=== PATIENT | female | born 2005 | race Caucasian/White ===

== ENCOUNTER 2024-09-04 06:59 | Emergency (ER) | payer MEDICAID, SELFPAY ==
[2024-09-04 07:06] VITALS: BP 132/83; PULSE 67; TEMP 36.7; O2SAT 98; BMI 35.3
--- NOTE | 2024-09-04 07:16 | ED.GENADUL1 ---
HPI HPI - General Adult General Chief complaint: Back Pain/Injury Stated complaint: BACK PAIN Time Seen by Provider: 09/04/24 07:05 Mode of arrival: walk-in History of Present Illness HPI narrative: 19-year-old female presents to the emergency department for back pain. She is complaining of pain in the thoracic area which was not preceded by any trauma. She has a history of scoliosis but typically does not get pain this severe from her scoliosis. She explains that the scoliosis involves most of her spine. No chest pain or shortness of breath. The pain is moderate to severe. No dysuria or hematuria or flank pain. Related Data Home Medications ?Medication ?Instructions ?Recorded ?Confirmed loratadine 10 mg tablet (Claritin) 10 mg PO DAILY 09/04/24 09/04/24 Previous Rx's ?Medication ?Instructions ?Recorded methocarbamol 500 mg tablet 250 mg (1/2 x 500 mg) PO Q8H PRN 09/04/24 pain #14 tabs Allergies Allergy/AdvReac Type Severity Reaction Status Date / Time albuterol (From Ventolin HFA) Allergy thrush Verified 09/04/24 07:06 Opioid HPI Opioid Management Most Recent Opioid Data: Last Pain Scale 9 Today, 07:23 Last MAR Pain Assessment Today, 07:23 Review of Systems ROS Narrative A ten point review of systems is negative except as noted above. PFSH PFSH Social History Little interest or pleasure in doing things: not at all Feeling down, depressed, or hopeless: not at all Exam Narrative Exam Narrative: Nurses note and vital signs reviewed and patient is not hypoxic. General: The patient appears well and in no apparent distress. Patient is resting on cart. Skin: Warm, dry, no pallor noted. There is no rash noted. Head: Normocephalic, atraumatic Eye: Normal conjunctiva, no drainage Ears, Nose, Mouth, and Throat: oral mucosa is moist. Nares patent. Cardiovascular: Regular Rate and Rhythm Respiratory: Patient is in no distress, no accessory muscle use, lungs are clear to auscultation, no wheezing, rales or rhonchi Back: No bruise or rash. No palpable tenderness to lumbar area. The thoracic region where her pain is specifically has no skin defects. There does not seem to be palpable tenderness. GI: Nontender Musculoskeletal: No joint swelling Neurological: A&O, normal speech Psychiatric: Cooperative Constitutional Vital Signs, click to edit/add: Last Vital Signs Temp 98.1 F 09/04/24 07:06 Pulse 67 09/04/24 07:06 Resp 16 09/04/24 07:06 BP 132/83 09/04/24 07:06 Pulse Ox 98 09/04/24 07:06 O2 Del Method Room Air 09/04/24 07:06 Course Vital Signs Vital signs: Vital Signs Temperature 98.1 F 09/04/24 07:06 Pulse Rate 67 09/04/24 07:06 Respiratory Rate 16 09/04/24 07:06 Blood Pressure 132/83 09/04/24 07:06 Pulse Oximetry 98 09/04/24 07:06 Oxygen Delivery Method Room Air 09/04/24 07:06 Temperature 98.1 F 09/04/24 07:06 Pulse Rate 67 09/04/24 07:06 Respiratory Rate 16 09/04/24 07:06 Blood Pressure 132/83 09/04/24 07:06 Pulse Oximetry 98 09/04/24 07:06 Oxygen Delivery Method Room Air 09/04/24 07:06 Medical Decision Making MDM Narrative Medical decision making narrative: X-ray shows known scoliosis but no acute findings. I discussed medication with the patient and her mother and we have agreed that we will put her on a low-dose muscle relaxer that she will take primarily just before bedtime. She will supplement that with a low dose ibuprofen as she seems to be quite sensitive to medications. Treatment diagnosis and follow-up were discussed thoroughly. Differential Diagnosis Differential Diagnosis: Compression fracture, scoliosis, muscle strain Imaging Data Thoracic x-ray: Radiologist's impression: Levoconvex curvature at the thoracolumbar junction, dextroconvex curvature at the mid lumbar spine, degenerative disc disease at the thoracolumbar junction, no acute fracture or dislocation, mild chronic vertebral body height reduction at the T12 and L1 level Discharge Plan Discharge Chief Complaint: Back Pain/Injury Clinical Impression: Back pain, thoracic Patient Disposition: Home, Self-Care Time of Disposition Decision: 08:47 Condition: Good Mode of Transportation: Private Vehicle Prescriptions / Home Meds: New methocarbamol 500 mg tablet 250 mg PO Q8H PRN (Reason: pain) Qty: 14 0RF No Action loratadine [Claritin] 10 mg tablet 10 mg PO DAILY Print Language: Nepali Instructions: Back Pain (ED) Referrals: Physician,Non-Staff, MD [Physician] - 1 week
[2024-09-04] MEDS: KETOROLAC TROMETHAMINE 30 MG/ML VIAL IM (07:23)
== END 2024-09-04 09:02 | disposition home or self-care (01) ==
PROVIDERS: Emergency Provider Emergency Medicine; PCP Family Medicine
DX: M54.6 Pain in thoracic spine (principal); M41.9 Scoliosis, unspecified
CPT/HCPCS: 72070; 96372; 99284; J1885

== ENCOUNTER 2024-10-06 18:05 | Emergency (ER) | payer MEDICAID, SELFPAY ==
[2024-10-06] VITALS (23 sets, daily range): BP systolic 96–128; BP diastolic 46–90; PULSE 65–122; TEMP 36.8; O2SAT 92–100; BMI 38.1
--- OUTSIDE RECORDS SUMMARY | 2024-10-06 18:09 | XMS_ITS | CCD ---
Author Organization [facility] Care Team Providers Care Operator Helper Name Role Phone Diego Farr Primary Care Provider DIEGO FARR Primary Care Unavailable JATIN KWONG Attending Unavailable Diego Farr MD Primary Care Provider NICOLAS WILSON Referring Unavailable DIEGO FARR Primary Care Unavailable KATIE RASHID Attending Unavailable KATIE RASHID Admitting Unavailable DIEGO FARR Primary Care Unavailable Diego Farr MD Primary Care Provider Diego Farr MD Primary Care Provider Loretta TRAVIS, Norma Luna Primary Care [facility] er KATIE RASHID Attending Unavailable LORETTA, GREEN CHOUDARY Primary Care Adeola BURGOS GREEN CHOUDARY Primary Care KATIE Corral Attending Unavailable LORETTA, GREEN CHOUDARY Primary Care KATIE Corral Attending Unavailable LORETTA, GREEN CHOUDARY Primary Care KATIE Corral Admitting Unavailable KATIE RASHID Attending Unavailable Norma Burgos MD Primary Care Provider Sylvia Rose DO Primary Care Provider [phone] Sylvia Rose DO Primary Care Provider Sylvia Rose DO Primary Care Provider CHRIS WORKMAN Attending Unavailable NORMA BURGOS Primary Care Unavailable YUNIOR FERRARI Referring Unavailab MARCIA Orozco Attending Unavailable ROSE, SYLVIA L Primary Care Unavailable FERRARI, YUNIOR MARTINEZ Referring Unavailab le ROSE, SYLVIA L Primary Care Unavailable ROSE, SYLVIA L Primary Care Unavailable ROSE, SYLVIA L Primary Care Unavailable FERRARI, YUNIOR MARTINEZ Referring Unavailab le FERRARI, YUNIOR MARTINEZ Referring Unavailab le ROSE, SYLVIA L Primary Care Unavailable ROSE, SYLVIA L Primary Care Unavailable FERRARI, YUNIOR MARTINEZ Referring Unavailab le ROSE, SYLVIA L Primary Care Unavailable FERRARI, YUNIOR MARTINEZ Referring Unavailab le FERRARI, YUNIOR MARTINEZ Referring Unavailab le ROSE, SYLVIA L Primary Care Unavailable TORSTEN BEGUM Referring Unavailable KAKARALA, GREEN C Primary Care Unavailable FERRARI, YUNIOR GOLDDO Referring Unavailab le ROSE, SYLVIA L Primary Care Unavailable RODRICK WHYTE Attending Unavailable KAKARALA, GREEN C Primary Care Unavailable ROSE, SYLVIA L Primary Care Unavailable FERRARI, YUNIOR GOLDDO Referring Unavailab le KAKARALA, GREEN C Primary Care Unavailable LENA COULTER Attending Unavailable KAKARALA, GREEN C Primary Care Unavailable STEPHEN HERNANDEZ Attending Unavailable ROSE, SYLVIA L Primary Care Unavailable ROSE, SYLVIA L Attending Unavailable ROSE, SYLVIA L Referring Unavailable ROSE, SYLVIA L Primary Care Unavailable ROSE, SYLVIA L Attending Unavailable ROSE, SYLVIA L Referring Unavailable ROSE, SYLVIA L Primary Care Unavailable ROSE, SYLVIA L Attending Unavailable ROSE, SYLVIA L Referring Unavailable ROSE, SYLVIA L Primary Care Unavailable ALEJANDRA CORONEL Attending Unavailable ROSE, SYLVIA L Referring Unavailable ROSE, SYLVIA L Primary Care Unavailable ROSE, SYLVIA L Attending Unavailable DIEGO FARR Referring Unavailable ROSE, SYLIVA L Primary Care Unavailable Allergies Allergy Classification Reported Allergen(s) Allergy Type Date of Onset Reaction(s) Facility (20 sources) Acetaminophen; Translations: [ACETAMINOPHEN] Drug Allergy 3 Dizziness only, Dizziness or Vertigo, Dizziness [facility] (9 sources) Ragweed pollen; Translations: [RAGWEED POLLEN] Propensity to adverse reactions to drug 4 [facility] (9 sources) Instant Hand Chief Sustainability Officer; Translations: [INSTANT HAND USER INTERFACE DEVELOPER] Propensity to adverse reactions to drug 2 Rash [facility] (2 sources) false ragweed pollen extract / western ragweed pollen extract [facility] [address] [facility] short ragweed pollen extract Drug Allergy 4 [facility] Ethyl Alcohol (Skin Cleanser) Propensity to adverse reactions to drug 2 Rash [facility] (6 sources) Cat Dander; Translations: [CAT DANDER] Propensity to adverse reactions to drug 5 [facility] Medications Current Medications Medication Drug Class(es) Dates Sig (Normalized) Sig (Original) [id number] 200 actuat albuterol 0.09 mg/actuat metered dose inhaler (20 sources) beta2-Adrenergic Agonist Start: 08-12-2024 take 2 puff(s) by inhalation every four hours as needed for wheezing PROAIR HFA 90 mcg/actuation inhaler Indications: Moderate persistent asthma without complication Inhale 2 puffs every 4 (four) hours as needed for wheezing or shortness of breath. 18 g 3 08/12/2024 Active Start: 07-31-2024 take 3 mL by inhalat ion every six hours as needed for wheezing albuterol (PROVENTIL,VENTOLIN) 2.5 mg /3 mL (0.083 %) nebulizer solution Indications: Mild intermittent asthma without complication Inhale 3 mL (2.5 mg total) by nebulization every 6 (six) hours as needed for wheezing. 150 mL 07/31/2024 Active Start: 07-29-2024 End: 08-12-2024 take 2 puff(s) by inhalation every six hours as needed for wheezing albuterol (PROAIR HFA) 90 mcg/actuation inhaler Indications: Mild intermittent asthma without complication Inhale 2 puffs every 6 (six) hours as needed for wheezing. 18 g 1 07/29/2024 08/12/2024 Discontinued (Reorder) Start: 05-21-2018 take 2 puff(s) by in halation every six hours as needed albuterol 90 mcg/actuation inhaler Inhale 2 (two) puffs every 6 (six) hours as needed . 0 05/21/2018 Active Start: 09-10-2016 End: 04-02-2019 albuterol (PROVENTIL) (5 MG/ ML) 0.5% nebulizer solution Take 0.5 mLs by nebulization every 6 hours as needed for Wheezing 30 vial 0 09/10/2016 04/02/2019 Discontinued (LIST CLEANUP) End: 07-29-2024 take 2 puff(s) by inhalation four times daily albuterol (PROVENTIL HFA;VENTOLIN HFA) 90 mcg/actuation inhaler Inhale 2 puffs 4 (four) times a day. 07/29/2024 Discontinued take 2 puff(s) by in halation every six hours as needed for wheezing albuterol sulfate HFA 108 (90 Base) MCG/ACT inhaler Inhale 2 puffs into the lungs every 6 hours as needed for Wheezing 0 Active amoxicillin 50 mg/ml / clavulanate 12.5 mg/ml oral suspension (2 sources) Penicillin-class Antibacterial Start: 05-11-2022 amoxicillin-clavulanate (AUGMENTIN) 250-62.5 mg/5 mL suspension atomoxetine 25 mg oral capsule (2 sources) Norepinephrine Reuptake Inhibitor Start: 03-21-2024 End: 04-18-2024 take 1 capsule by mouth in the morning atomoxetine (STRATTERA) 25 mg capsule Indications: Attention deficit hyperactivity disorder (ADHD), predominantly inattentive type Take 1 capsule (25 mg total) by mouth in the morning. 30 capsule 1 03/21/2024 04/18/2024 Discontinued (Side effects) azithromycin 250 mg oral tablet (3 sources) Macrolide Antimicrobial Start: 07-31-2024 End: 08-05-2024 azithromycin (ZITHROMAX) 250 mg tablet Take 2 tablets the first day, then 1 tablet daily for 4 days. 6 tablet 07/31/2024 08/05/2024 Active Start: 04-18-2024 End: 04-23-2024 take 19.7 mL by mouth once daily in the morning azithromycin (ZITHROMAX) 200 mg/5 mL suspension Take 19.7 mL (788 mg total) by mouth in the morning for 5 days. Give 788 mg (19.7 ml) by mouth first day then 392 mg (9.8 ml) by mouth daily x 4 days. 98.5 mL 04/18/2024 04/23/2024 Active budesonide 0.125 mg/ml inhalation suspension (20 sources) Corticosteroid Start: 07-31-2024 End: 08-12-2024 take 2 mL by inhalation in the morning budesonide (PULMICORT) 0.25 mg/2 mL nebulizer solution Indications: Moderate persistent asthma without complication Inhale 2 mL (0.25 mg total) by nebulization in the morning and 2 mL (0.25 mg total) before bedtime. 120 mL 2 08/12/2024 Active End: 07-31-2024 take 2 puff(s) by inhalation in the morning budesonide (PULMICORT) 90 mcg/actuation inhaler Inhale 2 puffs in the morning and 2 puffs before bedtime. 07/31/2024 Discontinued budesonide (PULM ICORT) 0.5 MG/2ML nebulizer suspension Take 2 mLs by nebulization 2 times daily Active Budesonide (PULM ICORT IN) Inhale into the lungs as needed Active budesonide (PULM ICORT) 0.5 mg/2 mL nebulizer solution 2 mL (0.5 mg total) 2 (two) times a day . 0 Active calcium chloride 0.0014 meq/ml / potassium chloride 0.004 meq/ml / sodium chloride 0.103 meq/ml / sodium lactate 0.028 meq/ml injectable solution (1 source) Start: 12-01-2020 lactated ringers infusion cephalexin 500 mg oral capsule (2 sources) Cephalosporin Antibacterial Start: 12-01-2020 End: 12-08-2020 take 1 capsule by mouth four times daily cephALEXin (KEFLEX) 500 MG capsule Take 1 capsule by mouth 4 times daily for 7 days 28 capsule 0 12/01/2020 12/08/2020 Active cetirizine hydrochloride 10 mg oral tablet (2 sources) Histamine-1 Receptor Antagonist Start: 04-26-2022 cetirizine (ZYRTEC) 10 MG tablet CHILDREN'S IBUPROFEN ORAL (8 sources) CHILDREN'S IBUPROFEN ORAL Take 0.5 tablets by mouth. Active diphenhydrAMINE hydrochloride 25 mg oral capsule (5 sources) Histamine-1 Receptor Antagonist take 1 capsule by mouth every six hours as needed diphenhydrAMINE (BENADRYL) 25 MG capsule Take 25 mg by mouth every 6 hours as needed for Itching 0 Active diphenhydrAMINE hydrochloride 10 mg/ml / zinc acetate 1 mg/ml topical cream (12 sources) Histamine-1 Receptor Antagonist Start: 12-16-2023 diphenhydrAMINE-zin c acetate (BENADRYL) 1-0.1 % cream Apply topically 3 times daily as needed. 28 g 12/16/2023 Active fluticasone propionate 0.05 mg/actuat metered dose nasal spray (20 sources) Corticosteroid take 1 spray(s) nasal route in the morning fluticasone propionate (FLONASE ALLERGY RELIEF) 50 mcg/actuation nasal spray Administer 1 spray into each nostril in the morning. Active take 1 spray(s) nasal route once daily fluticasone (FLONASE) 50 MCG/ACT nasal spray 1 spray by Each Nostril route daily Active fluticasone prop ionate (FLONASE) 50 mcg/actuation nasal spray 1 (one) spray every night at bedtime . 0 Active levocetirizine dihydrochloride 5 mg oral tablet (5 sources) Histamine-1 Receptor Antagonist Start: 07-29-2024 take 1 tablet by mouth once daily levocetirizine (XYZAL) 5 mg tablet Indications: Mild intermittent asthma without complication Take 1 tablet (5 mg total) by mouth nightly. 30 tablet 07/29/2024 Active lidocaine 0.04 mg/mg medicated patch (7 sources) Antiarrhythmic, Amide Local Anesthetic Start: 06-23-2024 1 patch, TransDERmal, Administer over 12 Hours, DAILY, First dose on 06/23/24 at 1900, Apply patch to knee. The civil engineering project manager's recommendations for the number of patches that can be applied within a 24-hour period varies from 1 to 4 times daily and the duration of application varies from 8 to 24 hours; refer to the civil engineering project manager's labeling for product-specific recommendations. Start: 06-23-2024 apply 1 dose transde rmal route once daily lidocaine (LIDODERM) 5 % Place 1 patch onto the skin daily 12 hours on, 12 hours off. 30 patch 06/23/2024 Active Start: 09-20-2020 lidocaine 4 % external patch 1 patch Start: 09-20-2020 End: 09-24-2020 apply 1 dose transdermal route once daily lidocaine (LIDODERM) 5 % Place 1 patch onto the skin daily 12 hours on, 12 hours off. 6 patch 0 09/20/2020 09/24/2020 Discontinued (Therapy completed) Start: 08-03-2020 End: 08-03-2020 lidocaine 1 % injection 5 mL loratadine 10 mg oral tablet (20 sources) loratadine (CLAR ITIN) 10 mg tablet Take 1 tablet (10 mg total) by mouth. Active montelukast 5 mg oral tablet (16 sources) Leukotriene Receptor Antagonist take 5 mg by mouth once daily Montelukast Sodium (SINGULAIR PO) Take 5 mg by mouth nightly 0 Active montelukast (Sin gulair) 5 MG chewable tablet mupirocin 20 mg/ml topical cream (3 sources) RNA Synthetase Inhibitor Antibacterial Start: 08-03-2020 End: 09-02-2020 mupirocin (BACTROBAN) 2 % cream Apply topically 3 times daily. 1 Tube 1 08/03/2020 09/02/2020 Active Start: 08-03-2020 End: 08-03-2020 mupirocin (BACTROBAN) 2 % oi ntment Apply topically 3 times daily. 22 g 0 08/03/2020 08/03/2020 Discontinued (DUPLICATE) polyethylene glycol 3350 170 00 mg powder for oral solution (18 sources) Osmotic Laxative polyethylene gl ycol (GLYCOLAX) 17 gram packet Take 17 g by mouth daily as needed. Active End: 11-04-2020 polyethylene glycol (GLYCOLA X) powder Take 8.5 g by mouth as needed 0 11/04/2020 Discontinued (LIST CLEANUP) predniSONE 20 mg oral tablet (2 sources) Start: 07-31-2024 End: 08-05-2024 take 1 tablet by mouth in the morning, then take 1 tablet by mouth at bedtime predniSONE (DELTASONE) 20 mg tablet Take 1 tablet (20 mg total) by mouth in the morning and 1 tablet (20 mg total) before bedtime. Do all this for 5 days. 10 tablet 07/31/2024 08/05/2024 Active Completed/Discontinued Medications Medication Drug Class(es) Dates Sig (Normalized) Sig (Original) acetaminophen 325 mg oral tablet (8 sources) Start: 03-25-2024 End: 03-25-2024 take 4000 mg by mouth every twenty-four hours 325 mg, Oral, ONCE, 1 dose, On 03/25/24 at 1715, Maximum dose of acetaminophen is 4000 mg from all sources in 24 hours. Start: 12-01-2020 take 2 tablets by mo uth every six hours as needed for pain acetaminophen (TYLENOL) 325 MG tablet Take 2 tablets by mouth every 6 hours as needed for Pain 1 tablet 0 12/01/2020 Active Start: 12-01-2020 acetaminophen (TYLENOL) tablet 650 mg Start: 09-20-2020 End: 09-20-2020 acetaminophen (TYLENOL) tabl et 650 mg 50 ml clindamycin 12 mg/ml injection (7 sources) Lincosamide Antibacterial Start: 11-04-2020 End: 11-04-2020 clindamycin (CLEOCIN) 600 mg in dextrose 5 % 50 mL IVPB End: 09-25-2020 take 150 mg by mouth three times daily clindamycin (CLEOCIN) 75 MG/5ML solution Take 150 mg by mouth 3 times daily 0 09/25/2020 Discontinued doxycycline hyclate 100 mg oral capsule (6 sources) Tetracycline-class Drug Start: 08-12-2024 End: 08-19-2024 take 1 capsule by mouth in the morning, then take 1 capsule by mouth at bedtime doxycycline (VIBRAMYCIN) 100 mg capsule Indications: Bronchitis Take 1 capsule (100 mg total) by mouth in the morning and 1 capsule (100 mg total) before bedtime. Do all this for 7 days. 14 capsule 08/12/2024 08/19/2024 Start: 11-04-2020 End: 11-14-2020 take 1 tablet by mouth twice daily doxycycline monohydrate (ADOXA) 100 MG tablet Take 1 tablet by mouth 2 times daily for 10 days 20 tablet 0 11/04/2020 11/14/2020 Active Start: 09-24-2020 End: 10-04-2020 take 1 tablet by mouth twice daily doxycycline monohydrate (ADOXA) 100 MG tablet Take 1 tablet by mouth 2 times daily for 7 days 14 tablet 0 09/24/2020 10/01/2020 Active ibuprofen 400 mg oral tablet (19 sources) Nonsteroidal Anti-inflammatory Drug Start: 03-25-2024 End: 03-25-2024 take 1 dose by mouth once 200 mg, Oral, ONCE, 1 dose, On Mon03/25/24 at 1715 Start: 12-01-2020 take 2 tablets by [facility] every six hours as needed for pain ibuprofen (ADVIL;MOTRIN) 200 MG tablet Take 2 tablets by mouth every 6 hours as needed for Pain 1 tablet 0 12/01/2020 Active Start: 12-01-2020 ibuprofen (ADV IL;MOTRIN) 100 MG/5ML suspension 400 mg Start: 08-03-2020 End: 08-03-2020 ibuprofen (ADVIL;MOTRIN) 100 MG/5ML suspension 400 mg End: 12-01-2020 take 5 mg by mouth every four hours as needed for fever ibuprofen (ADVIL;MOTRIN) 100 MG/5ML suspension Take 5 mg/kg by mouth every 4 hours as needed for Fever 0 12/01/2020 Discontinued (Stop Taking at Discharge) iopamidol (ISOVUE-370) 76 % injection 75 mL (1 source) Start: 11-04-2020 End: 11-04-2020 iopamidol (ISOVUE-370) 76 % injection 75 mL 1 ml ketorolac tromethamine 30 mg/ml cartridge (1 source) Nonsteroidal Anti-inflammatory Drug, Cyclooxygenase Inhibitor Start: 11-26-2023 End: 11-26-2023 ketorolac (TORADOL) injection 30 mg Start: 11-26-2023 End: 11-26-2023 ketorolac (TORADOL) injectio n 30 mg ondansetron 4 mg disintegrating oral tablet (2 sources) Serotonin-3 Receptor Antagonist Start: 06-14-2016 End: 04-02-2019 take 1 tablet by mouth every four hours as needed for nausea ondansetron (ZOFRAN ODT) 4 MG disintegrating tablet Take 1 tablet by mouth every 4 hours as needed for Nausea or Vomiting 15 tablet 0 06/14/2016 04/02/2019 Discontinued (LIST CLEANUP) 50 ml sodium chloride 9 mg/ml injection (5 sources) Start: 11-26-2023 End: 11-26-2023 sodium chloride 0.9 % bolus 1,000 mL Start: 12-01-2020 0.9 % sodium c hloride infusion Start: 12-01-2020 sodium chlorid e flush 0.9 % injection 5-40 mL Start: 11-04-2020 0.9 % sodium c hloride infusion sulfamethoxazole 40 mg/ml / trimethoprim 8 mg/ml oral suspension (7 sources) Dihydrofolate Reductase Inhibitor Antibacterial, Sulfonamide Antimicrobial Start: 08-26-2020 End: 08-26-2020 sulfamethoxazole-trimethopri m (BACTRIM;SEPTRA) 200-40 MG/5ML suspension 20 mL Start: 08-03-2020 End: 08-10-2020 take 20 mL by mouth twice daily sulfamethoxazole-trimethoprim (BACTRIM;SEPTRA) 200-40 MG/5ML suspension Take 20 mLs by mouth 2 times daily for 7 days 280 mL 0 08/03/2020 08/10/2020 Active Start: 07-23-2020 End: 07-23-2020 sulfamethoxazole-trimethopri m (BACTRIM;SEPTRA) 200-40 MG/5ML suspension 20 mL Start: 07-23-2020 End: 07-30-2020 take 20 mL by mouth twice daily sulfamethoxazole-trimethoprim (BACTRIM;SEPTRA) 200-40 MG/5ML suspension Take 20 mLs by mouth 2 times daily for 7 days 280 mL 0 07/23/2020 07/30/2020 Active Start: 04-25-2018 End: 04-02-2019 sulfamethoxazole-trimethopri m (BACTRIM DS;SEPTRA DS) 800-160 MG per tablet Bactrim suspension 200-40 per 5 mL Sig : 20 mL by mouth twice a day for 10 days. 20 tablet 0 04/25/2018 04/02/2019 Discontinued (Therapy completed) Problems Active Problems Problem Classification Problem Date Documented Date Episodic/Chronic Anxiety disorders (1 source) Anxiety Onset: 03-21-2024 Chronic Asthma (17 sources) Mild intermittent asthma; Translations: [Mild intermittent asthma, uncomplicated] Onset: 03-01-2024 03-01-2024 Chronic Attention-deficit, conduct, and disruptive behavior disorders (1 source) Attention deficit hyperactivity disorder, predominantly inattentive type; Translations: [Attention-deficit hyperactivity disorder, predominantly inattentive type] 03-21-2024 Chronic Attention-deficit, conduct, and disruptive behavior disorders (1 source) Attention-deficit hyperactivity disorder, predominantly inattentive type; Translations: [Attention-deficit hyperactivity disorder, predominantly inattentive type] Onset: 03-21-2024 Chronic Attention-deficit, conduct, and disruptive behavior disorders (1 source) Attention deficit hyperactivity disorder Onset: 03-21-2024 Chronic Chronic obstructive pulmonary disease and bronchiectasis (3 sources) Bronchitis; Translations: [Bronchitis, not specified as acute or chronic] Onset: 08-12-2024 04-18-2024 Episodic Digestive congenital anomalies (20 sources) Imperforate anus; 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, 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] Onset: 04-19-2012 03-09-2011 Chronic E Codes: Fall (1 source) Fall; Translations: [Unspecified fall, initial encounter] Episodic Genitourinary congenital anomalies (20 sources) Congenital absence of vagina; 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] Onset: 04-19-2012 Resolved: 02-08-2024 03-09-2011 Chronic Malaise and fatigue (2 sources) Other fatigue; Translations: [Fatigue] Onset: 08-12-2024 08-12-2024 Episodic Other acquired deformities (8 sources) Scoliosis deformity of spine; Translations: [Scoliosis, unspecified] Onset: 02-08-2024 02-08-2024 Chronic Other congenital anomalies (20 sources) VATER association; 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] Onset: 02-08-2024 03-09-2011 Chronic Other congenital anomalies (20 sources) Preauricular dimple; 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] Onset: 06-11-2018 11-18-2020 Chronic Other congenital anomalies (4 sources) Preauricular sinus and cyst; 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] Onset: 05-17-2022 Chronic Other congenital anomalies (1 source) 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; 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] Onset: 02-08-2024 Chronic Other injuries and conditions due to external causes (1 source) Injury of left wrist; Translations: [Unspecified injury of left wrist, hand and finger(s), initial encounter] 04-14-2023 Episodic Other non-traumatic joint disorders (1 source) Knee pain; Translations: [Pain in right knee] Episodic Other non-traumatic joint disorders (1 source) Acute ankle pain; Translations: [Pain in right ankle and joints of right foot] Episodic Other upper respiratory infections (2 sources) Upper respiratory infection; Translations: [Acute upper respiratory infection, unspecified] Onset: 07-29-2024 07-29-2024 Episodic Spondylosis; intervertebral disc disorders; other back problems (1 source) Low back pain; Translations: [Low back pain] Episodic Superficial injury; contusion (2 sources) Contusion of right knee; Translations: [Contusion of right knee, initial encounter] Onset: 06-23-2024 06-23-2024 Episodic Unclassified (1 source) Sprain of right ankle; Translations: [Sprain of right ankle, unspecified ligament, initial encounter] Unclassified (1 source) Injury of left knee Unclassified (1 source) Establish Care Onset: 02-08-2024 Past or Other Problems Problem Classification Problem Date Documented Date Episodic/Chronic Allergic reactions (2 sources) Allergic reaction; Translations: [Allergy, unspecified, initial encounter] Onset: 12-16-2023 12-16-2023 Episodic Cardiac dysrhythmias (2 sources) Palpitations; Translations: [Palpitations] Onset: 12-15-2023 12-15-2023 Episodic E Codes: Natural/environment (1 source) Bitten by dog, initial encounter; Translations: [Bitten by dog, initial encounter] Onset: 03-25-2024 Episodic Joint disorders and dislocations; trauma-related (20 sources) Dislocation of hip joint; Translations: [Unspecified dislocation of unspecified hip, initial encounter] Onset: 11-18-2020 11-18-2020 Episodic Mood disorders (8 sources) Mood disorders Onset: 03-21-2024 Resolved: 08-12-2024 03-21-2024 Nonspecific chest pain (2 sources) Chest pain; Translations: [Chest pain, unspecified] Onset: 11-26-2023 11-26-2023 Episodic Open wounds of extremities (2 sources) Dog bite of hand; Translations: [Open bite of right hand, initial encounter] Onset: 03-25-2024 03-25-2024 Episodic Other and unspecified benign neoplasm (20 sources) Dermoid cyst of face; Translations: [Other benign neoplasm of skin of unspecified part of face] Onset: 09-25-2020 Episodic Other congenital anomalies (8 sources) Vertebral abnormalities, anal atresia, cardiac abnormalities, tracheo-esophageal fistula, renal anomalies, limb defects syndrome; 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] Onset: 10-09-2015 Resolved: 02-08-2024 02-08-2024 Chronic Other connective tissue disease (2 sources) Patellar tendinitis, right knee; Translations: [Patellar tendinitis, right knee] Onset: 03-14-2024 Episodic Other connective tissue disease (1 source) Achilles tendinitis, left leg; Translations: [Achilles tendinitis, left leg] Onset: 08-23-2023 Episodic Other injuries and conditions due to external causes (1 source) Unspecified injury of left shoulder and upper arm, initial encounter; Translations: [Shoulder injury, left, initial encounter] Episodic Other lower respiratory disease (1 source) Cough Onset: 04-18-2024 Episodic Other upper respiratory disease (3 sources) Nasal congestion; Translations: [Nasal Congestion] Onset: 09-18-2023 Episodic Other upper respiratory disease (1 source) Pain in throat Onset: 04-18-2024 Episodic Skin and subcutaneous tissue infections (20 sources) Cellulitis of face; Translations: [Abscess] Onset: 04-08-2018 04-08-2018 Episodic Sprains and strains (10 sources) Sprain of left hand; Translations: [Sprain of unspecified part of left wrist and hand, initial encounter] Onset: 02-08-2024 Resolved: 02-08-2024 Episodic Results Test Name Value Interpretation Reference Range Facility COVID-19, Rapidon 07-29-2024 SARS-CoV-2 (COVID-19) RdRp gene KELLY+probe Ql (Resp) Not detected Not Detected [facility] Comment on above: Rapid NAAT: The specimen is NEGATIVE for SARS-CoV-2, the novel coronavirus associated with COVID-19. The ID NOW COVID-19 assay is designed to detect the virus that causes COVID-19 in patients with signs and symptoms of infection who are suspected of COVID-19. An individual without symptoms of COVID-19 and who is not shedding SARS-CoV-2 virus would expect to have a negative (not detected) result in this assay. Negative results should be treated as presumptive and, if inconsistent with clinical signs and symptoms or necessary for patient management, should be tested with an alternative molecular assay. Negative results do not preclude SARS-CoV-2 infection and should not be used as the sole basis for patient management decisions. Methodology: Isothermal Nucleic Acid Amplification Specimen Description .NASOPHARYNGEAL SWAB [facility] Flu A/B Ag Detectionon 07-29 Flu A Ag Detection Negative Normal NEG [facility] Comment on above: Result Comment: for Influenza A Antigen Performed By: #### F LUABA #### [facility] [address] [place] [address] Frame Hand: Reji Harmon MD Flu B Ag Detection Negative Normal NEG [facility] Comment on above: Result Comment: for Influenza B Antigen. Performed By: #### F LUABA #### [facility] [address] [place] [address] Frame Hand: Reji Harmon MD Rapid Strep Screenon 025 Specimen source Nom (Unsp spec) .THROAT SWAB [facility] Rapid influenza A/B antigens on 07-29-2024 FLUAV Ag Ql (Unsp spec) Negative NEGATIVE B on [facility] Comment on above: for Influenza A Anti gen FLUBV Ag Ql (Unsp spec) Negative NEGATIVE B on [facility] Comment on above: for Influenza B Anti gen. [facility] [id number] 07-29-2024 SARS-CoV-2 (COVID-19) RNA KELLY+probe Ql (Unsp spec) Not detected Normal NOTDET [facility] Comment on above: Result Comment: Rapid NAAT: The specimen is NEGATIVE for SARS-CoV-2, the novel coronavirus associated with COVID-19. The ID NOW COVID-19 assay is designed to detect the virus that causes COVID-19 in patients with signs and symptoms of infection who are suspected of COVID-19. An individual without symptoms of COVID-19 and who is not shedding SARS-CoV-2 virus would expect to have a negative (not detected) result in this assay. Negative results should be treated as presumptive and, if inconsistent with clinical signs and symptoms or necessary for patient management, should be tested with an alternative molecular assay. Negative results do not preclude SARS-CoV-2 infection and should not be used as the sole basis for patient management decisions. Methodology: Isothermal Nucleic Acid Amplification Performed By: #### C OVRB #### [facility] [address] [place] [address] Frame Hand: Reji Harmon MD Strep Group A, Rapidon 07-29 Strep A, Molecular Negative Normal NEG [facility] Comment on above: Performed By: #### R SAB #### [facility] [address] [place] [address] Frame Hand: Reji Harmon MD Source .THROAT SWAB Normal [facility] Comment on above: Performed By: #### R SAB #### [facility] [address] [place] [address] Frame Hand: Reji Harmon MD XR CHEST (2 VW)on 07-29-2024 XR CHEST (2 VW) EXAMINATION: TWO XRAY VIEWS OF THE CHEST 07/29/2024 10:16 am COMPARISON: 11/26/2023 HISTORY: ORDERING SYSTEM PROVIDED HISTORY: cough TECHNOLOGIST PROVIDED HISTORY: cough FINDINGS: The lungs are without acute focal process. There is no effusion or pneumothorax. The cardiomediastinal silhouette is stable. The osseous structures are stable. Stable scoliosis IMPRESSION: No acute process. Interpreted by: Lior Bermeo MD Signed by: Lior Bermeo MD 07/29/24 Final result Normal [facility] XR Chest 2 Viewson No acute process. [facility] RIS CONSOLIDATED EXAMINATION: TWO XRAY VIEWS OF THE CHEST 07/29/2024 10:16 am COMPARISON: 11/26/2023 HISTORY: ORDERING SYSTEM PROVIDED HISTORY: cough TECHNOLOGIST PROVIDED HISTORY: cough FINDINGS: The lungs are without acute focal process. There is no effusion or pneumothorax. The cardiomediastinal silhouette is stable. The osseous structures are stable. Stable scoliosis [facility] RIS CONSOLIDATED Lior Bermeo MD - 07/29/2024 EXAMINATION: TWO XRAY VIEWS OF THE CHEST 07/29/2024 10:16 am COMPARISON: 11/26/2023 HISTORY: ORDERING SYSTEM PROVIDED HISTORY: cough TECHNOLOGIST PROVIDED HISTORY: cough FINDINGS: The lungs are without acute focal process. There is no effusion or pneumothorax. The cardiomediastinal silhouette is stable. The osseous structures are stable. Stable scoliosis IMPRESSION: No acute process. [facility] Radiology Study observation (narrative) [facility] [employer] [facility] XR Chest 2 ViewsOrdered By: Lior Bermeo on 07-29-2024 [facility] [employer] Work Phone: XR KNEE RIGHT (3 VIEWS)on XR KNEE RIGHT (3 VIEWS) EXAMINATION: THREE XRAY VIEWS OF THE RIGHT KNEE 06/23/2024 6:06 pm COMPARISON: Previous right knee study from 12/05/2022 HISTORY: ORDERING SYSTEM PROVIDED HISTORY: Fall with Right Knee Injury TECHNOLOGIST PROVIDED HISTORY: Fall with Right Knee Injury FINDINGS: No evidence of acute fracture or dislocation. No focal osseous lesion. No evidence of joint effusion. No focal soft tissue abnormality. IMPRESSION: No acute abnormality of the knee. Interpreted by: Jarod Kendall MD Signed by: Jarod Kendall MD 06/23/24 Final result Normal [facility] XR Knee - right 3 Viewson No acute abnormality of the knee. [facility] RIS CONSOLIDATED EXAMINATION: THREE XRAY VIEWS OF THE RIGHT KNEE 06/23/2024 6:06 pm COMPARISON: Previous right knee study from 12/05/2022 HISTORY: ORDERING SYSTEM PROVIDED HISTORY: Fall with Right Knee Injury TECHNOLOGIST PROVIDED HISTORY: Fall with Right Knee Injury FINDINGS: No evidence of acute fracture or dislocation. No focal osseous lesion. No evidence of joint effusion. No focal soft tissue abnormality. [facility] RIS CONSOLIDATED Jarod Kendall MD - 06/23/2024 EXAMINATION: THREE XRAY VIEWS OF THE RIGHT KNEE 06/23/2024 6:06 pm COMPARISON: Previous right knee study from 12/05/2022 HISTORY: ORDERING SYSTEM PROVIDED HISTORY: Fall with Right Knee Injury TECHNOLOGIST PROVIDED HISTORY: Fall with Right Knee Injury FINDINGS: No evidence of acute fracture or dislocation. No focal osseous lesion. No evidence of joint effusion. No focal soft tissue abnormality. IMPRESSION: No acute abnormality of the knee. [facility] Radiology Study observation (narrative) [facility] [employer] [facility] XR Knee - right 3 ViewsOrder ed By: Jarodletha Kendall on 06-23-2024 [facility] Work Phone: XR HAND LEFT (MIN 3 VIEWS)on 03-25-2024 XR HAND LEFT (MIN 3 VIEWS) EXAMINATION: THREE XRAY VIEWS OF THE LEFT HAND 03/25/2024 2:09 pm COMPARISON: None. HISTORY: ORDERING SYSTEM PROVIDED HISTORY: dog bite TECHNOLOGIST PROVIDED HISTORY: dog bite FINDINGS: There is no evidence of acute fracture. There is normal alignment. No acute joint abnormality. No focal osseous lesion. No focal soft tissue abnormality. IMPRESSION: No acute osseous abnormality. Interpreted by: Lior Bermeo MD Signed by: Lior Bermeo MD 03/25/24 Final result Normal [facility] Basic Metabolic Panelon 10-30 Est, Asha Diaz Rate - [facility] Comment on above: These results are not intended for use in patients <18 years of age. eGFR results are calculated without a race factor using the 2020 CKD-EPI equation. Careful clinical correlation is recommended, particularly when comparing to results calculated using previous equations. The CKD-EPI equation is less accurate in patients with extremes of muscle mass, extra-renal metabolism of creatine, excessive creatine ingestion, or following therapy that affects renal tubular secretion. Urea nitrogen/Creatinine [Mass ratio] 17 mg/mg - [facility] Basic Metabolic Profon 11-25 Anion gap [Moles/Vol] 15 mmol/L Normal 9-17 [facility] Comment on above: Performed By: #### C CELY ORDONEZ BMP ####[address] [place] [address] lab Director: Reji Harmon MD Calcium [Mass/Vol] 9.9 mg/dL Normal 8.6-10.4 [facility] Comment on above: Performed By: #### C CELY ORDONEZ BMP ####[address] [place] [address] lab Director: Reji Harmon MD Chloride [Moles/Vol] 104 mmol/L Normal 98-107 [facility] Comment on above: Performed By: #### C DP, TROPI, BMP ####[address] , [place] [id number] Lab Director: Reji Harmon MD CO2 [Moles/Vol] 21 mmol/L Normal 20-31 [facility] Comment on above: Performed By: #### C DP, TROPI, BMP ####[address] , [place] [id number] [facility] Director: Reji Harmon MD Creatinine [Mass/Vol] 0.9 mg/dL Normal 0.5-0.9 [facility] Comment on above: Performed By: #### C DP TROPI, BMP ####[address] , [place] [id number] Lab Director: Reji Harmon MD Glucose [Mass/Vol] 81 mg/dL Normal 70-99 [facility] Comment on above: Performed By: #### C DP TROPI, BMP ####[address] , [place] [id number] Lab Director: Reji Harmon MD Potassium [Moles/Vol] 3.8 mmol/L Normal 3.7-5.3 [facility] Comment on above: Performed By: #### C DP TROPI, BMP ####[address] , [place] [id number] Lab Director: Reji Harmon MD Sodium [Moles/Vol] 140 mmol/L Normal 135-144 [facility] Comment on above: Performed By: #### C DP, TROPI, BMP ####[address] [place] [address] lab Director: Reji Harmon MD Urea nitrogen [Mass/Vol] 15 mg/dL Normal 6-20 [facility] Comment on above: Performed By: #### C DP, TROPI, BMP ####[facility] [place] [address] Lab Director: Reji Harmon MD BUN/CRE Ratio 17 Normal 9-[address] [facility] Comment on above: Performed By: #### C CELY ORDONEZ BMP ####[facility] [place] [address] lab Director: Reji Harmon MD GFR/1.73 sq M.predicted among non-blacks MDRD (S/P/Bld) [Vol rate/Area] mL/min/{1.73_m2} Normal >60 [facility] Comment on above: Result Comment: These results are not intended for use in patients <18 years of age. eGFR results are calculated without a race factor using the 2020 CKD-EPI equation. Careful clinical correlation is recommended, particularly when comparing to results calculated using previous equations. The CKD-EPI equation is less accurate in patients with extremes of muscle mass, extra-renal metabolism of creatine, excessive creatine ingestion, or following therapy that affects renal tubular secretion. Performed By: #### C CELY ORDONEZ BMP ####[facility] [place] [address] lab Director: Reji Harmon MD CBC with Auto Differentialon 11-26-2023 Basophils (Bld) [#/Vol] 0.05 10*3/uL [facility] Immature granulocytes (Bld) [#/Vol] 0.05 10*3/uL [facility] Interpretation and review of laboratory results Abnormal [facility] Lymphocytes/100 WBC (Bld) 1.49 % [facility] Monocytes/100 WBC (Bld) 0.91 % B ON [facility] Neutrophils/100 WBC (Bld) 83 % High 34 - 64 % [facility] Nucleated RBC/100 WBC (Bld) [Ratio] 0.0 % 0.0 per 100 WBC [facility] Segmented neutrophils/100 WBC (Bld) 11.70 % High [facility] WBC other (Bld) [#/Vol] 14.3 High B ON [facility] CBC with Diffon 11-26-2023 Basophils/100 WBC (Bld) 0 % Normal 0-2 B ON [facility] Comment on above: Performed By: #### C CELY ORDONEZ, BMP ####[address] [place] [id number] [facility] Director: Reji Harmon MD Eosinophils (Bld) [#/Vol] 0.07 10*3/uL Normal 0.00-0.44 [facility] Comment on above: Performed By: #### C CELY ORDONEZ, BMP ####[address] [place] [address] Lab Director: Reji Harmon MD Eosinophils/100 WBC (Bld) 1 % Normal 1-4 [facility] Comment on above: Performed By: #### C CELY ORDONEZ, BMP ####[address] [place] [address] [facility] Director: Reji Harmon MD Erythrocyte distribution width (RBC) [Ratio] 12.6 % Normal 11.8-14.4 [facility] Comment on above: Performed By: #### C ALEXANDRA ORDONEZI, BMP ####[address] [place] [address] Lab Director: Reji Harmon MD Hematocrit (Bld) [Volume fraction] 42.9 % Normal 36.3-47.1 [facility] Comment on above: Performed By: #### C ALEXANDRA ORDONEZI, BMP ####[address] [place] [id number] Lab Director: Reji Harmon MD Hemoglobin (Bld) [Mass/Vol] 14.8 g/dL Normal 11.9-15.1 [facility] Comment on above: Performed By: #### C ALEXANDRA ORDONEZI, BMP ####[address] [place] [id number] [facility] Director: Reji Harmon MD Immature granulocytes/100 WBC (Bld) 0 % Normal 0 [facility] Comment on above: Performed By: #### C CELY ORDONEZ, BMP ####[address] , [place] [address] Lab Director: Reji Harmon MD Lymphocytes/100 WBC (Bld) 10 % Low 25-45 [facility] Comment on above: Performed By: #### C MERY TROPI, BMP ####[address] [place] [id number] Lab Director: Reji Harmon MD MCH (RBC) [Entitic mass] 27.7 pg Normal 25.2-33.5 [facility] Comment on above: Performed By: #### C CELY ORDONEZ, BMP ####[address] , [facility]83 Lab Director: Reji Harmon MD MCHC (RBC) [Mass/Vol] 34.5 g/dL Normal 28.4-34.8 [facility] Comment on above: Performed By: #### C ALEXANDRA ORDONEZI, BMP ####[address] [place] [id number] Lab Director: Reji Harmon MD MCV (RBC) [Entitic vol] 80.3 fL Low 82.6-102.9 B ON [facility] Comment on above: Performed By: #### C MERY TROPI, BMP ####[address] , [place] [id number] Lab Director: Reji Harmon MD Monocytes/100 WBC (Bld) 6 % Normal 2-8 B ON [facility] Comment on above: Performed By: #### C MERY TROPI, BMP ####[address] [place] [id number] Lab Director: Reji Harmon MD Platelet mean volume (Bld) [Entitic vol] 10.2 fL Normal 8.1-13.5 [facility] Comment on above: Performed By: #### C CELY ORDONEZ, BMP ####[address] , [facility]83 Lab Director: Reji Harmon MD Platelets (Bld) [#/Vol] 318 10*3/uL Normal 138-453 [facility] Comment on above: Performed By: #### C CELY ORDONEZ, BMP ####[address] , [phone] Director: Reji Harmon MD RBC (Bld) [#/Vol] 5.34 10*6/uL High 3.95-5.11 [facility] Comment on above: Performed By: #### C CELY ORDONEZ, BMP ####[address] , [place] [address] Lab Director: Reji Harmon MD Abs. Basophil 0.05 k/uL Normal 0.00-0.[address] [facility] Comment on above: Performed By: #### C CELY ORDONEZ, BMP ####[address] , [phone] Director: Reji Harmon MD Abs.Imm.Granulocyte 0.05 k/uL Normal 0.00-0.30 [facility] Comment on above: Performed By: #### C ALEXANDRA ORDONEZI, BMP ####[address] , [place] [phone] Director: Reji Harmon MD Abs.Neutrophil (Seg) 11.70 k/uL High 1.80-8.00 [facility] Comment on above: Performed By: #### C ALEXANDRA ORDONEZI, BMP ####[address] , [facility]83[facility])[phone] Director: Reji Harmon MD Lymphocytes (Bld) [#/Vol] 1.49 10*3/uL Normal 1.20-5.20 [facility] Comment on above: Performed By: #### C ALEXANDRA ORDONEZI, BMP ####[address] , [place] [phone] Lab Director: Reji Harmon MD Monocytes (Bld) [#/Vol] 0.91 10*3/uL Normal 0.10-1.40 [facility] Comment on above: Performed By: #### C DP TROPI, BMP ####[address] [place] [address] Lab Director: Reji Harmon MD Neutrophil (Seg) 83 % High 34-64 [facility] Comment on above: Performed By: #### C ALEXANDRA ORDONEZI, BMP ####[address] , [place] [phone] Director: eRji Harmon MD NRBC Automated 0.0 per 100 WBC Normal 0.0 [facility] Comment on above: Performed By: #### C ALEXANDRA ORDONEZI, BMP ####[address] , [place] [phone] Director: Reji Harmon MD WBC (Bld) [#/Vol] 14.3 10*3/uL High 4.5-13.5 [facility] Comment on above: Performed By: #### C DP TROPI, BMP ####[address] [place] [address] Lab Director: Reji Harmon MD CKon 11-26-2023 CK [Catalytic activity/Vol] 83 U/L 26 - 192 U/L [facility] Creatine Kinaseon 11-26-2023 CK [Catalytic activity/Vol] 83 U/L Normal 26-192 [facility] Comment on above: Performed By: #### M MARTIN BAILEY, CK #### [facility] [address] [place] [address] Frame Hand: Reji Harmon MD D-Dimer Teston 11-26-2023 D-Dimer Test <0.27 Normal 0.00-0.59 [facility] Comment on above: Result Comment: When combined with a low clinical probability, a D dimer value of <0.50 ug/mL FEU is considered negative for DVT and PE (negative predictive value of 98%, sensitivity of 97%). If this test is not being used to help rule out DVT and PE, then the following reference range should be utilized: 0.00 - 0.59 ug/mL FEU. The D-Dimer assay is intended for use as an aid in the diagnosis of venous thromboembolism (DVT and PE) and the results should be interpreted in conjunction with the patient's medical history, clinical presentation, and other findings. Elevated levels of D-dimer activity can be seen in any state of coagulation activation and is not recommended in patients with therapeutic dose anticoagulant therapy for >24 hours, fibrinolytic therapy within the previous 7 days, trauma or surgery within the previous 4 weeks, disseminated malignancies, aortic aneurysm, sepsis, severe infections, pneumonia, severe skin infections, liver cirrhosis, advanced age, coronary disease, diabetes, and . A very low percentage of patients with DVT may yield D-dimer results below the cutoff of 0.5 ug/mL FEU. This is known to be more prevalent in patients with distal DVT. Performed By: #### MARTIN BUSTAMANTE CK #### [facility] [address] [place] [address] Frame Hand: Reji Harmon MD D-Dimer, Quantitativeon 10-30 Fibrin D-dimer FEU (PPP) [Mass/Vol] [facility] Comment on above: When combined with a low clinical probability, a D dimer value of <0.50 ug/mL FEU is considered negative for DVT and PE (negative predictive value of 98%, sensitivity of 97%). If this test is not being used to help rule out DVT and PE, then the following reference range should be utilized: 0.00 - 0.59 ug/mL FEU. The D-Dimer assay is intended for use as an aid in the diagnosis of venous thromboembolism (DVT and PE) and the results should be interpreted in conjunction with the patient's medical history, clinical presentation, and other findings. Elevated levels of D-dimer activity can be seen in any state of coagulation activation and is not recommended in patients with therapeutic dose anticoagulant therapy for >24 hours, fibrinolytic therapy within the previous 7 days, trauma or surgery within the previous 4 weeks, disseminated malignancies, aortic aneurysm, sepsis, severe infections, pneumonia, severe skin infections, liver cirrhosis, advanced age, coronary disease, diabetes, and . A very low percentage of patients with DVT may yield D-dimer results below the cutoff of 0.5 ug/mL FEU. This is known to be more prevalent in patients with distal DVT. [facility] HCG, ,Urineon 11-25 Beta HCG ( test) Ql (U) Negative Normal NEG [facility] Comment on above: Result Comment: Spec imens with hCG levels near the threshold of the test (25 mIU/mL) may give a negative or indeterminate result. In such cases, another test should be performed with a new specimen in 48-72 hours. If early is suspected clinically in this setting, correlation with quantitative serum b-hCG level is suggested. [facility] has confirmed the use of plasma for this test. This has not been cleared or approved by the U.S. Food and Drug Administration. The FDA has determined that such clearance is not necessary. Performed By: #### U AMI, [facility] #### [facility] [address] [place] [address] Frame Hand: Reji Harmon MD Myoglobinon 11-26-2023 Myoglobin [Mass/Vol] 35 ng/mL Normal 25-58 [facility] Comment on above: Performed By: #### M MARTIN BAILEY CK #### [facility] [address] [place] [address] Frame Hand: Reji Harmon MD Myoglobin, Bloodon Myoglobin [Mass/Vol] 35 ng/mL 25 - 58 ng/mL [facility] Portable XR Chest AP single viewon 11-26-2023 No acute cardiopulmonary abnormality is identified. [facility] RIS CONSOLIDATED EXAMINATION: ONE XRAY VIEW OF THE CHEST 11/26/2023 7:57 pm COMPARISON: 04/18/2017 HISTORY: ORDERING SYSTEM PROVIDED HISTORY: chest pain, shortness of breath TECHNOLOGIST PROVIDED HISTORY: chest pain, shortness of breath FINDINGS: The heart is normal size. There is no focal pulmonary consolidation. There is no pleural effusion or pneumothorax. The visualized bones are unremarkable. [facility] RIS CONSOLIDATED Hussain Ramsey MD - 11/26/2023 EXAMINATION: ONE XRAY VIEW OF THE CHEST 11/26/2023 7:57 pm COMPARISON: 04/18/2017 HISTORY: ORDERING SYSTEM PROVIDED HISTORY: chest pain, shortness of breath TECHNOLOGIST PROVIDED HISTORY: chest pain, shortness of breath FINDINGS: The heart is normal size. There is no focal pulmonary consolidation. There is no pleural effusion or pneumothorax. The visualized bones are unremarkable. IMPRESSION: No acute cardiopulmonary abnormality is identified. [facility] Radiology Study observation (narrative) [facility] Portable XR Chest AP single viewOrdered By: Hussain Ramsey on 11-26-2023 [facility] Work Phone: , Urineon 4 HCG ( test) Ql (U) Negative NEGATIVE [facility] Comment on above: Specimens with hCG l evels near the threshold of the test (25 mIU/mL) may give a negative or indeterminate result. In such cases, another test should be performed with a new specimen in 48-72 hours. If early is suspected clinically in this setting, correlation with quantitative serum b-hCG level is suggested. [employer] has confirmed the use of plasma for this test. This has not been cleared or approved by the U.S. Food and Drug Administration. The FDA has determined that such clearance is not necessary. [facility] Troponinon 11-26-2023 Troponin I.cardiac High sensitivity method [Mass/Vol] 14 ng/L 0 - 14 ng/L [facility] Comment on above: High Sensitivity Tro ponin values cannot be compared with other Troponin methodologies. [facility] Troponin, High Sens 14 ng/L Normal 0-14 [facility] Comment on above: Result Comment: High Sensitivity Troponin values cannot be compared with other Troponin methodologies. Performed By: #### C DP, TROPI, BMP ####[facility] , [place] [id number] Lab Director: Reji Harmon MD Urinalysis w/ Microon 2023 Bacteria TRACE Abnormal NONE [facility] Comment on above: Performed By: #### U AMIC, UHCG ####[address] [place] [address] lab Director: Reji Harmon MD Bilirubin, SemiQt,Ur SMALL Abnormal NEG [facility] Comment on above: Performed By: #### U AMIC, UHCG ####[address] , [place] [id number] Lab Director: Reji Harmon MD Blood, Urine Negative Normal NEG [facility] Comment on above: Performed By: #### U AMIC, UHCG ####[address] [place] [address] Lab Director: Reji Harmon MD Clarity (U) Clear Normal CLEAR [facility] Comment on above: Performed By: #### U AMIC, UHCG ####[address] [place] [address] Lab Director: Reji Harmon MD Color (U) Yellow Normal YEL [facility] Comment on above: Performed By: #### U AMIC, UHCG ####[address] [place] [address] Lab Director: Reji Harmon MD Crystals LM Nom (Urine sed) CALCIUM OXALATE Abnormal NONE [facility] Comment on above: Result Comment: 5 TO 10 Performed By: #### U AMIC, UHCG ####[address] , [place] [id number] [facility] Director: Reji Harmon MD Epithelial cells LM Ql (Urine sed) 10 TO 20 Normal 0-25 [facility] Comment on above: Performed By: #### U AMIC, UHCG ####[address] , [place] [id number] lab Director: Reji Harmon MD Glucose Ql (U) Negative Normal NEG [facility] in Hospital Comment on above: Performed By: #### U AMIC, UHCG ####[address] , [place] [id number] lab Director: Reji Harmon MD Ketones Ql (U) 2+ mg/dL Abnormal NEG [facility] in [facility] Comment on above: Performed By: #### U AMIC, UHCG ####[address] , [place] [id number] lab Director: Reji Harmon MD Leukocyte esterase Test strip Ql (U) Negative Normal NEG [facility] Comment on above: Performed By: #### U AMIC, UHCG ####[address] , [place] [id number] lab Director: Reji Harmon MD Mucus Strands 4+ Abnormal NONE [facility] Comment on above: Performed By: #### U AMIC, UHCG ####[address] , [place] [id number] lab Director: Reji Harmon MD Nitrite,Ur Negative Normal NEG [facility] Comment on above: Performed By: #### U AMIC, UHCG ####[address] , [place] [id number] lab Director: Reji Harmon MD PH,Ur 6.0 Normal 5.0-9.0 [facility] Comment on above: Performed By: #### U AMIC, UHCG ####[address] , [place] [id number] [facility] Director: Reji Harmon MD Protein Ql (U) TRACE Abnormal NEG [facility] in Hospital Comment on above: Performed By: #### U [facility] ####[address] , [place] [id number] Lab Director: Reji Harmon MD Spec. [place],Ur >1.030 High 1.010-1.020 [facility] Comment on above: Performed By: #### U AMIC, [facility] ####[address] , [place] [id number] lab Director: Reji Harmon MD Urine RBC's None Normal 0-2 [facility] Comment on above: Performed By: #### U [facility], [facility] ####[address] , [place] [phone] [facility] Director: Reji Harmon MD Urine WBC's None Normal 0-5 [facility] Comment on above: Performed By: #### U [facility], [facility] ####[address] , [place] [id number] Lab Director: Reji Harmon MD Urobilinogen,Ur Normal Normal 0.0-1.0 [facility] Comment on above: Performed By: #### U [facility], [facility] ####[address] , [place] [id number] Lab Director: Reji Harmon MD Urinalysis with Microscopico n 11-26-2023 Bacteria LM Ql (Urine sed) TRACE Abnormal None [facility] Bilirubin Ql (U) SMALL Abnormal NEGATIVE [facility] Clarity (U) Clear Clear [facility] Color (U) Yellow Yellow [facility] Crystals LM Nom (Urine sed) CALCIUM OXALATE Abnormal None /HPF [facility] Crystals LM Nom (Urine sed) 5 TO 10 Abnormal None /HPF [facility] Epithelial cells LM.HPF (Urine sed) [#/Area] 10 TO 20 [facility] Glucose Test strip (U) [Mass/Vol] Negative NEGATIVE mg/dL [facility] Hemoglobin Auto test strip Ql (U) Negative NEGATIVE [facility] Interpretation and review of laboratory results Abnormal [facility] Ketones (U) [Mass/Vol] 2+ Abnormal NEGAT [place] mg/dL [facility] Leukocyte esterase Test strip Ql (U) Negative NEGATIVE [facility] Mucus Ql (Urine sed) 4+ Abnormal None [facility] Nitrite Ql (U) Negative NEGATIVE [facility] pH (U) 6.0 [pH] 5.0 - 9.0 [facility] Protein (U) [Mass/Vol] TRACE Abnormal NEGAT [place] mg/dL [facility] RBC LM.HPF (Urine sed) [#/Area] None [facility] Specific gravity (U) [Rel density] High 1.010 - 1.020 [facility] Urobilinogen Qn (U) Normal 0.0 - 1. 0 EU/dL [facility] WBC LM.HPF (Urine sed) [#/Area] None [facility] XR CHEST PORTABLEon 11-26-19 24 XR CHEST PORTABLE EXAMINATION: ONE XRAY VIEW OF THE CHEST 11/26/2023 7:57 pm COMPARISON: 04/18/2017 HISTORY: ORDERING SYSTEM PROVIDED HISTORY: chest pain, shortness of breath TECHNOLOGIST PROVIDED HISTORY: chest pain, shortness of breath FINDINGS: The heart is normal size. There is no focal pulmonary consolidation. There is no pleural effusion or pneumothorax. The visualized bones are unremarkable. IMPRESSION: No acute cardiopulmonary abnormality is identified. Interpreted by: Hussain Ramsey MD Signed by: Hussain Ramsey MD 11/26/23 Final result Normal [facility] XR Wrist - left 3 Viewson No acute osseous abnormality identified. [facility] CONSOLIDATED EXAMINATION: 3 XRAY VIEWS OF THE LEFT WRIST 04/14/2023 4:29 pm COMPARISON: December 25, 2021 HISTORY: ORDERING SYSTEM PROVIDED HISTORY: pain TECHNOLOGIST PROVIDED HISTORY: pain FINDINGS: Joint spaces are maintained. No fracture or dislocation identified. No soft tissue abnormality identified. [facility] Sanchez Benoit MD - 04/14/2023 EXAMINATION: 3 XRAY VIEWS OF THE LEFT WRIST 04/14/2023 4:29 pm COMPARISON: December 25, 2021 HISTORY: ORDERING SYSTEM PROVIDED HISTORY: pain TECHNOLOGIST PROVIDED HISTORY: pain FINDINGS: Joint spaces are maintained. No fracture or dislocation identified. No soft tissue abnormality identified. IMPRESSION: No acute osseous abnormality identified. [facility] Study observation (narrative) [employer] XR Wrist - left 3 ViewsOrder ed By: Sanchze Benoit on 04-14-2023 [employer] Work Phone: XR KNEE RIGHT (MIN 4 VIEWS)o n 10-23-2022 No acute osseous or soft tissue abnormality. [facility] EXAMINATION: FOUR XRAY VIEWS OF THE RIGHT KNEE 10/23/2022 2:16 pm COMPARISON: Right knee radiographs performed 09/20/2020. HISTORY: ORDERING SYSTEM PROVIDED HISTORY: pain injury TECHNOLOGIST PROVIDED HISTORY: pain injury FINDINGS: There is no acute osseous abnormality. The joint spaces are maintained. There is no joint effusion. The surrounding soft tissues are unremarkable. [facility] Timoteo Cardenas MD - 10/23/2022 EXAMINATION: FOUR XRAY VIEWS OF THE RIGHT KNEE 10/23/2022 2:16 pm COMPARISON: Right knee radiographs performed 09/20/2020. HISTORY: ORDERING SYSTEM PROVIDED HISTORY: pain injury TECHNOLOGIST PROVIDED HISTORY: pain injury FINDINGS: There is no acute osseous abnormality. The joint spaces are maintained. There is no joint effusion. The surrounding soft tissues are unremarkable. IMPRESSION: No acute osseous or soft tissue abnormality. [facility] Study observation (narrative) [employer] XR KNEE RIGHT (MIN 4 VIEWS)O rdered By: Timoteo Cardenas on 10-23-2022 [employer] Work Phone: No Panel Informationon 12-25 No acute osseous abnormality. [facility] EXAMINATION: XRAY VIEWS OF THE LEFT WRIST; TWO XRAY VIEWS OF THE LEFT HAND 12/25/2021 1:11 pm; 12/25/2021 1:10 pm COMPARISON: None. HISTORY: ORDERING SYSTEM PROVIDED HISTORY: Injury TECHNOLOGIST PROVIDED HISTORY: Injury; ORDERING SYSTEM PROVIDED HISTORY: pain TECHNOLOGIST PROVIDED HISTORY: pain FINDINGS: There is no evidence of acute fracture. There is normal alignment. No acute joint abnormality. No focal osseous lesion. No focal soft tissue abnormality. [facility] Lior Vega MD - 12/25/2021 EXAMINATION: XRAY VIEWS OF THE LEFT WRIST; TWO XRAY VIEWS OF THE LEFT HAND 12/25/2021 1:11 pm; 12/25/2021 1:10 pm COMPARISON: None. HISTORY: ORDERING SYSTEM PROVIDED HISTORY: Injury TECHNOLOGIST PROVIDED HISTORY: Injury; ORDERING SYSTEM PROVIDED HISTORY: pain TECHNOLOGIST PROVIDED HISTORY: pain FINDINGS: There is no evidence of acute fracture. There is normal alignment. No acute joint abnormality. No focal osseous lesion. No focal soft tissue abnormality. IMPRESSION: No acute osseous abnormality. [employer] Phone: No Panel InformationOrdered By: Lior Bermeo on 12-25-2021 [employer] Phone: XR HAND LEFT (2 VIEWS)on Radiology Study observation (narrative) [employer] Phone: XR WRIST LEFT (2 VIEWS)on Radiology Study observation (narrative) [employer] Phone: COVID-19, RapidOrdered By: Meaghan Wilson on 12-01-2020 SARS-CoV-2 (COVID-19) RNA KELLY+probe Ql (Unsp spec) Not detected Not Detected [email or web address] Phone: Comment on above: Rapid NAAT: The specimen is NEGATIVE for SARS-CoV-2, the novel coronavirus associated with COVID-19. The ID NOW COVID-19 assay is designed to detect the virus that causes COVID-19 in patients with signs and symptoms of infection who are suspected of COVID-19. An individual without symptoms of COVID-19 and who is not shedding SARS-CoV-2 virus would expect to have a negative (not detected) result in this assay. Negative results should be treated as presumptive and, if inconsistent with clinical signs and symptoms or necessary for patient management, should be tested with an alternative molecular assay. Negative results do not preclude SARS-CoV-2 infection and should not be used as the sole basis for patient management decisions. Fact sheet for Healthcare Providers: https://www.fda.gov/media/682985/download Fact sheet for Patients: https://www.fda.gov/media/619280/download Methodology: Isothermal Nucleic Acid Amplification Specimen Description .NASOPHARYNGEAL SWAB [facility] [employer] Phone: [facility] [employer] Phone: [id number] 12-01-2020 SARS-CoV-2 (COVID-19) RNA KELLY+probe Ql (Unsp spec) Not detected Normal [facility] Comment on above: Result Comment: Rapid NAAT: The specimen is NEGATIVE for SARS-CoV-2, the novel coronavirus associated with COVID-19. The ID NOW COVID-19 assay is designed to detect the virus that causes COVID-19 in patients with signs and symptoms of infection who are suspected of COVID-19. An individual without symptoms of COVID-19 and who is not shedding SARS-CoV-2 virus would expect to have a negative (not detected) result in this assay. Negative results should be treated as presumptive and, if inconsistent with clinical signs and symptoms or necessary for patient management, should be tested with an alternative molecular assay. Negative results do not preclude SARS-CoV-2 infection and should not be used as the sole basis for patient management decisions. Fact sheet for Healthcare Providers: https://www.fda.gov/media/952962/download Fact sheet for Patients: https://www.fda.gov/media/772444/download Methodology: Isothermal Nucleic Acid Amplification Performed By: #### C OVRB #### 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 Jacqueline Russell Electronically Signed Out rdd/12/02/2020 Clinical Information Pre-op Diagnosis: RIGHT PREAURICULAR SINUS AND FISTULA Operative Findings: PREAURICULAR PIT AND SINUS TRACT Operation Performed: BRACHIAL CLEFT CYST EXCISION Source of Specimen 1: PREAURICULAR PIT AND SINUS RIGHT Gross Description ALINE XIONG, RIGHT PREAURICULAR PIT AND SINUS TRACT 2.6 x 0.8 cm unoriented, irregular piece of skin. It has a 0.9 x 0.1 cm shaggy red opening corresponding to an underlying 0.5 cm tract that nearly extends to a 0.6 x 0.6 x 0.6 cm underlying cyst filled with creamy yellow-renee material. Factory Manager sections including tract and cyst in 1cs. tm Microscopic Description Sinus and cyst show squamous epithelial lining, keratinizing. Deep aspect shows benign cartilage. There is partial rupture with surrounding granulation tissue and chronic inflammation with lymphocytes and plasma cells. A part of the sinus tract lining also consists of granulation tissue. SURGICAL PATHOLOGY CONSULTATION Patient Name: ALINE XIONG [facility] Rec: [id number] Path Number: [id number] [facility] ANATOMIC PATHOLOGY [address] [place] [address]. [place], [place] [address] Normal [facility] Comment on above: Performed By: #### P PPVS #### [employer] [address] [place] [id number] Frame Hand: David Shah MD Basic Metabolic Panel w/ Ref neris to MGOrdered By: Juan R Childress on 11-04-2020 Anion gap [Moles/Vol] 11 mmol/L 9 - 17 mmol/L [email or web address] Phone: Calcium [Mass/Vol] 9.9 mg/dL 8.4 - 10. 2 mg/dL [email or web address] Phone: Chloride [Moles/Vol] 103 mmol/L 98 - 10 7 mmol/L [email or web address] Phone: CO2 [Moles/Vol] 25 mmol/L 20 - 31 mmol/L [email or web address] Phone: Creatinine [Mass/Vol] 0.57 mg/dL 0.50 - 0.90 mg/dL [facility] [employer] Phone: GFR NOT REPORTED >60 mL/min [facility] [employer] Work Phone: GFR Non- Pediatric GFR requires additional information. Refer to NKDEP website for calculator. >60 mL/min [facility] [employer] Phone: Glucose [Mass/Vol] 83 mg/dL 60 - 100 mg/dL [facility] [employer] Phone: Interpretation and review of laboratory results Abnormal [facility] Phone: Potassium [Moles/Vol] 4.1 mmol/L 3.6 - 4.9 mmol/L [facility] Phone: Sodium [Moles/Vol] 139 mmol/L 135 - 144 mmol/L [facility] [employer] Phone: Urea nitrogen (BldV) [Mass/Vol] 12 mg/dL 5 - 18 mg/dL [facility] [employer] Phone: Urea nitrogen/Creatinine (Bld) [Mass ratio] 21 High [facility] Phone: [facility] Phone: CBC Auto DifferentialOrdered By: Juan R Childress on 11-04-2020 [employer] Eos # 0.11 [facility] Work Phone: [employer] Immature Granulocyte 0.04 [facility] [employer] Work Phone: Absolute Lymph # 1.48 [facility] Work Phone: [employer] [place] # 0.99 [facility] Work Phone: Basophils (Bld) [#/Vol] 0.05 10*3/uL [facility] Work Phone: Basophils/100 WBC (Bld) 0 % 0 - 2 % M [facility] [employer] Work Phone: Differential Type NOT REPORTED [email or web address] Phone: Eosinophils/100 WBC (Bld) 1 % 1 - 4 % [email or web address] Phone: Hematocrit (Bld) [Volume fraction] 43.5 % 36.3 - 47.1 % [email or web address] Phone: Hemoglobin.gastrointest inal spec 1 Ql (Stl) 14.9 g/dL 11.9 - 15.1 g/dL [email or web address] Phone: Immature granulocytes/100 WBC (Bld) 0 % 0 [email or web address] Phone: Interpretation and review of laboratory results Abnormal [email or web address] Phone: Lymphocytes/100 WBC (Bld) 13 % Low 25 - 45 % [email or web address] Phone: MCH (RBC) [Entitic mass] 28.8 pg 25.0 - 35.0 pg [email or web address] Phone: MCHC (RBC) [Mass/Vol] 34.3 g/dL 28.4 - 34.8 g/dL [email or web address] Phone: MCV (RBC) [Entitic vol] 84.1 fL 78.0 - 102.0 fL [email or web address] Phone: Monocytes/100 WBC (Bld) 9 % High 2 - 8 % M [employer] Phone: NRBC Automated 0.0 0.0 per 100 WBC [email or web address] Phone: Platelet distribution width (Bld) [Ratio] 12.7 % 11.8 - 14.4 % [email or web address] Phone: Platelet Estimate NOT REPORTED [email or web address] Phone: Platelet mean volume (Bld) [Entitic vol] 9.7 fL 8.1 - 13.5 fL [email or web address] Phone: Platelets (Bld) [#/Vol] 224 10*3/uL [email or web address] Phone: RBC (Bld) [#/Vol] 5.17 10*6/uL High 3.95 - 5.1 1 m/uL [email or web address] Phone: RBC (Bld) [#/Vol] NOT REPORTED [email or web address] Phone: Segmented neutrophils/100 WBC (Bld) 77 % High 34 - 64 % [employer] Work Phone: Segs Absolute 8.66 High [employer] Work Phone: WBC (Bld) [#/Vol] 11.3 10*3/uL [email or web address] Phone: WBC (Bld) [#/Vol] NOT REPORTED [email or web address] Phone: [email or web address] Phone: CT IAC POSTERIOR FOSSA W CON TRASTOrdered By: Juan R Childress on 11-04-2020 Abscess in the right preauricular area with adjacent soft tissue swelling, soft tissue fluid, and skin thickening. Mild heterogeneous enhancement involving the right parotid gland deep to the infectious process and glandular involvement is not excluded. No evidence for osseous involvement. [email or web address] Phone: EXAMINATION: CT OF THE INTERNAL AUDITORY CANAL WITH CONTRAST 11/04/2020 2:07 pm: TECHNIQUE: CT of the internal auditory canal was performed with the administration of intravenous contrast. Multiplanar reformatted images are provided for review. COMPARISON: None. HISTORY: ORDERING SYSTEM PROVIDED HISTORY: abscess preauricular area, recurrent. Want to ensure no bony involvement TECHNOLOGIST PROVIDED HISTORY: abscess preauricular area, recurrent. Want to ensure no bony involvement Decision Support Exception - unselect if not a suspected or confirmed emergency medical condition->Emergency Medical Condition (MA) FINDINGS: RIGHT TEMPORAL BONE: The external auditory canal is clear without evidence of bony erosion. The scutum is intact. The middle ear cavity is clear. The ossicular chain is intact. The mastoid air cells are clear. The inner ear structures appear unremarkable. Normal mineralization of the otic capsule. The internal auditory canal and vestibular aqueduct appear unremarkable. The carotid canal is normal in appearance. The jugular bulb is unremarkable. LEFT TEMPORAL BONE: The external auditory canal is clear without evidence of bony erosion. The scutum is intact. The middle ear cavity is clear. The ossicular chain is intact. The mastoid air cells are clear. The inner ear structures appear unremarkable. Normal mineralization of the otic capsule. The internal auditory canal and vestibular aqueduct appear unremarkable. The carotid canal is normal in appearance. The jugular bulb is unremarkable. BRAIN: The visualized portion of the intracranial contents appear unremarkable. ORBITS: The visualized portion of the orbits demonstrate no acute abnormality. SINUSES: The visualized paranasal sinuses are clear. There is soft tissue swelling, soft tissue fluid, and skin thickening in the right pre-auricular region that extends towards the cheek. There is a walled-off fluid collection in the right pre-auricular area measuring approximately 2.9 x 1.2 cm consistent with known abscess. There is mild heterogeneous enhancement involving the right parotid gland deep to the infectious process and involvement is not excluded. [employer] Work Phone: [place], [facility] Incoming Radiant Results From [employer] - 11/04/2020 2:30 PM EDT EXAMINATION: CT OF THE INTERNAL AUDITORY CANAL WITH CONTRAST 11/04/2020 2:07 pm: TECHNIQUE: CT of the internal auditory canal was performed with the administration of intravenous contrast. Multiplanar reformatted images are provided for review. COMPARISON: None. HISTORY: ORDERING SYSTEM PROVIDED HISTORY: abscess preauricular area, recurrent. Want to ensure no bony involvement TECHNOLOGIST PROVIDED HISTORY: abscess preauricular area, recurrent. Want to ensure no bony involvement Decision Support Exception - unselect if not a suspected or confirmed emergency medical condition->Emergency Medical Condition (MA) FINDINGS: RIGHT TEMPORAL BONE: The external auditory canal is clear without evidence of bony erosion. The scutum is intact. The middle ear cavity is clear. The ossicular chain is intact. The mastoid air cells are clear. The inner ear structures appear unremarkable. Normal mineralization of the otic capsule. The internal auditory canal and vestibular aqueduct appear unremarkable. The carotid canal is normal in appearance. The jugular bulb is unremarkable. LEFT TEMPORAL BONE: The external auditory canal is clear without evidence of bony erosion. The scutum is intact. The middle ear cavity is clear. The ossicular chain is intact. The mastoid air cells are clear. The inner ear structures appear unremarkable. Normal mineralization of the otic capsule. The internal auditory canal and vestibular aqueduct appear unremarkable. The carotid canal is normal in appearance. The jugular bulb is unremarkable. BRAIN: The visualized portion of the intracranial contents appear unremarkable. ORBITS: The visualized portion of the orbits demonstrate no acute abnormality. SINUSES: The visualized paranasal sinuses are clear. There is soft tissue swelling, soft tissue fluid, and skin thickening in the right pre-auricular region that extends towards the cheek. There is a walled-off fluid collection in the right pre-auricular area measuring approximately 2.9 x 1.2 cm consistent with known abscess. There is mild heterogeneous enhancement involving the right parotid gland deep to the infectious process and involvement is not excluded. IMPRESSION: Abscess in the right preauricular area with adjacent soft tissue swelling, soft tissue fluid, and skin thickening. Mild heterogeneous enhancement involving the right parotid gland deep to the infectious process and glandular involvement is not excluded. No evidence for osseous involvement. [email or web address] Phone: [email or web address] Phone: HCG Qualitative, SerumOrdere d By: Juan R Childress on 11-04-2020 hCG Qual Negative NEGATIVE [email or web address] Phone: Comment on above: Specimens with hCG l evels near the threshold of the test (25 mIU/mL) may give a negative or indeterminate result. In such cases, another test should be performed with a new specimen in 48-72 hours. If early is suspected clinically in this setting, correlation with quantitative serum b-hCG level is suggested. [employer] has confirmed the use of plasma for this test. This has not been cleared or approved by the U.S. Food and Drug Administration. The FDA has determined that such clearance is not necessary. [email or web address] Phone: Laboratory - Chemistry and C hemistry - challengeOrdered By: Juan R Childress on 11-04-2020 GFR/1.73 sq M.predicted MDRD (S/P/Bld) [Vol rate/Area] [email or web address] Phone: Comment on above: Average GFR for <20 years old not available. Chronic Kidney Disease: <60 mL/min/1.73sq m Kidney failure: <15 mL/min/1.73sq m eGFR calculated using average adult body mass. Additional eGFR calculator available at: http://www.[employer]/multiple_crcl_2012.htm Stage 1: Some kidney damage normal GFR Stage 2: Mild kidney damage GFR 60-89 Stage 3: Moderate kidney damage GFR 30-59 Stage 4: Severe kidney damage GFR 15-29 Stage 5: Severe kidney damage GFR <15 ESRD - chronic treatment by dialysis or transplant Lactic AcidOrdered By: Yefri Childress on 11-04-2020 Lactate [Moles/Vol] 0.9 mmol/L 0.5 - 2. 2 mmol/L [email or web address] Phone: [email or web address] Phone: No Panel InformationOrdered By: Lena Coulter on 09-20-2020 Soft tissue swelling. No acute fracture or dislocation of the right knee. No acute fracture or dislocation in the right ankle. [email or web address] Phone: EXAMINATION: THREE XRAY VIEWS OF THE RIGHT KNEE; THREE XRAY VIEWS OF THE RIGHT ANKLE 09/20/2020 9:55 pm COMPARISON: None. HISTORY: ORDERING SYSTEM PROVIDED HISTORY: pain s/p fall TECHNOLOGIST PROVIDED HISTORY: pain s/p fall FINDINGS: There is no evidence of acute fracture or dislocation of the right knee. The joint spaces are intact. There is no evidence of joint effusion. There is soft tissue swelling. No evidence of radiopaque foreign body. There is no acute fracture or dislocation of the right ankle. The ankle mortise is grossly intact. The joint spaces are intact. The soft tissue is within normal limits. No radiopaque foreign body. [email or web address] Phone: Y[facility], [facility] Incoming Radiant Results From [employer] - 09/20/2020 10:28 PM EDT EXAMINATION: THREE XRAY VIEWS OF THE RIGHT KNEE; THREE XRAY VIEWS OF THE RIGHT ANKLE 09/20/2020 9:55 pm COMPARISON: None. HISTORY: ORDERING SYSTEM PROVIDED HISTORY: pain s/p fall TECHNOLOGIST PROVIDED HISTORY: pain s/p fall FINDINGS: There is no evidence of acute fracture or dislocation of the right knee. The joint spaces are intact. There is no evidence of joint effusion. There is soft tissue swelling. No evidence of radiopaque foreign body. There is no acute fracture or dislocation of the right ankle. The ankle mortise is grossly intact. The joint spaces are intact. The soft tissue is within normal limits. No radiopaque foreign body. IMPRESSION: Soft tissue swelling. No acute fracture or dislocation of the right knee. No acute fracture or dislocation in the right ankle. [email or web address] Phone: [email or web address] Phone: XR LUMBAR SPINE (2-3 VIEWS)O rdered By: Lena Coulter on 09-20-2020 No acute bony abnormalities [email or web address] Phone: EXAMINATION: THREE XRAY VIEWS OF THE LUMBAR SPINE 09/20/2020 6:54 pm COMPARISON: None. HISTORY: ORDERING SYSTEM PROVIDED HISTORY: fall onto back, h/o scoliosis TECHNOLOGIST PROVIDED HISTORY: fall onto back, h/o scoliosis FINDINGS: Severe S-shaped scoliosis of the spine. Lumbar vertebral bodies are normal in height and alignment. No evidence of fracture. Visualized sacrum is unremarkable. No significant degenerative changes. [email or web address] Phone: Yomi, [facility] Incoming Radiant Results From [employer] - 09/20/2020 10:26 PM EDT EXAMINATION: THREE XRAY VIEWS OF THE LUMBAR SPINE 09/20/2020 6:54 pm COMPARISON: None. HISTORY: ORDERING SYSTEM PROVIDED HISTORY: fall onto back, h/o scoliosis TECHNOLOGIST PROVIDED HISTORY: fall onto back, h/o scoliosis FINDINGS: Severe S-shaped scoliosis of the spine. Lumbar vertebral bodies are normal in height and alignment. No evidence of fracture. Visualized sacrum is unremarkable. No significant degenerative changes. IMPRESSION: No acute bony abnormalities [email or web address] Phone: [email or web address] Phone: XR WRIST RIGHT (MIN 3 VIEWS) Ordered By: Lena Coulter on 09-20-2020 Findings suggest mild scapholunate dissociation [email or web address] Phone: EXAMINATION: XRAY VIEWS OF THE RIGHT WRIST 09/20/2020 6:54 pm COMPARISON: None. HISTORY: ORDERING SYSTEM PROVIDED HISTORY: pain s/p fall TECHNOLOGIST PROVIDED HISTORY: pain s/p fall FINDINGS: The visualized bones are normal. There is no evidence of fracture or dislocation. Mild increased distance between the scaphoid and lunate bones. The remaining joint spaces appear well maintained. The soft tissues are unremarkable. [email or web address] Phone: Yomi, [facility] Incoming Radiant Results From [employer] - 09/20/2020 10:25 PM EDT EXAMINATION: XRAY VIEWS OF THE RIGHT WRIST 09/20/2020 6:54 pm COMPARISON: None. HISTORY: ORDERING SYSTEM PROVIDED HISTORY: pain s/p fall TECHNOLOGIST PROVIDED HISTORY: pain s/p fall FINDINGS: The visualized bones are normal. There is no evidence of fracture or dislocation. Mild increased distance between the scaphoid and lunate bones. The remaining joint spaces appear well maintained. The soft tissues are unremarkable. IMPRESSION: Findings suggest mild scapholunate dissociation [email or web address] Phone: [email or web address] Phone: XR KNEE LEFT (3 VIEWS)Ordere d By: Samantha Martini on 05-24-2019 No acute osseous abnormality of the left knee. [email or web address] Phone: EXAMINATION: THREE XRAY VIEWS OF THE LEFT KNEE 05/24/2019 6:41 pm COMPARISON: None. HISTORY: ORDERING SYSTEM PROVIDED HISTORY: pain TECHNOLOGIST PROVIDED HISTORY: pain FINDINGS: The patient is skeletally immature. No acute fracture or dislocation. Joint spaces are preserved. No joint effusion or focal soft tissue abnormality. [email or web address] Phone: Yomi, [facility] Incoming Radiant Results From [facility] - 05/24/2019 6:52 PM EST EXAMINATION: THREE XRAY VIEWS OF THE LEFT KNEE 05/24/2019 6:41 pm COMPARISON: None. HISTORY: ORDERING SYSTEM PROVIDED HISTORY: pain TECHNOLOGIST PROVIDED HISTORY: pain FINDINGS: The patient is skeletally immature. No acute fracture or dislocation. Joint spaces are preserved. No joint effusion or focal soft tissue abnormality. IMPRESSION: No acute osseous abnormality of the left knee. [employer] Phone: XR SCAPULA LEFT (COMPLETE)on 03-02-2019 No fracture [facility] EXAMINATION: TWO XRAY VIEWS OF THE LEFT SCAPULA 03/02/2019 9:24 pm COMPARISON: None. HISTORY: ORDERING SYSTEM PROVIDED HISTORY: pain s/p fall TECHNOLOGIST PROVIDED HISTORY: pain s/p fall FINDINGS: Cortical margins intact. [facility] Yomi, [facility] Incoming Radiant Results From [employer] - 03/02/2019 9:32 PM EDT EXAMINATION: TWO XRAY VIEWS OF THE LEFT SCAPULA 03/02/2019 9:24 pm COMPARISON: None. HISTORY: ORDERING SYSTEM PROVIDED HISTORY: pain s/p fall TECHNOLOGIST PROVIDED HISTORY: pain s/p fall FINDINGS: Cortical margins intact. IMPRESSION: No fracture [facility] XR SHOULDER LEFT (MIN 2 VIEW S)on 03-02-2019 No acute abnormality. [facility] EXAMINATION: THREE XRAY VIEWS OF THE LEFT SHOULDER 03/02/2019 8:14 pm COMPARISON: None. HISTORY: ORDERING SYSTEM PROVIDED HISTORY: pain s/p fall TECHNOLOGIST PROVIDED HISTORY: pain s/p fall FINDINGS: Glenohumeral joint is normally aligned. No evidence of acute fracture or dislocation. No abnormal periarticular calcifications. The AC joint is unremarkable in appearance. Visualized lung is unremarkable. [facility] Yomi, pn Incoming Radiant Results From [facility] - 03/02/2019 8:46 PM EDT EXAMINATION: THREE XRAY VIEWS OF THE LEFT SHOULDER 03/02/2019 8:14 pm COMPARISON: None. HISTORY: ORDERING SYSTEM PROVIDED HISTORY: pain s/p fall TECHNOLOGIST PROVIDED HISTORY: pain s/p fall FINDINGS: Glenohumeral joint is normally aligned. No evidence of acute fracture or dislocation. No abnormal periarticular calcifications. The AC joint is unremarkable in appearance. Visualized lung is unremarkable. IMPRESSION: No acute abnormality. [facility] Ambulatory Patient Education on 05-02-2018 Ambulatory Patient Education Patient Education Materials Name: Aline Xiong Date: 05/02/2018 08:40:22 [place] : 2005 [facility]: [id number] The following sheet(s) are the Patient Education Leaflets for Aline Xiong Ambulatory Facial Cellulitis Cellulitis is an infection of the deep layers of skin. A break in the skin, such as a cut or scratch, can let bacteria under the skin. It may also occur from an infected oil gland (pimple) or hair follicle. If the bacteria get to deep layers of the skin, it can be serious. If not treated, cellulitis can get into the bloodstream and lymph nodes. The infection can then spread throughout the body. This causes serious illness. Cellulitis causes the affected skin to become red, swollen, warm, and sore. The reddened areas have a visible border. You may have a fever, chills, and pain. Cellulitis is treated with antibiotics taken for 7 to 10 days. Symptoms should get better 1 to 2 days after treatment is started. Make sure to take all the antibiotics for the full number of days until they are gone. Keep taking the medication even if your symptoms go away. Home care Follow these tips: ? Take all of the antibiotic medicine exactly as directed until it is gone. Don't miss any doses, especially during the first 7 days. Don't stop taking it when your symptoms get better. ? Use a cool compress (face cloth soaked in cool water) on your face to help reduce swelling and pain. ? You may use acetaminophen or ibuprofen to reduce pain. Don't use these if you have chronic liver or kidney disease, or ever had a stomach ulcer or gastrointestinal bleeding. Talk with your healthcare provider first. Follow-up care Follow up with your healthcare provider, or as advised. If your infection does not go away on the first antibiotic, your healthcare provider will prescribe a different one. When to seek medical advice Call your healthcare provider right away if any of these occur: ? Fever higher of 100.4? F (38.0? C) or higher after 2 days on antibiotics ? Red areas that spread ? Swelling or pain that gets worse ? Fluid leaking from the skin (pus) ? An eyelid that swells shut or leaks fluid (pus) ? Headache or neck pain that gets worse ? Unusual drowsiness or confusion ? Convulsions (seizure) ? Change in eyesight ? [id number] [employer]. [address] [place] [address], [place] [address]. All rights reserved. This information is not intended as a substitute for professional medical care. Always follow your healthcare professional's instructions. 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 She did have drainage of this over the holiday and had exasperation. This was treated with Bactrim which appears to be improving her symptoms. She no longer has severe pain and the size of the preauricular cyst has gone down. She denies any fever or any pain with palpation of the area. There is continuous drainage. Initially she presented as a New Patient Referral from [place] ED with a chief complaint of bilateral sebaceous cysts helix of ears. The symptoms began March 29 seen in [place] ER for swelling and lump on top of both ears, right>left with tenderness. Describes right ear swelling about the size of small finger-tip initially when seen, left ear has some drainage from the site but minimal swelling. They were given Clindamycin capsule, but unable to swallow and returned to the ED on Apr 01 for increased swelling and discomfort. Both sites were aspirated for drainage and confirmed sebaceous cyst. Grandmother who has custody/POA states swelling has decreased and feels better on Apr 02. Follow up for re-evaluation. 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 Denies airway or esophageal complications. Antibiotics have helped relieve some of the swelling and inflammation. Wearing her glasses seem to aggravate the tenderness so she is keeping them off a while. So far IV antibiotic in the ER, Clindamycin, and incision and drain/aspiration of the sites. Medications used so far to treat this concern include: Clindamycin. Imaging studies related to the chief complaint have not been performed. The patient has been recently evaluated in the emergency room regarding this complaint. Review of Systems General Ped Fatigue: No Ped Fever: No Cardiovascular Ped Chest pain: No Endocrine Gastrointestinal Ped Nausea: No Ped Vomiting: No Genitourinary HEENT Ped Ear Pain: No Musculoskeletal Ped injury: No Neurologic Ped headache: No Respiratory Ped Cough: No Ped SOB: No Skin Ped rash: No Physical Exam Vitals & Measurements T: 37 ?C (Temporal Artery) HT: 146 cm WT: 64.9 kg DOSE WT: 64.9 kg BMI: 30.45 Vitals reviewed and any abnormalities discussed with the patient General: No acute distress, alert and oriented ?3 Voice: Normal tone, volume, and projection noted. Head: Normocephalic atraumatic, no abnormal masses or lesions noted Eyes: Extraocular motion is intact bilaterally, pupils are equally reactive and round to light Ears: External ears with bilateral preauricular pits just anterior and superior to the tragus. Preauricular area on the right with fluctuance extending anteriorly likely from a type I preauricular brachial cleft cyst. Today there is a central drainage point which is draining serous fluid. I was able to drain some serous drainage from the preauricular pit with careful palpation. The area is nontender. Microscopic exam reveals normal ear canals and tympanic membranes bilaterally. Nose: External nasal dorsum is straight. Anterior rhinoscopy reveals normal intranasal anatomy, a straight septum, and normal inferior turbinates bilaterally. Mouth: Dentition is good. Oral tongue has normal mobility and appears normal with no abnormal masses or lesions. Oropharynx: The posterior oropharynx shows no abnormal masses or lesions, cobblestoning, or postnasal drip. Mirror: Not performed due to gag reflex. Neck: Neck is supple bilaterally. No thyromegaly. Laryngeal crepitus is normal. CV: Heart rate normal. Equal bilateral peripheral perfusion. Pulmonary: No audible wheezing, stridor, or stertor noted. Equal chest excursion noted bilaterally. Musculoskeletal: There is no evidence of temporomandibular joint disorders or inflammation of the muscles of mastication bilaterally. Heme/Lymph: There is no cervical lymphadenopathy noted. No visible bruising noted in the head and neck. Neuro: Cranial nerves II - XII are grossly normal with no focal deficits noted. Additional Vitals Body Mass Index Measured: 30.45 kg/m2 Assessment/Plan 1. 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 This is now improving with Bactrim. I was able to express through the pit some serous drainage. I recommend careful decompression of this and allow this to calm down with antibiotics. Eventually this will need to be removed but not while it is acutely inflamed. Furthermore went to minimize any trauma/intervention to the area in order to facilitate eventual removal. facial cellulitis on the right has resolved. She has congenital preauricular pits bilaterally which normally have not caused her any problems until recently on the right side with an infection. This is been treated with antibiotics and she is currently finishing her antibiotics. No evidence of facial cellulitis today but I do palpate fluctuance at the preauricular region from likely a noninfected fluid-filled cyst. At this time I would like to allow for the infection to reside. I did review CT scan that was performed 04/08/2018 showing oval-shaped area of fluid attenuation in the soft tissue anterior and superior to the right external auditory canal suspicious for developing abscess measuring 2.0 cm in AP diameter 1.0 cm in transverse diameter and 2.5 cm in length. 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 At this time her current antibiotics appear to be improving her symptoms. Problem List/Past Medical History Ongoing Asthma Scoliosis Historical No qualifying data Procedure/Surgical History anal opening surgery, dislocated hip, inguinal hernia repair, removal of one ureter. Medications clindamycin 150 mg oral capsule, 450 mg, 3 caps, Oral, q8hr montelukast 5 mg oral tablet, chewable polyethylene glycol 3350 oral powder for reconstitution ProAir HFA 90 mcg/inh inhalation aerosol Pulmicort Flexhaler 90 mcg/inh inhalation powder Allergies No Known Medication Allergies Social History Tobacco Never (less than 100 in lifetime) Use:. Family History Ordered: Referral to ENT Orders: External Referral Problem List/Past Medical History Ongoing Asthma Scoliosis Historical No qualifying data Procedure/Surgical History anal opening surgery, dislocated hip, inguinal hernia repair, removal of one ureter. Medications Bactrim, 2 tabs, Oral, BID clindamycin 150 mg oral capsule, 450 mg, 3 caps, Oral, q8hr montelukast 5 mg oral tablet, chewable polyethylene glycol 3350 oral powder for reconstitution ProAir HFA 90 mcg/inh inhalation aerosol Pulmicort Flexhaler 90 mcg/inh inhalation powder Allergies No Known Medication Allergies Social History Alcohol Never Substance Abuse Denies All Tobacco Never (less than 100 in lifetime) Use:. Never (less than 100 in lifetime) Use:. Family History Hypertension: Grandmother (M). Diagnostic Results No qualifying data available. No qualifying data available. No qualifying data available. No qualifying data available. Electronically signed by JacquelinSharan gillespie DO 05/02/18 11:19 EST Normal [facility] Otolaryngology Office/Clinic Noteon 04-16-2018 Otolaryngology Office/Clinic Note Chief Complaint F/U from [place] ED-cyst right ear History of Present Illness New Ramone Arauz is a pleasant 12 year old female that presents today as a New Patient follow up from [place] ED with a chief complaint of bilateral ear- cysts. The symptoms began the end of March and are described as bilateral cyst on each ear, right worse than left. Seen in ED on 03/30 and returned on 04/01 because the cyst had increased in size and was inflamed and painful> on the right. Severity of the problem is described as moderately severe. Cyst on right ear was aspirated in the ER and cultures obtained. She was then started on Clindamycin. Antibiotic has helped, nothing makes it worse. 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 So far patient has had I&D of cyst, antibiotic treatment. Medications used so far to treat this concern include: Clindamycin. Imaging studies related to the chief complaint have not been performed. The patient has been recently evaluated in the emergency room regarding this complaint. Review of Systems General Ped Fever: No Cardiovascular Ped Chest pain: No Endocrine Gastrointestinal Ped Decreased Appetite: No Genitourinary Ped decreased urine output: No Ped other genitourinary: Yes HEENT Ped Ear Pain: Yes Ped Nasal congestion: No Ped Runny Nose: No Musculoskeletal Ped joint pain: No Ped other musculoskeletal: Yes Neurologic Ped headache: No Respiratory Ped Cough: No Ped SOB: No Skin Ped other skin: Yes Ped rash: No Physical Exam Adult Physical Exam Vitals reviewed and any abnormalities discussed with the patient General: No acute distress, alert and oriented ?3 Voice: Normal tone, volume, and projection noted. Head: Normocephalic atraumatic, no abnormal masses or lesions noted Eyes: Extraocular motion is intact bilaterally, pupils are equally reactive and round to light Ears: External ears and mastoids appear normal. Microscopic exam reveals normal ear canals and tympanic membranes bilaterally Nose: External nasal dorsum is straight. Anterior rhinoscopy reveals normal intranasal anatomy, a straight septum, and normal inferior turbinates bilaterally. Mouth: Dentition is good. Oral tongue has normal mobility and appears normal with no abnormal masses or lesions. Oropharynx: Tonsils are 1-2+. The posterior oropharynx shows no abnormal masses or lesions, cobblestoning, or postnasal drip. Mirror: Not performed due to gag reflex. Neck: Neck is supple bilaterally. No thyromegaly. Laryngeal crepitus is normal. CV: Heart rate normal. Equal bilateral peripheral perfusion. Pulmonary: No audible wheezing, stridor, or stertor noted. Equal chest excursion noted bilaterally. Musculoskeletal: There is no evidence of temporomandibular joint disorders or inflammation of the muscles of mastication bilaterally. Heme/Lymph: There is no cervical lymphadenopathy noted. No visible bruising noted in the head and neck. Neuro: Cranial nerves II - XII are grossly normal with no focal deficits noted. Additional Vitals No qualifying data available. Problem List/Past Medical History Ongoing Asthma Scoliosis Historical No qualifying data Procedure/Surgical History anal opening surgery, dislocated hip, inguinal hernia repair, removal of one ureter. Medications clindamycin 150 mg oral capsule, 450 mg, 3 caps, Oral, q8hr montelukast 5 mg oral tablet, chewable polyethylene glycol 3350 oral powder for reconstitution ProAir HFA 90 mcg/inh inhalation aerosol Pulmicort Flexhaler 90 mcg/inh inhalation powder Allergies No Known Medication Allergies Social History Alcohol Never Substance Abuse Denies All Tobacco Never (less than 100 in lifetime) Use:. Never (less than 100 in lifetime) Use:. Family History Hypertension: Grandmother (M). Electronically Signed by Amber Corea 12/10/18 14:32 EST Sharan Olivier DO [facility] Otolaryngology Office/Clinic Note Chief Complaint Chief Complaint F/U from [place] ED-cyst right ear History of Present Illness New Pt LEÓN Arauz is a pleasant 12 year old female that presents today as a New Patient follow up from [place] ED with a chief complaint of bilateral ear- cysts. The symptoms began the end of March and are described as bilateral cyst on each ear, right worse than left. Seen in ED on 03/30 and returned on 04/01 because the cyst had increased in size and was inflamed and painful> on the right. Severity of the problem is described as moderately severe. Cyst on right ear was aspirated in the ER and cultures obtained. She was then started on Clindamycin. Antibiotic has helped, nothing makes it worse. 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 So far patient has had I&D of cyst, antibiotic treatment. Medications used so far to treat this concern include: Clindamycin. Imaging studies related to the chief complaint have not been performed. The patient has been recently evaluated in the emergency room regarding this complaint. Review of Systems General Ped Fever: No Cardiovascular Ped Chest pain: No Endocrine Gastrointestinal Ped Decreased Appetite: No Genitourinary Ped decreased urine output: No Ped other genitourinary: Yes HEENT Ped Ear Pain: Yes Ped Nasal congestion: No Ped Runny Nose: No Musculoskeletal Ped joint pain: No Ped other musculoskeletal: Yes Neurologic Ped headache: No Respiratory Ped Cough: No Ped SOB: No Skin Ped other skin: Yes Ped rash: No Physical Exam Adult Physical Exam Vitals reviewed and any abnormalities discussed with the patient General: No acute distress, alert and oriented ?3 Voice: Normal tone, volume, and projection noted. Head: Normocephalic atraumatic, no abnormal masses or lesions noted Eyes: Extraocular motion is intact bilaterally, pupils are equally reactive and round to light Ears: External ears and mastoids appear normal. Microscopic exam reveals normal ear canals and tympanic membranes bilaterally Nose: External nasal dorsum is straight. Anterior rhinoscopy reveals normal intranasal anatomy, a straight septum, and normal inferior turbinates bilaterally. Mouth: Dentition is good. Oral tongue has normal mobility and appears normal with no abnormal masses or lesions. Oropharynx: Tonsils are 1-2+. The posterior oropharynx shows no abnormal masses or lesions, cobblestoning, or postnasal drip. Mirror: Not performed due to gag reflex. Neck: Neck is supple bilaterally. No thyromegaly. Laryngeal crepitus is normal. CV: Heart rate normal. Equal bilateral peripheral perfusion. Pulmonary: No audible wheezing, stridor, or stertor noted. Equal chest excursion noted bilaterally. Musculoskeletal: There is no evidence of temporomandibular joint disorders or inflammation of the muscles of mastication bilaterally. Heme/Lymph: There is no cervical lymphadenopathy noted. No visible bruising noted in the head and neck. Neuro: Cranial nerves II - XII are grossly normal with no focal deficits noted. Additional Vitals No qualifying data available. Problem List/Past Medical History Ongoing Asthma Scoliosis Historical No qualifying data Procedure/Surgical History anal opening surgery, dislocated hip, inguinal hernia repair, removal of one ureter. Medications clindamycin 150 mg oral capsule, 450 mg, 3 caps, Oral, q8hr montelukast 5 mg oral tablet, chewable polyethylene glycol 3350 oral powder for reconstitution ProAir HFA 90 mcg/inh inhalation aerosol Pulmicort Flexhaler 90 mcg/inh inhalation powder Allergies No Known Medication Allergies Social History Alcohol Never Substance Abuse Denies All Tobacco Never (less than 100 in lifetime) Use:. Never (less than 100 in lifetime) Use:. Family History Hypertension: Grandmother (M). Electronically Signed by Amber Corea 04/09/18 14:32 EST Sharan Olivier DO [facility] Comment on above: Order Comment: Salima villanueva note Otolaryngology Office/Clinic Note Chief Complaint Follow up from [place] ED-Sebacious cyst bilateral ears History of Present Illness New Pt LEÓN Arauz is a pleasant 12 year old female that presents today as a New Patient Referral from [place] ED with a chief complaint of bilateral sebaceous cysts helix of ears. The symptoms began March 29 seen in [place] [facility] for swelling and lump on top of both ears, right>left with tenderness. Describes right ear swelling about the size of small finger-tip initially when seen, left ear has some drainage from the site but minimal swelling. They were given Clindamycin capsule, but unable to swallow and returned to the ED on Apr 01 for increased swelling and discomfort. Both sites were aspirated for drainage and confirmed sebaceous cyst. Grandmother who has custody/POA states swelling has decreased and feels better on Apr 02. Follow up for re-evaluation. 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 Denies airway or esophageal complications. Antibiotics have helped relieve some of the swelling and inflammation. Wearing her glasses seem to aggravate the tenderness so she is keeping them off a while. So far IV antibiotic in the ER, Clindamycin, and incision and drain/aspiration of the sites. Medications used so far to treat this concern include: Clindamycin. Imaging studies related to the chief complaint have not been performed. The patient has been recently evaluated in the emergency room regarding this complaint. Review of Systems General Ped Fever: No Cardiovascular Ped Chest pain: No Endocrine Gastrointestinal Ped Decreased Appetite: No Genitourinary Ped other genitourinary: Yes HEENT Ped Ear Pain: Yes Ped Nasal congestion: No Ped Runny Nose: No Musculoskeletal Ped joint pain: No Ped other musculoskeletal: Yes Neurologic Ped headache: No Respiratory Ped Cough: No Skin Ped other skin: Yes Physical Exam Vitals & Measurements T: 36.8 ?C (Temporal Artery) HT: 146 cm WT: 64.9 kg BMI: 30.45 Adult Physical Exam Vitals reviewed and any abnormalities discussed with the patient General: No acute distress, alert and oriented ?3 Voice: Normal tone, volume, and projection noted. Head: Normocephalic atraumatic, no abnormal masses or lesions noted Eyes: Extraocular motion is intact bilaterally, pupils are equally reactive and round to light Ears: External ears with bilateral preauricular pits just anterior and superior to the tragus. Preauricular area on the right with fluctuance extending anteriorly likely from a type I preauricular brachial cleft cyst. No purulence expressed. The area is nontender. Microscopic exam reveals normal ear canals and tympanic membranes bilaterally. Nose: External nasal dorsum is straight. Anterior rhinoscopy reveals normal intranasal anatomy, a straight septum, and normal inferior turbinates bilaterally. Mouth: Dentition is good. Oral tongue has normal mobility and appears normal with no abnormal masses or lesions. Oropharynx: The posterior oropharynx shows no abnormal masses or lesions, cobblestoning, or postnasal drip. Mirror: Not performed due to gag reflex. Neck: Neck is supple bilaterally. No thyromegaly. Laryngeal crepitus is normal. CV: Heart rate normal. Equal bilateral peripheral perfusion. Pulmonary: No audible wheezing, stridor, or stertor noted. Equal chest excursion noted bilaterally. Musculoskeletal: There is no evidence of temporomandibular joint disorders or inflammation of the muscles of mastication bilaterally. Heme/Lymph: There is no cervical lymphadenopathy noted. No visible bruising noted in the head and neck. Neuro: Cranial nerves II - XII are grossly normal with no focal deficits noted. Additional Vitals No qualifying data available. Assessment/Plan 1. Preauricular sinus, pit or fistula Recent history of facial cellulitis on the right secondary to infected cyst versus fistula tract in the preauricular region on the right. She has congenital preauricular pits bilaterally which normally have not caused her any problems until recently on the right side with an infection. This is been treated with antibiotics and she is currently finishing her antibiotics. No evidence of facial cellulitis today but I do palpate a mild amount of fluctuance at the preauricular region from likely a noninfected fluid-filled cyst. At this time I would like to allow for the infection to reside. I anticipate imaging to rule out any type I preauricular cyst with facial nerve anomaly prior to any surgical intervention. Problem List/Past Medical History Ongoing Asthma Scoliosis Historical No qualifying data Procedure/Surgical History anal opening surgery, dislocated hip, inguinal hernia repair, removal of one ureter. Medications clindamycin 150 mg oral capsule, 450 mg, 3 caps, Oral, q8hr montelukast 5 mg oral tablet, chewable polyethylene glycol 3350 oral powder for reconstitution ProAir HFA 90 mcg/inh inhalation aerosol Pulmicort Flexhaler 90 mcg/inh inhalation powder Allergies No Known Medication Allergies Social History Tobacco Never (less than 100 in lifetime) Use:. Family History Hypertension: Grandmother (M). Electronically signed by Sharan Olivier DO 04/17/18 14:47 EST Electronically signed by Amber Corea 04/02/2018 10:19 EST Electronically signed by Katy Finch 04/16/2018 16:55 EST [facility] Vital Signs Date Time Vital Sign Value Performing Clinician Facility 08-12-2024 16:12-0400 Body mass index (BMI) [Ratio] 34.5 kg/m2 Sylvia Rose Bebo Work Phone: [facility] [employer] 08-12-2024 16:12-0400 Body temperature 97.3 [degF] Sylvia Rose Bebo Work Phone: [facility] [employer] [facility] 08-12-2024 16:12-0400 Body weight 77.47 kg Sylviahuber Rose Bebo Work Phone: [facility] 08-12-2024 16:12-0400 Diastolic blood pressure 72 mm[Hg] Sylvia Rose Bebo Work Phone: [facility] 08-12-2024 16:12-0400 Heart rate 99 /min Sylvia Rose Bebo Work Phone: [facility] [employer] [facility] 08-12-2024 16:12-0400 Respiratory rate 16 /min Sylvia Rose DO Work Phone: [facility] [employer] [facility] 08-12-2024 16:12-0400 SaO2% (BldA) [Mass fraction] 100 % Sylvia Rose DO Work Phone: [facility] [employer] [facility] 08-12-2024 16:12-0400 Systolic blood pressure 108 mm[Hg] Sylvia Rose DO Work Phone: [facility] 07-29-2024 12:45-0400 Body temperature 98.1 [degF] Stephen Hernandez MD Work Phone: [facility] [employer] 07-29-2024 12:45-0400 Diastolic blood pressure 86 mm[Hg] [facility] 07-29-2024 12:45-0400 Heart rate 83 /min Stephen [facility] 07-29-2024 12:45-0400 Respiratory rate 16 /min Stephen [facility] 07-29-2024 12:45-0400 SaO2% (BldA) [Mass fraction] 100 % Stephen Hernandez MD Work Phone: [facility] [employer] 07-29-2024 12:45-0400 Systolic blood pressure 111 mm[Hg] Stephen Hernandez MD Work Phone: [facility] [employer] 07-29-2024 10:39-0400 Body height 149.9 cm Alejandra Coronel DO Work Phone: [facility] [employer] [facility] 07-29-2024 10:39-0400 Body mass index (BMI) [Ratio] 34.34 kg/m2 Alejandra Coronel DO Work Phone: [facility] [employer] [facility] 07-29-2024 10:39-0400 Body temperature 97.9 [degF] Alejandra Blade DO Work Phone: [facility] [employer] [facility] 07-29-2024 10:39-0400 Body weight 77.11 kg Alejandra Coronel DO Work Phone: [facility] [employer] [facility] 07-29-2024 10:39-0400 Diastolic blood pressure 80 mm[Hg] Alejandra Coronel DO Work Phone: [facility] [employer] [facility] 07-29-2024 10:39-0400 Heart rate 96 /min Alejandra Coronel DO Work Phone: [facility] [employer] [facility] 07-29-2024 10:39-0400 SaO2% (BldA) [Mass fraction] 98 % Alejandra Coronel DO Work Phone: [facility] Comment on above: RA 07-29-2024 10:39-0400 Systolic blood pressure 110 mm[Hg] Alejandra Coronel DO Work Phone: [facility] [employer] [facility] 06-23-2024 16:53-0500 Body height 149.9 cm Sylvia Rose DO Work Phone: [employer] 06-23-2024 16:53-0500 Body mass index (BMI) [Ratio] 35.14 kg/m2 Sylvia Rose DO Work Phone: [employer] 06-23-2024 16:53-0500 Body temperature 98.1 [degF] Sylvia Rose DO Work Phone: [facility] [employer] 06-23-2024 16:53-0500 Body weight 78.93 kg Sylvia Rose DO Work Phone: [employer] 06-23-2024 16:53-0500 Diastolic blood pressure 71 mm[Hg] Sylvia Rose DO Work Phone: [employer] 06-23-2024 16:53-0500 Heart rate 82 /min Sylvia Rose DO Work Phone: [employer] 06-23-2024 16:53-0500 Respiratory rate 16 /min [facility] 06-23-2024 16:53-0500 SaO2% (BldA) [Mass fraction] 100 % [facility] 06-23-2024 16:53-0500 Systolic blood pressure 113 mm[Hg] Sylvia Rose DO Work Phone: [facility] 04-18-2024 13:04-0500 Body height 149.9 cm Sylvia Rose DO Work Phone: [facility] [employer] [facility] 04-18-2024 13:04-0500 Body mass index (BMI) [Ratio] 35.04 kg/m2 Sylvia Rose DO Work Phone: [facility] 04-18-2024 13:04-0500 Body temperature 97.7 [degF] Sylvia Rose DO Work Phone: [facility] 04-18-2024 13:04-0500 Body weight 78.7 kg Sylvia Rose DO Work Phone: [facility] 04-18-2024 13:04-0500 Diastolic blood pressure 66 mm[Hg] Sylvia Rose DO Work Phone: [facility] [employer] [facility] 04-18-2024 13:04-0500 Heart rate 59 /min Sylvia Rose DO Work Phone: [facility] 04-18-2024 13:04-0500 SaO2% (BldA) [Mass fraction] 96 % Sylvia Rose DO Work Phone: [facility] Comment on above: 04-18-2024 13:04-0500 Systolic blood pressure 102 mm[Hg] Sylvia Rose DO Work Phone: [facility] 03-25-2024 16:06-0500 Body temperature 98.71 [degF] Sylvia Rose DO Work Phone: [employer] 03-25-2024 16:06-0500 Diastolic blood pressure 85 mm[Hg] Sylvia Rose DO Work Phone: [facility] [employer] 03-25-2024 16:06-0500 Heart rate 88 /min Sylvia Rose DO Work Phone: [facility] [employer] 03-25-2024 16:06-0500 Respiratory rate 16 /min Sylvia Rose DO Work Phone: [facility] [employer] 03-25-2024 16:06-0500 SaO2% (BldA) [Mass fraction] 98 % Sylvia Rose DO Work Phone: [facility] [employer] 03-25-2024 16:06-0500 Systolic blood pressure 111 mm[Hg] Sylvia Rose DO Work Phone: [facility] [employer] 03-21-2024 15:08-0500 Body temperature 97.3 [degF] Sylvia Rose DO Work Phone: [facility] [employer] [facility] 03-21-2024 15:08-0500 Diastolic blood pressure 72 mm[Hg] Sylvia Rose DO Work Phone: [facility] [employer] [facility] 03-21-2024 15:08-0500 Heart rate 51 /min Sylvia Rose DO Work Phone: [facility] [employer] [facility] 03-21-2024 15:08-0500 SaO2% (BldA) [Mass fraction] 96 % Sylvia Rose DO Work Phone: [facility] Comment on above: 03-21-2024 15:08-0500 Systolic blood pressure 116 mm[Hg] Sylvia Rose DO Work Phone: [facility] 02-08-2024 09:00-0400 Body height 149.9 cm Sylvia Rose DO Work Phone: [facility] 02-08-2024 09:00-0400 Body mass index (BMI) [Ratio] 34.94 kg/m2 Sylvia Rose DO Work Phone: [facility] [employer] [facility] 02-08-2024 09:00-0400 Body temperature 97.11 [degF] Sylvia Rose DO Work Phone: [facility] [employer] [facility] 02-08-2024 09:00-0400 Body weight 78.47 kg Sylvia Rose DO Work Phone: [facility] [employer] [facility] 02-08-2024 09:00-0400 Diastolic blood pressure 84 mm[Hg] Sylvia Rose DO Work Phone: [facility] [employer] [facility] 02-08-2024 09:00-0400 Heart rate 64 /min Sylvia Rose DO Work Phone: [facility] [employer] [facility] 02-08-2024 09:00-0400 SaO2% (BldA) [Mass fraction] 99 % Sylvia Rose DO Work Phone: [facility] Comment on above: 02-08-2024 09:00-0400 Systolic blood pressure 124 mm[Hg] Sylvia Rose DO Work Phone: [facility] [employer] 12-16-2023 17:28-0400 Body height 149.9 cm Chris Workman MD Work Phone: [employer] 12-16-2023 17:28-0400 Body mass index (BMI) [Ratio] 35.14 kg/m2 Chris Workman MD Work Phone: [employer] 12-16-2023 17:28-0400 Body temperature 98.1 [degF] Chris Workman MD Work Phone: [employer] 12-16-2023 17:28-0400 Body weight 78.93 kg Chris Workman MD Work Phone: [employer] 12-16-2023 17:28-0400 Diastolic blood pressure 81 mm[Hg] Chris Workman MD Work Phone: [employer] 12-16-2023 17:28-0400 Heart rate 74 /min Chris Workman MD Work Phone: [employer] 12-16-2023 17:28-0400 Respiratory rate 16 /min Chris Workman MD Work Phone: [employer] 12-16-2023 17:28-0400 SaO2% (BldA) [Mass fraction] 97 % Chris Workman MD Work Phone: [employer] 12-16-2023 17:28-0400 Systolic blood pressure 102 mm[Hg] Chris Workman MD Work Phone: [employer] 11-26-2023 21:49-0400 Heart rate 89 /min Lena Coulter DO Work Phone: [employer] 11-26-2023 21:49-0400 Respiratory rate 25 /min Lena Coulter DO Work Phone: [employer] 11-26-2023 21:49-0400 SaO2% (BldA) [Mass fraction] 98 % Lena Coulter DO Work Phone: [employer] 11-26-2023 21:04-0400 Diastolic blood pressure 55 mm[Hg] Lena Coulter DO Work Phone: [employer] 11-26-2023 21:04-0400 Systolic blood pressure 105 mm[Hg] Lena Coulter DO Work Phone: [employer] 11-26-2023 18:50-0400 Body height 149.9 cm Lena Coulter DO Work Phone: [employer] 11-26-2023 18:50-0400 Body mass index (BMI) [Ratio] 35.35 kg/m2 Lena Coulter DO Work Phone: [employer] 11-26-2023 18:50-0400 Body temperature 98.71 [degF] Lena Coulter DO Work Phone: [facility] [email or web address] 11-26-2023 18:50-0400 Body weight 79.38 kg Lena Coulter DO Work Phone: [facility] [email or web address] 09-18-2023 15:34-0400 Body temperature 98.01 [degF] Norma Burgos MD Work Phone: [employer] 09-18-2023 15:34-0400 Diastolic blood pressure 77 mm[Hg] Norma Burgos MD Work Phone: [employer] 09-18-2023 15:34-0400 Heart rate 80 /min Norma Burgos MD Work Phone: [facility] [email or web address] 09-18-2023 15:34-0400 Respiratory rate 18 /min Norma Burgos MD Work Phone: [facility] [email or web address] 09-18-2023 15:34-0400 SaO2% (BldA) [Mass fraction] 100 % Norma Burgos MD Work Phone: [employer] 09-18-2023 15:34-0400 Systolic blood pressure 111 mm[Hg] Norma Burgos MD Work Phone: [employer] 04-14-2023 16:12-0500 Body height 149.9 cm Norma Burgos MD Work Phone: [employer] 04-14-2023 16:12-0500 Body mass index (BMI) [Percentile] Per age and sex 96.87 % Norma Burgos MD Work Phone: [employer] 04-14-2023 16:12-0500 Body mass index (BMI) [Ratio] 34.34 kg/m2 Norma Burgos MD Work Phone: [employer] 04-14-2023 16:12-0500 Body temperature 98.29 [degF] Noram Burgos MD Work Phone: [employer] 04-14-2023 16:12-0500 Body weight 77.11 kg Norma Burgos MD [facility] [employer] 04-14-2023 16:12-0500 Diastolic blood pressure 82 mm[Hg] Norma Burgos MD [facility] 04-14-2023 16:12-0500 Heart rate 77 /min Norma Burgos MD [facility] [employer] 04-14-2023 16:12-0500 Respiratory rate 18 /min Norma Burgos MD [facility] [employer] 04-14-2023 16:12-0500 SaO2% (BldA) [Mass fraction] 98 % Norma Burgos MD [facility] 04-14-2023 16:12-0500 Systolic blood pressure 109 mm[Hg] Norma Burgos MD [facility] [employer] 10-23-2022 13:20-0400 Body temperature 98.29 [degF] Norma Burgos MD Work Phone[facility] [employer] 10-23-2022 13:20-0400 Diastolic blood pressure 71 mm[Hg] Norma Burgos MD Work Phone[facility] [employer] 10-23-2022 13:20-0400 Heart rate 67 /min Norma Burgos MD [facility] [employer] 10-23-2022 13:20-0400 Respiratory rate 14 /min Norma Burgos MD [facility] [employer] 10-23-2022 13:20-0400 SaO2% (BldA) [Mass fraction] 100 % Norma Burgos MD [facility] 10-23-2022 13:20-0400 Systolic blood pressure 129 mm[Hg] Norma Burgos MD Work Phone: [facility] 06-20-2022 09:07-0500 Body height 149.9 cm Katie Rashid MD Work Phone: [facility] 06-20-2022 09:07-0500 Body mass index (BMI) [Percentile] Per age and sex 96.69 % Katie Rashid MD Work Phone: [facility] 06-20-2022 09:07-0500 Body mass index (BMI) [Ratio] 32.32 kg/m2 Katie Rashid MD Work Phone: [facility] 06-20-2022 09:07-0500 Body weight 72.58 kg Katie Rashid MD Work Phone: [facility] 05-17-2022 09:57-0500 Body height 149.9 cm Katie Rashid MD Work Phone: [facility] 05-17-2022 09:57-0500 Body mass index (BMI) [Percentile] Per age and sex 97.26 % Katie Rashid MD Work Phone: [facility] 05-17-2022 09:57-0500 Body mass index (BMI) [Ratio] 33.33 kg/m2 Katie Rashid MD Work Phone: [facility] 05-17-2022 09:57-0500 Body weight 74.84 kg Katie Rashid MD Work Phone: [facility] 05-17-2022 09:57-0500 Diastolic blood pressure 78 mm[Hg] Katie Rashid MD Work Phone: [facility] 05-17-2022 09:57-0500 Heart rate 86 /min Katie Rashid MD Work Phone: [facility] 05-17-2022 09:57-0500 SaO2% (BldA) [Mass fraction] 94 % Katie Rashid MD Work Phone: [facility] 05-17-2022 09:57-0500 Systolic blood pressure 122 mm[Hg] Katie Rashid MD Work Phone: [facility] 12-25-2021 15:53-0400 Body height 149.9 cm Diego Farr MD Work Phone: [facility] 12-25-2021 15:53-0400 Body mass index (BMI) [Percentile] Per age and sex 97.14 % Diego Farr MD Work Phone: [facility] 12-25-2021 15:53-0400 Body mass index (BMI) [Ratio] 32.72 kg/m2 Diego Farr MD Work Phone: [facility] 12-25-2021 15:53-0400 Body temperature 97.5 [degF] Diego Farr MD Work Phone: [facility] 12-25-2021 15:53-0400 Body weight 73.48 kg Diego Farr MD Work Phone: [facility] 12-25-2021 15:53-0400 Diastolic blood pressure 72 mm[Hg] Diego Farr MD Work Phone: [facility] 12-25-2021 15:53-0400 Heart rate 88 /min Diego Farr MD Work Phone: [facility] 12-25-2021 15:53-0400 Respiratory rate 16 /min Diego Farr MD Work Phone: [facility] 12-25-2021 15:53-0400 SaO2% (BldA) [Mass fraction] 100 % Diego Farr MD Work Phone: [facility] 12-25-2021 15:53-0400 Systolic blood pressure 114 mm[Hg] Diego Farr MD Work Phone: [facility] 12-01-2020 11:15-0400 Diastolic blood pressure 90 mm[Hg] Katie Rashid MD Work Phone: [facility] [employer] Work Phone: 12-01-2020 11:15-0400 Heart rate 74 /min Katie Rashid MD Work Phone: [employer] Work Phone: 12-01-2020 11:15-0400 Respiratory rate 18 /min Katie Rashid MD Work Phone: [employer] Work Phone: 12-01-2020 11:15-0400 Systolic blood pressure 115 mm[Hg] Katie Rashid MD Work Phone: [employer] Work Phone: 12-01-2020 10:45-0400 Body temperature 97.39 [degF] Katie Rashid MD Work Phone: [employer] Work Phone: 12-01-2020 10:45-0400 SaO2% (BldA) [Mass fraction] 100 % Katie Rashid MD Work Phone: [employer] Work Phone: 12-01-2020 07:39-0400 Body height 149.9 cm Katie Rashid MD Work Phone: [employer] Work Phone: 12-01-2020 07:39-0400 Body mass index (BMI) [Ratio] 28.22 kg/m2 Katie Rashid MD Work Phone: [employer] Work Phone: 12-01-2020 07:39-0400 Body weight 63.37 kg Katie Rashid MD Work Phone: [employer] Work Phone: 11-04-2020 10:51-0400 Body height 149.9 cm Diego Farr MD Work Phone: [employer] Work Phone: 11-04-2020 10:51-0400 Body mass index (BMI) [Ratio] 28.28 kg/m2 Diego Farr MD Work Phone: [employer] Work Phone: 11-04-2020 10:51-0400 Body temperature 98.91 [degF] Diego Farr MD Work Phone: [employer] Work Phone: 11-04-2020 10:51-0400 Body weight 63.5 kg Diego Farr MD Work Phone: [employer] Work Phone: 11-04-2020 10:51-0400 Diastolic blood pressure 64 mm[Hg] Diego Farr MD Work Phone: [employer] Work Phone: 11-04-2020 10:51-0400 Heart rate 100 /min Diego Farr MD Work Phone: [employer] Work Phone: 11-04-2020 10:51-0400 Respiratory rate 16 /min Diego Farr MD Work Phone: [employer] Work Phone: 11-04-2020 10:51-0400 SaO2% (BldA) [Mass fraction] 100 % Diego Farr MD Work Phone: [employer] Work Phone: 11-04-2020 10:51-0400 Systolic blood pressure 107 mm[Hg] Diego Farr MD Work Phone: [employer] Work Phone: 09-25-2020 12:18-0400 Body temperature 97.81 [degF] Diego Cruz MD [employer] Work Phone: 09-25-2020 12:18-0400 Body weight 63.05 kg Diego Cruz MD [employer] Work Phone: 09-25-2020 12:18-0400 Diastolic blood pressure 69 mm[Hg] Diego Cruz MD [employer] Work Phone: 09-25-2020 12:18-0400 Heart rate 67 /min Diego Cruz MD [employer] Work Phone: 09-25-2020 12:18-0400 Respiratory rate 17 /min Diego Cruz MD [employer] Work Phone: 09-25-2020 12:18-0400 SaO2% (BldA) [Mass fraction] 98 % Diego Cruz MD [employer] Work Phone: 09-25-2020 12:18-0400 Systolic blood pressure 105 mm[Hg] Diego Cruz MD [employer] Work Phone: 09-24-2020 18:38-0400 Body temperature 98.8 [degF] Diego Farr MD Work Phone: [employer] Work Phone: 09-24-2020 18:38-0400 Diastolic blood pressure 67 mm[Hg] Diego Farr MD Work Phone: [employer] Work Phone: 09-24-2020 18:38-0400 Heart rate 69 /min Diego Farr MD Work Phone: [employer] Work Phone: 09-24-2020 18:38-0400 Respiratory rate 16 /min Diego Farr MD Work Phone: [employer] Work Phone: 09-24-2020 18:38-0400 SaO2% (BldA) [Mass fraction] 100 % Diego Farr MD Work Phone: [employer] Work Phone: 09-24-2020 18:38-0400 Systolic blood pressure 113 mm[Hg] Diego Farr MD Work Phone: [employer] Work Phone: 09-20-2020 20:27-0400 Body temperature 97.7 [degF] Lena Coulter DO Work Phone: [employer] Work Phone: 09-20-2020 20:27-0400 Diastolic blood pressure 77 mm[Hg] Lena Coulter DO Work Phone: [employer] Work Phone: 09-20-2020 20:27-0400 Heart rate 72 /min Lena Coulter DO Work Phone: [employer] Work Phone: 09-20-2020 20:27-0400 Respiratory rate 18 /min Lena Coulter DO Work Phone: [employer] Work Phone: 09-20-2020 20:27-0400 SaO2% (BldA) [Mass fraction] 98 % Lena Coulter DO Work Phone: [employer] Work Phone: 09-20-2020 20:27-0400 Systolic blood pressure 131 mm[Hg] Lena Coulter DO Work Phone: [employer] Work Phone: 08-26-2020 21:26-0400 Body height 149.9 cm Jatin Kwong MD Work Phone: [employer] Work Phone: 08-26-2020 21:26-0400 Body mass index (BMI) [Ratio] 27.66 kg/m2 Jatin Kwong MD Work Phone: [employer] Work Phone: 08-26-2020 21:26-0400 Body weight 62.14 kg Jatin Kwong MD Work Phone: [employer] Work Phone: 08-26-2020 21:26-0400 Diastolic blood pressure 80 mm[Hg] Jatin Kwong MD Work Phone: [employer] Work Phone: 08-26-2020 21:26-0400 Heart rate 80 /min Jatin Kwong MD Work Phone: [employer] Work Phone: 08-26-2020 21:26-0400 Respiratory rate 18 /min Jatin Kwong MD Work Phone: [employer] Work Phone: 08-26-2020 21:26-0400 SaO2% (BldA) [Mass fraction] 97 % Jatin Kwong MD Work Phone: [employer] Work Phone: 08-26-2020 21:26-0400 Systolic blood pressure 123 mm[Hg] Jatin Kwong MD Work Phone: [employer] Work Phone: 08-26-2020 20:54-0400 Body temperature 98.2 [degF] Jatin Kwong MD Work Phone: [employer] Work Phone: 08-03-2020 17:59-0400 Body weight 61.69 kg [employer] Work Phone: 08-03-2020 17:58-0400 BP Diastolic 76 mm[Hg] [employer] Work Phone: 08-03-2020 17:58-0400 BP Systolic 112 mm[Hg] Meghana Cabral [employer] Work Phone: 08-03-2020 17:58-0400 Pulse (Heart Rate) 94 /min [employer] Work Phone: 08-03-2020 17:58-0400 Pulse Oximetry 99 % [employer] Work Phone: 08-03-2020 17:58-0400 Respiratory Rate 16 /min [employer] Work Phone: 08-03-2020 17:56-0400 Body Temperature 99.3 [degF] Meghana Cabral [employer] Work Phone: 07-23-2020 17:26-0400 Body Temperature 98.91 [degF] Demetrius Orlando [employer] Work Phone: 07-23-2020 17:26-0400 Body weight 62.14 kg Demetriusmelanie Orlando [employer] Work Phone: 07-23-2020 17:26-0400 Pulse (Heart Rate) 97 /min Demetriusmelanie Orlando [employer] Work Phone: 07-23-2020 17:26-0400 Pulse Oximetry 100 % Demetrius Darion [employer] Work Phone: 07-23-2020 17:26-0400 Respiratory Rate 16 /min Demetriusmelanie Orlando [employer] Work Phone: 05-24-2019 18:18-0500 Body temperature 97.81 [degF] Diego Farr MD Work Phone: [employer] Work Phone: 05-24-2019 18:18-0500 Body weight 70.31 kg Diego Farr MD Work Phone: [employer] Work Phone: 05-24-2019 18:18-0500 Diastolic blood pressure 70 mm[Hg] Diego Farr MD Work Phone: [employer] Work Phone: 05-24-2019 18:18-0500 Heart rate 81 /min Diego Farr MD Work Phone: [employer] Work Phone: 05-24-2019 18:18-0500 Respiratory rate 17 /min Diego Farr MD Work Phone: [employer] Work Phone: 05-24-2019 18:18-0500 SaO2% (BldA) [Mass fraction] 99 % Diego Farr MD Work Phone: [employer] Work Phone: 05-24-2019 18:18-0500 Systolic blood pressure 122 mm[Hg] Diego Farr MD Work Phone: [employer] Work Phone: 04-02-2019 20:13-0500 Respiratory Rate 12 /min Diego [employer] 04-02-2019 19:21-0500 Body Temperature 97.7 [degF] Diego [employer] 04-02-2019 19:21-0500 BP Diastolic 75 mm[Hg] Diego [employer] [place] 04-02-2019 19:21-0500 BP Systolic 105 mm[Hg] Diego [facility] [place] 04-02-2019 19:21-0500 Pulse (Heart Rate) 86 /min Diego [employer] [place] 04-02-2019 19:21-0500 Pulse Oximetry 99 % Diego [employer] [place] 03-02-2019 19:26-0400 BP Diastolic 78 mm[Hg] Diego [employer] [place] 03-02-2019 19:26-0400 BP Systolic 112 mm[Hg] Diego [employer] [place] 03-02-2019 19:26-0400 Pulse (Heart Rate) 82 /min Diego Farr [place] 03-02-2019 19:25-0400 Pulse Oximetry 98 % [place] [employer] [place] 03-02-2019 19:25-0400 Respiratory Rate 16 /min Diego Farr [employer] [place] Encounters Encounter Date Encounter Type Care Provider Facility Start: 08-21-2024 End: 08-21-2024 Telephone encounter Sylvia oRse DO Work Phone: [facility] Start: 08-12-2024 End: 08-12-2024 ambulatory SYLVIA ROSE [facility] Start: 08-12-2024 End: 08-12-2024 Office outpatient visit 25 minutes Sylvia Rose DO [facility] Comment on above: Moderate persistent asthma without complication (Primary Dx); Bronchitis; Renal agenesis, unilateral; Other fatigue Start: 07-31-2024 End: 07-31-2024 [facility] Comment on above: Med Refill Start: 07-29-2024 End: 07-29-2024 Emergency department patient visit Stephen Hernandez MD Work Phone: [facility] Comment on above: Upper respiratory tr act infection, unspecified type (Primary Dx) Start: 07-29-2024 End: 07-29-2024 Office outpatient visit 15 minutes Alejandra Coronel DO Work Phone: [facility] Comment on above: Mild intermittent as thma without complication (Primary Dx); VATER syndrome Start: 07-29-2024 End: 07-29-2024 ambulatory [facility] Start: 06-23-2024 End: 06-23-2024 Emergency department patient visit [facility] Emergency Department Comment on above: Contusion of right k nee, initial encounter (Primary Dx) Start: 04-18-2024 End: 04-18-2024 Office outpatient visit 15 minutes Sylvia Rose DO Work Phone: [facility] Comment on above: Bronchitis (Primary Dx) Start: 04-18-2024 End: 04-18-2024 ambulatory [facility] Start: 04-01-2024 End: 04-01-2024 [facility] Start: 04-01-2024 End: 04-01-2024 Subsequent hospital visit by physician Palak Mixon PTA [facility] Physical Therapy Comment on above: Arrived Start: 04-01-2024 [facility] Start: 03-27-2024 End: 03-27-2024 ambulatory [facility] Start: 03-27-2024 End: 03-27-2024 Subsequent hospital visit by physician [facility] Comment on above: Arrived Start: 03-25-2024 End: 03-25-2024 Emergency department patient visit [facility] ED Comment on above: Dog bite of right juarez nd, initial encounter (Primary Dx) Start: 03-25-2024 End: 03-25-2024 ambulatory Y[facility]IOR [facility] Start: 03-25-2024 End: 03-25-2024 Subsequent hospital visit by physician Kenia Boles PTA [facility] Physical Therapy Comment on above: Arrived Start: 03-21-2024 End: 03-21-2024 Office outpatient visit 15 minutes Sylvia Rose DO Work Phone: [facility] Comment on above: Attention deficit hy peractivity disorder (ADHD), predominantly inattentive type (Primary Dx) Start: 03-21-2024 End: 03-21-2024 [facility] Start: 03-20-2024 End: 03-20-2024 [facility] Start: 03-20-2024 End: 03-20-2024 Subsequent hospital visit by physician Marcia Mcmanus PT [facility] Physical Therapy Comment on above: Arrived Start: 03-18-2024 End: 03-18-2024 ambulatory [facility] Start: 03-18-2024 End: 03-18-2024 Subsequent hospital visit by physician Kenia Boles PTA [facility] Physical Therapy Comment on above: Arrived Start: 03-15-2024 End: 03-15-2024 Subsequent hospital visit by physician [facility] Start: 03-14-2024 End: 03-14-2024 ambulatory [facility] Start: 03-14-2024 End: 03-14-2024 Subsequent hospital visit by physician Palak Mixon PTA [facility] Physical Therapy Comment on above: Arrived Start: 03-08-2024 End: 03-08-2024 ambulatory [facility] Start: 03-08-2024 End: 03-08-2024 Subsequent hospital visit by physician Marcia Mcmanus PT [facility] Physical Therapy Comment on above: Arrived Start: 03-08-2024 ambulatory [facility] Start: 02-08-2024 End: 02-08-2024 Initial preventive medicine new pt age 18-39yrs Sylvia Rose DO Work Phone: [facility] Comment on above: Routine adult health maintenance (Primary Dx); VATER syndrome; Renal agenesis, unilateral; Mild intermittent asthma without complication Start: 02-08-2024 End: 02-08-2024 Patient encounter status Sylvia Rose DO Work Phone: [facility] [employer] Work Phone: Start: 02-08-2024 End: 02-08-2024 ambulatory [facility] Start: 02-08-2024 Encounter for genera l adult medical examination without abnormal findings [facility] Start: 12-16-2023 End: 12-16-2023 Emergency department patient visit Chris Workman MD Work Phone: [facility] ED Comment on above: Allergic reaction, i nitial encounter (Primary Dx) Start: 12-15-2023 End: 12-17-2023 ambulatory TORSTEN Armand Narcisa BEGUM [facility] Start: 12-15-2023 End: 12-17-2023 Subsequent hospital visit by physician [facility] [employer] [facility] Comment on above: Palpitations Start: 11-26-2023 End: 11-26-2023 Emergency department patient visit Lena Coulter DO Work Phone: [facility] ED Comment on above: Chest pain, unspecif ied type (Primary Dx) Start: 09-18-2023 End: 09-18-2023 Emergency department patient visit NORMA BURGOS [facility] ED Start: 08-23-2023 End: 08-23-2023 Emergency department patient visit RODRICK WHYTE [facility] Start: 04-14-2023 End: 04-14-2023 Emergency department patient visit Norma Burgos MD Work Phone: [facility] ED Comment on above: Left wrist injury, i nitial encounter (Primary Dx) Start: 10-23-2022 End: 10-23-2022 Emergency department patient visit Norma Burgos MD Work Phone: [facility] ED Comment on above: Sprain of right knee , unspecified ligament, initial encounter (Primary Dx) Start: 06-20-2022 End: 06-20-2022 ambulatory KATIE RASHID [facility] Start: 06-20-2022 End: 06-20-2022 Postop follow up visit related to original px Katie Rashid MD Work Phone: [facility] Comment on above: Congenital preauricu lar pit (Primary Dx) Start: 06-10-2022 End: 06-10-2022 ambulatory [facility] Start: 06-01-2022 ambulatory [facility] Ambulatory Start: 05-17-2022 [facility] Katie Rashid MD Work Phone: [facility] Comment on above: Congenital preauricu lar pit (Primary Dx); Soft tissue infection Start: 05-17-2022 End: 05-21-2022 ambulatory [facility] Ambulatory Start: 05-17-2022 End: 05-17-2022 Office outpatient visit 25 minutes Katie Rashid MD Work Phone: [facility] [place] Comment on above: Congenital preauricu lar pit (Primary Dx); Soft tissue infection; Renal agenesis, unilateral Start: 12-25-2021 End: 12-25-2021 Emergency department patient visit Diego Farr MD Work Phone: [facility] ED Comment on above: Sprain of left hand, initial encounter (Primary Dx) Start: 12-01-2020 End: 12-01-2020 ambulatory KATIE RASHID [facility] Start: 12-01-2020 End: 12-01-2020 ambulatory NICOLAS WILSON [facility] Start: 12-01-2020 End: 12-01-2020 Subsequent hospital visit by physician Katie Rashid MD Work Phone: [facility] OR Start: 12-01-2020 End: 12-01-2020 Subsequent hospital visit by physician [facility] Covid19 Pat Screening Schedule [facility] PRE ADMIT Comment on above: Arrived Start: 11-04-2020 End: 11-04-2020 Emergency department patient visit Diego Farr MD Work Phone: [facility] ED Comment on above: Abscess of preauricu lar sinus (Primary Dx) Start: 09-25-2020 End: 09-25-2020 Emergency department patient visit Diego Cruz MD [facility] ED Comment on above: Cyst, dermoid, face (Primary Dx) Start: 09-24-2020 End: 09-24-2020 Emergency department patient visit Diego Farr MD Work Phone: [facility] ED Comment on above: Facial cellulitis (P rimary Dx) Start: 09-20-2020 End: 09-20-2020 Emergency department patient visit Lena Kamila Coulter DO Work Phone: [facility] ED Comment on above: Fall, initial encoun ter (Primary Dx); Midline low back pain without sciatica, unspecified chronicity; Acute pain of right knee; Acute right ankle pain Start: 08-26-2020 End: 08-27-2020 Emergency department patient visit DIEGO FARR [facility] Start: 08-26-2020 End: 08-26-2020 Emergency department patient visit Jatin Kwong MD Work Phone: [facility] ED Comment on above: Abscess (Primary Dx) Start: 08-03-2020 End: 08-03-2020 Emergency department patient visit Meghana Cabral Work Phone: [facility] ED Comment on above: Abscess (Primary Dx) Start: 07-23-2020 End: 07-23-2020 Emergency department patient visit Demetrius Orlando Work Phone: [facility] ED Comment on above: Abscess (Primary Dx) Start: 05-24-2019 End: 05-24-2019 Emergency department patient visit Diego Farr MD Work Phone: [facility] ED Comment on above: Injury of left knee, initial encounter (Primary Dx) Start: 04-02-2019 End: 04-02-2019 Emergency department patient visit Diego Cheek Work Phone: [facility] ED Comment on above: Sprain of right ankl e, unspecified ligament, initial encounter (Primary Dx) Start: 03-02-2019 End: 03-02-2019 Emergency department patient visit Diego Farr [facility] ED Comment on above: Shoulder injury, lef t, initial encounter (Primary Dx) Procedures Date Procedure Procedure Detail Performing Clinician Start: 08-12-2024 Adult depression scr eening assessment Sylvia Rose DO Work Phone: Start: 07-29-2024 Radiologic exam ches t 2 views Edwin Paredes PA-C Work Phone: Start: 07-29-2024 End: 07-29-2024 Iaad ia streptococcus group a Edwin Paredes PA-C Work Phone: Start: 07-29-2024 COVID-19, RAPID Edwin Paredes PA-C Work Phone: Start: 06-23-2024 Radiologic examinati on knee 3 views Meghana Cabral MD Work Phone: Start: 03-21-2024 Adult depression scr eening assessment Sylvia Rose DO Work Phone: Start: 02-08-2024 Adult depression scr eening assessment Sylvia Rose DO Work Phone: Start: 11-26-2023 Urine test visual color cmprsn meths Lena Coulter DO Work Phone: Start: 11-26-2023 Urnls dip stick/tabl et reagent auto microscopy Lena Coulter DO Work Phone: Start: 11-26-2023 Radiologic exam ches t single view Lena Coulter DO Work Phone: Start: 11-26-2023 Basic metabolic pane l calcium total Lena Coulter DO Work Phone: Start: 11-26-2023 MYOGLOBIN, BLOOD Zuhair Coulter DO Work Phone: Start: 11-26-2023 Ecg routine ecg w/le ast 12 lds w/i&r Lena Coulter DO Work Phone: Start: 04-14-2023 Radex wrist complete minimum 3 views Lena Coulter DO Work Phone: Start: 10-23-2022 Radiologic exam knee complete 4/more views Marleni Arnett DO Work Phone: Start: 12-25-2021 End: 12-25-2021 Radex wrist 2 views Padilla Tian MD Start: 12-01-2020 COVID-19, RAPID Nicolas Wilson MD Work Phone: Start: 11-04-2020 Ct orbit sella/post fossa/ear w/contrast matrl Juan R WeiRibbon Work Phone: Start: 11-04-2020 BASIC METABOLIC PANE L W/ REFLEX TO MG FOR LOW K Juan R Paulson [employer] Work Phone: Start: 11-04-2020 Gonadotropin chorion ic qualitative Juan R Paulson [employer] Work Phone: Start: 11-04-2020 Lactate [Moles/volum e] in Serum or Plasma Juan R Paulson [employer] Work Phone: Start: 09-20-2020 End: 09-20-2020 Radex spine lumbosacral 2/3 views Lena Coulter DO Work Phone: Start: 05-24-2019 Radiologic examinati on knee 3 views Samantha Martini PA-C Work Phone: Start: 03-02-2019 Radex scapula complete Samantha Sanzcheson Work Phone: Start: 03-02-2019 Radex shoulder compl ete minimum 2 views Samantha Martini Work Phone: Plan of Treatment Date Care Activity Detail Author Start: 06-17-2029 DTaP,Tdap and Td Vaccines (7 - Td or Tdap) DTaP,Tdap and Td Vaccines (7 - Td or Tdap) [facility] Start: 06-17-2029 DTaP/Tdap/Td vaccine (7 - Td or Tdap) DTaP/Tdap/Td vaccine (7 - Td or Tdap) [facility] Start: 06-17-2029 DTaP/Tdap/Td vaccine (7 - Td) DTaP/Tdap/Td vaccine (7 - Td) [facility] Work Phone: Start: 06-17-2029 Tetanus vaccination Tetanus: Every 1 0yrs [facility] Start: 06-17-2029 Vaccination for diphtheria, pertussis, and tetanus DTAP Vaccines (7 - Td or Tdap) [facility] Start: 08-12-2025 Adult BMI Screening Adult BMI Screen ing [facility] Start: 08-12-2025 Depression Screening Depression Scre [facility] Start: 08-12-2025 Tobacco Screening Tobacco Screening [facility] Start: 07-29-2025 Adult BMI Screening Adult BMI Screen ing [facility] Start: 07-29-2025 Tobacco Screening Tobacco Screening [facility] Start: 03-21-2025 Depression Screening Depression Scre [facility] Start: 03-21-2025 Tobacco Screening Tobacco Screening [facility] Start: 02-07-2025 Adult BMI Screening Adult BMI Screen ing [facility] Start: 02-07-2025 Depression Screening Depression Scre ing [facility] Start: 02-07-2025 Tobacco Screening Tobacco Screening [facility] Start: 12-30-2024 Influenza vaccination Influenza Vacc ine [facility] Start: 08-09-2024 End: 08-09-2024 Patient encounter procedure 08/09/2024 9:45 AM EDT Office Visit [facility] [address] [place] [address] Sylvia Rose, DO [address] [place] [address] [facility] Start: 05-07-2024 End: 05-07-2024 Patient encounter procedure 05/07/2024 2:00 PM EST Office Visit [facility] [address] [place] [address] Sylvia Rose, DO [address] [place] [address] [facility] Start: 04-03-2024 End: 04-03-2024 Patient encounter procedure 04/03/2024 4:15 PM EST [facility] [address] [place], [place] [phone] Marcia Mcmanus, PT [facility] Physical Therapy Comment on above: [facility] Start: 04-01-2024 End: 04-01-2024 Patient encounter procedure 04/01/2024 3:00 PM EST Appointment [facility] [address] [place], [place] [phone] Palak [facility]ixon [facility] Start: 03-27-2024 End: 03-27-2024 Patient encounter procedure 03/27/2024 3:15 PM EST Appointment [facility] [address] [place] [phone] Palak Mixon [facility] Start: 03-27-2024 End: 03-27-2024 Patient encounter procedure 03/27/2024 1:15 PM EST Appointment [facility] [address] [place] [phone] Kenia Boles [facility] Start: 03-25-2024 End: 03-25-2024 Patient encounter procedure 03/25/2024 3:00 PM EST Appointment [facility] [address] [place] [phone] Kenia Boles PTA [facility] Physical Therapy Start: 03-20-2024 End: 03-20-2024 Patient encounter procedure [facility] Start: 03-18-2024 End: 03-18-2024 Patient encounter procedure 03/18/2024 3:30 PM EST Appointment [facility] Physical Therapy [address] [place] [id number] Kenia Boles PTA [facility] Physical Therapy Start: 03-15-2024 End: 03-15-2024 Patient encounter procedure 03/15/2024 8:15 AM EST Appointment [facility] Physical Therapy [address] [place] [id number] Palak Mixon PTA [facility] Physical Therapy Start: 03-15-2024 Subsequent hospital visit by physician 03/15/2024 8:15 AM EST Hospital Encounter [facility] Physical Therapy [address] [place] [phone] Palak Mixon PTA [facility] Physical Therapy Start: 03-14-2024 End: 03-14-2024 Patient encounter procedure 03/14/2024 10:30 AM EST Appointment [facility] Physical Therapy [address] [place] [phone] Palak Mixon PTA [facility] Physical Therapy Start: 12-31-2023 COVID-19 Vaccine ( season) COVID-19 Vaccine ( season) [facility] Start: 12-31-2023 COVID-19 Vaccine ( season) COVID-19 Vaccine ( season) [facility] Start: 12-31-2023 Influenza vaccination Influenza Vacc ine [facility] Start: 11-30-2023 Influenza vaccination B [facility] Start: 12-30-2022 COVID-19 Vaccine ( season) COVID-19 Vaccine ( season) [facility] Start: 11-29-2022 Influenza vaccination B [facility] Start: 2022 Adult BMI Follow Up Plan Adult BMI Follow Up Plan [facility] [employer] [facility] Start: 2022 Hepatitis C screening Hepatitis C sc reen [facility] Start: 06-20-2022 End: 06-20-2022 Follow-up encounter 06/20/2022 Follow-Up Otolaryngology Katie Rashid MD [address] [place] [address] [facility] Start: 06-10-2022 End: 06-10-2022 Admission to same day surgery center 06/10/2022 Surgery Katie Rashid MD [address] [place] [phone] EXCISION MASS HEAD/NECK [facility] Comment on above: EXCISION MASS HEAD/N TIMI Start: 06-10-2022 End: 06-10-2022 EXCISION MASS HEAD/NECK EXCISION MASS HEAD/NECK Congenital preauricular pit Soft tissue infection 06/10/2022 7:20 AM EST [facility] Main OR Start: 06-10-2022 Subsequent hospital visit by physician 06/10/2022 Hospital Encounter [facility] [address] [place] [phone] [facility] Start: 05-27-2022 End: 05-27-2022 Patient encounter procedure 05/27/2022 Office Visit Pre-Admission Testing [facility] Preadmission Testing Start: 03-16-2022 End: 03-16-2022 Patient encounter procedure 03/16/2022 Office Visit Otolaryngology Katie Rashid MD [address] [place] [address] [facility] Start: 12-30-2021 Influenza vaccination B ON [facility] Start: 12-30-2020 Influenza vaccination M [facility] Work Phone: Start: 12-16-2020 End: 12-16-2020 Patient encounter procedure 12/16/2020 Office Visit Otolaryngology Katie Rashid MD [address] [place] [address] [phone] [facility] Start: 11-18-2020 End: 11-18-2020 Patient encounter procedure 11/18/2020 Office Visit Otolaryngology Katie Rashid MD [address] [place] [address] [phone] [facility] Start: 2020 COVID-19 Vaccine (1) COVID-19 Vaccin e (1) [facility] [employer] Phone: Start: 2020 Meningococcal (ACWY) vaccine (1 - 2-dose series) [facility] Start: 2020 Meningococcal B vacc ine (1 of 2 - Standard) Meningococcal B vaccine (1 of 2 - Standard) [facility] Start: 2020 Meningococcus vaccination Meningococcal ACWY Vaccine (2 - 2-dose series) [facility] Start: 2020 Screening for Chlamy lucia trachomatis [facility] Start: 12-31-2019 Influenza vaccination Flu vaccine (# 1) [facility] [employer] Phone: Start: 08-25-2019 HIV screening [facility] Start: 08-25-2019 HPV vaccine (1 - 3-d ose series) HPV vaccine (1 - 3-dose series) [facility] Start: 12-30-2018 Influenza vaccination Flu vaccine (# 1) [place] Start: 2017 Varicella Vaccine (1 of 2 - 13+ 2-dose series) Varicella Vaccine (1 of 2 - 13+ 2-dose series) [place] Start: 2016 COVID-19 Vaccine (1) COVID-19 Vaccin e (1) [facility] Phone: Start: 2016 Depression Screen Depression Screen [facility] Start: 2016 Depression screening using PHQ-9 (Patient Health Questionnaire 9) score Depression Screening (PHQ-2/9) [facility] Start: 08-25-2015 DTaP/Tdap/Td vaccine (6 - Tdap) DTaP/Tdap/Td vaccine (6 - Tdap) [place] Start: 08-25-2015 HPV vaccine (1 - 2-d ose series) HPV vaccine (1 - 2-dose series) [facility] Start: 08-25-2015 HPV vaccine (1 - Fem melly 2-dose series) HPV vaccine (1 - Female 2-dose series) [place] Start: 08-25-2015 Meningococcal (ACWY) Vaccine (1 - 2-dose series) Meningococcal (ACWY) Vaccine (1 - 2-dose series) [place] Start: 08-25-2015 Vaccination for jose n papillomavirus HPV Vaccines (1 - 2-dose series) [facility] Start: 08-25-2011 DTaP/Tdap/Td vaccine (1 - Tdap) DTaP/Tdap/Td vaccine (1 - Tdap) [place] Start: 08-25-2007 History and physical examination, annual for health maintenance Wellness Visit [facility] Start: 2005 Hepatitis A vaccine (1 of 2 - 2-dose series) Hepatitis A vaccine (1 of 2 - 2-dose series) [place] Start: 2005 Measles,Mumps,Rubell a (MMR) vaccine (1 of 2 - Standard series) Measles,Mumps,Rubella (MMR) vaccine (1 of 2 - Standard series) [place] Start: 02-23-2005 COVID-19 Vaccine (#1) COVID-19 Vacci ne (#1) [facility] Start: 2004 Polio vaccine 0-18 ( 1 of 3 - 4-dose series) Polio vaccine 0-18 (1 of 3 - 4-dose series) [place] Start: 2004 Hepatitis B Vaccine (1 of 3 - 3-dose primary series) Hepatitis B Vaccine (1 of 3 - 3-dose primary series) [place] Start: 2004 Screening for Chlamy lucia trachomatis Chlamydia Screening [facility] End: 08-12-2025 Comprehensive metabolic 2000 panel - Serum or Plasma Comprehensive metabolic panel Lab Routine Renal agenesis, unilateral 1 Occurrences starting 08/12/2024 until 08/12/2025 [employer] Phone: Comment on above: 1 Occurrences starti ng 08/12/2024 until 08/12/2025 End: 12-01-2020 COVID-19, Rapid COVID-19, Rapid Microbiology Routine One Time for 1 Occurrences starting 12/01/2020 until 12/01/2020 [email or web address] Phone: Comment on above: One Time for 1 Occur rences starting 12/01/2020 until 12/01/2020 End: 09-25-2020 Culture, Wound Culture, Wound Microbiology Routine One Time for 1 Occurrences starting 09/25/2020 until 09/25/2020 [email or web address] Phone: Comment on above: One Time for 1 Occur rences starting 09/25/2020 until 09/25/2020 Culture, Wound Culture, Wound Microbiology STAT 09/25/2020 1:05 PM EDT [email or web address] Phone: EKG 12 Lead EKG 12 Lead ECG Routine 11/26/2023 7:29 PM EDT [facility] End: 12-15-2023 Extended cardiac holter monitor (3 days-14 day) [employer] Phone: Comment on above: 1 Occurrences starti ng 12/15/2023 until 12/15/2023 End: 08-12-2025 Microalbumin - Albumin: Creatinine Urine Ratio Microalbumin - Albumin: Creatinine Urine Ratio Lab Routine Renal agenesis, unilateral 1 Occurrences starting 08/12/2024 until 08/12/2025 [employer] Comment on above: 1 Occurrences starti ng 08/12/2024 until 08/12/2025 Oxygen therapy [[facility] Data Set] Initiate Oxygen Therapy Protocol Respiratory Care Routine Daily until discontinued starting 12/01/2020 [email or web address] Phone: Comment on above: Daily until disconti nued starting 12/01/2020 End: 04-14-2023 Splint application Splint application Procedures Routine One Time for 1 Occurrences starting 04/14/2023 until 04/14/2023 [employer] [employer] Comment on above: One Time for 1 Occur rences starting 04/14/2023 until 04/14/2023 Surgical Pathology Surgical Path ology Lab Routine Release Upon Ordering for 1 Occurrences starting 12/01/2020 [employer] Work Phone: Comment on above: Release Upon Orderin g for 1 Occurrences starting 12/01/2020 End: 08-12-2025 Thyroid profile includes TSH FT4 Thyroid profile includes TSH FT4 Lab Routine Other fatigue 1 Occurrences starting 08/12/2024 until 08/12/2025 [facility]: 1 Occurrences starti ng 08/12/2024 until 08/12/2025 End: 03-25-2024 XR Hand - left 3 Views [employer] Comment on above: Once for 1 Occurrenc es starting 03/25/2024 until 03/25/2024 Immunizations Immunization Date Immunization Notes Care Provider Iman roman 06-03-2024 influenza virus vacc ine, unspecified formulation Valentina Lambert [facility] [employer] [facility] 06-17-2019 meningococcal oligosaccharide (groups A, C, Y and W-135) diphtheria toxoid conjugate vaccine (MCV4O) Sylviahuber Rose DO Work Phone: [facility] 06-17-2019 tetanus toxoid, redu bryanna diphtheria toxoid, and acellular pertussis vaccine, adsorbed Sylviahuber Rose DO Work Phone: [facility] 06-17-2019 meningococcal vaccin e of unknown formulation and unknown serogroups Lena Coulter DO Work Phone: [employer] Work Phone: 03-30-2010 measles, mumps and rubella virus vaccine Sylvia Rose DO Work Phone: [facility] 03-30-2010 varicella virus vaccine Uriel Rose DO Work Phone: [facility] 02-02-2010 diphtheria, tetanus toxoids and acellular pertussis vaccine Sylvia Rose DO Work Phone: [facility] 02-02-2010 poliovirus vaccine, inactivated Sylvia Rose DO Work Phone: [facility] 08-08-2006 hepatitis A vaccine, pediatric/adolescent dosage, 2 dose schedule Sylvia Rose DO Work Phone: [facility] 05-30-2006 pneumococcal conjuga te vaccine, 7 valent Sylvia Rose DO Work Phone: [facility] 02-07-2006 diphtheria, tetanus toxoids and acellular pertussis vaccine, unspecified formulation Sylvia Rose DO Work Phone: [facility] 02-07-2006 haemophilus influenz ae type b vaccine, conjugate unspecified formulation Sylvia Rose DO Work Phone: [facility] 02-07-2006 hepatitis A vaccine, pediatric/adolescent dosage, 2 dose schedule Sylvia Rose DO Work Phone: [facility] 02-07-2006 measles, mumps and rubella virus vaccine Sylvia Rose DO Work Phone: [facility] 02-07-2006 pneumococcal conjuga te vaccine, 7 valent Sylvia Rose DO Work Phone: [facility] 02-07-2006 varicella virus vaccine Uriel Rose DO Work Phone: [facility] 07-11-2005 haemophilus influenz ae type b vaccine, conjugate unspecified formulation Sylvia Rose DO Work Phone: [facility] 04-26-2005 influenza virus vacc ine, whole virus Sylvia Rose DO Work Phone: [facility] 04-26-2005 influenza virus vacc ine, unspecified formulation Sylvia Rose DO Work Phone: [facility] 02-24-2005 DTaP-hepatitis B and poliovirus vaccine Sylvia Rose DO Work Phone: [facility] 2004 haemophilus influenz ae type b vaccine, conjugate unspecified formulation Sylvia Rose DO Work Phone: [facility] 2004 hepatitis B vaccine, pediatric or pediatric/adolescent dosage Sylvia Rose DO Work Phone: [facility] 2004 DTaP-hepatitis B and poliovirus vaccine Sylvia Rose DO Work Phone: [facility] 2004 pneumococcal conjuga te vaccine, 13 valent Sylvia Rose DO Work Phone: [facility] 2004 haemophilus influenz ae type b vaccine, conjugate unspecified formulation Sylvia Rose DO Work Phone: [facility] 2004 diphtheria, tetanus toxoids and acellular pertussis vaccine, unspecified formulation Sylvia Rose DO Work Phone: [facility] 2004 pneumococcal conjuga te vaccine, 13 valent Sylvia Rose DO Work Phone: [facility] 2004 poliovirus vaccine, unspecified formulation Sylvia Rose DO Work Phone: [facility] 2004 hepatitis B vaccine, pediatric or pediatric/adolescent dosage Sylvia Rose DO Work Phone: [facility] Payers Date Payer Category Payer Medicaid [id number] 2022 Medicaid [id number] 2020 Unknown [employer] [id number] 2020-Present [phone] [address] [place] [address] 2020 Medicaid [id number] 2020 Medicaid [id number] 2020 Unknown ZAY MEZA Narcisa [id number] 2020-Present [phone] [address] [place] [address] [id number]. [id number] 2014 Unknown [employer] xxxxxxxxxxx 2014-Present [phone] [address] [place] [address] xxxxxxxxxxx [id number]. [id number] 2014 Unknown [id number] 1.2.840.276838.1.13.239.2.7.3. [id number] 2004 Unknown [id number] 2.16.840.1.002648.3.579.2.173 2004 Unknown [id number] 2.16.840.1.783347.3.579.2.173 2004 Unknown [id number] 2.16.840.1.646759.3.579.2.173 2004 Unknown [id number] 2.16.840.1.517609.3.579.2.173 2004 Unknown [id number] 2.16.840.1.834741.3.579.2.173 2004 Unknown [id number] 2.16.840.1.465934.3.579.2.173 2004 Unknown [id number] 2.16.840.1.913908.3.579.2.173 2004 Unknown [id number] 2.16.840.1.108677.3.579.2.173 2004 Unknown [id number] 2.16.840.1.028582.3.579.2.173 2004 Unknown [id number] 2.16.840.1.395791.3.579.2.173 2004 Unknown [id number] 2.16.840.1.888339.3.579.2.173 2004 Unknown [id number] 2.16.840.1.445822.3.579.2.173 2004 Unknown [id number] 2.16.840.1.836331.3.579.2.173 2004 Unknown [id number] 2.16.840.1.923272.3.579.2.173 2004 Unknown [id number] 2.16.840.1.827767.3.579.2.173 2004 Unknown [id number] 2.16.840.1.287833.3.579.2.173 2004 Unknown [id number] 2.16.840.1.165705.3.579.2.1286 2004 Unknown [id number] 2.16.840.1.852012.3.579.2.1285 2004 Unknown [id number] 2.16.840.1.729145.3.579.2.1285 2004 Unknown [id number] 2.16.840.1.195605.3.579.2.128 2004 Unknown [id number] 2.16.840.1.513009.3.579.2.1286 1973 Unknown [id number] 2.16.840.1.959378.3.579.2.903 1973 Unknown [id number] 2.16.840.1.067471.3.579.2.903 1973 Unknown [id number] 2.16.840.1.121899.3.579.2.903 1973 Unknown [id number] 2.16.840.1.774811.3.579.2.903 1959 Unknown [id number] 2.16.840.1.260436.3.579.2.175 1959 Unknown [id number] 2.16.840.1.392616.3.579.2.174 1959 Unknown [id number] 2.16.840.1.480050.3.579.2.174 Social History Date Type Detail Facility Start: 04-02-2019 End: 02-08-2024 Tobacco smoking status NHIS Never smoker [employer] Start: 04-02-2019 End: 07-29-2024 Alcohol intake Current [facility] (finding[facility] [place] [place] Start: [facility] Sex Assigned At Not on file [facility] [employer] [place] Start: 07-23-2020 End: 02-08-2024 Tobacco use and exposure Never used [employer] Work Phone: Start: 12-15-2021 End: 06-20-2022 Exposure to SARS-CoV-2 (event) Not sure [email or web address] Phone: Start: 08-18-2018 End: 08-12-2024 Alcohol intake No [facility] Start: 05-17-2022 End: 08-29-2024 Alcohol intake Lifetime non-drinker (finding) [facility] Start: 12-05-2022 End: 08-12-2024 History of Social function [facility] How often to you hav e a drink containing alcohol? Never [facility] How many standard drinks containing alcohol do you have on a typical day? Patient does not drink [facility] Tobacco smoking status NEIS Tobacco smoking consumption unknown [employer] Start: 06-10-2012 End: 12-02-2014 Sex Female (finding) [facility] NEGATED: Highlighted rowStart: DOMINICKF History of tobacco use Passive smoker [facility] Clinical Notes 05-24-2019 to 08-21-2024 Telephone Encounter - Lucille Sanchez - 08/21/2024 4:05 PM EDTTelephone Encounter - Sylvia Rose DO - 08/21/2024 4:05 PM EDTTelephone Encounter - Lucille Sanchez - 08/21/2024 4:05 PM EDT Note Date & Type Note Facility 08-21-2024 Miscellaneous Notes Per Marixa in [place], ProAir is not available any longer and they do have an allergic alert for ventolin for [place] on file so they are asking that you send something different Please have pt call other local pharmacies to find out if they have ProAir in stock and I can send script there. Left message to call office Patient informed and will call tomorrow with pharmacy information [facility] Telephone encounter Note Per Marixa in [place], ProAir is not available any longer and they do have an allergic alert for ventolin for Aline on file so they are asking that you send something different [facility]24 Telephone encounter Note Please have pt call other local pharmacies to find out if they have ProAir in stock and I can send script there. [facility]24 Telephone encounter Note Left message to call office [facility]24 Telephone encounter Note Patient informed and will call tomorrow with pharmacy information [facility] History of Presen t illness Narrative Subjective Patient presents to the office today with her parents for a one week follow-up on Cough. She states that she used to take Pulmicort for her Nebulizer but the Insurance Co denied the PA. Advised they would have to call the insurance company. Patient ID: Aline Booker is a 18 y.o. female. HPI Patient presents for follow-up of upper respiratory infection/asthma exacerbation. Was seen by another provider while I was out of town last week. States she finished the Z-Tin but feels like she still has a sinus infection and needs another antibiotic. Has history of moderate persistent asthma that has been well controlled with Pulmicort nebulizer b.i.d. however insurance refused to cover this recently. States she feels like she needs another antibiotic. Still having chest congestion and feels like it has moved into her sinuses. No fever. Is due for routine screening labs. Has VATER syndrome w/ renal agenesis. Needs labs to monitor renal function yearly. No issues w/ urination. The following portions of the patient's history were reviewed and updated as appropriate: allergies, current medications, past family history, past medical history, past social history, past surgical history, problem list, and medication reconciliation was completed including current medication and post discharge medication. Review of Systems Constitutional: Negative for chills and fever. HENT: Positive for congestion, postnasal drip, sinus pressure and sinus pain. Negative for rhinorrhea. Respiratory: Positive for cough, chest tightness (occasionally) and wheezing (occasionally). Negative for shortness of breath. Gastrointestinal: Negative for diarrhea, nausea and vomiting. All other systems reviewed and are negative. Objective Physical Exam Vitals and nursing note reviewed. Constitutional: General: She is not in acute distress. Appearance: Normal appearance. She is not ill-appearing. HENT: Head: Normocephalic and atraumatic. Right Ear: Tympanic membrane, ear canal and external ear normal. Left Ear: Tympanic membrane, ear canal and external ear normal. Nose: Congestion and rhinorrhea present. Mouth/Throat: Mouth: Mucous membranes are moist. Pharynx: Oropharynx is clear. Eyes: Extraocular Movements: Extraocular movements intact. Conjunctiva/sclera: Conjunctivae normal. Pupils: Pupils are equal, round, and reactive to light. Cardiovascular: Rate and Rhythm: Normal rate and regular rhythm. Heart sounds: Normal heart sounds. Pulmonary: Effort: Pulmonary effort is normal. Breath sounds: Normal breath sounds. Abdominal: General: Bowel sounds are normal. There is no distension. Palpations: Abdomen is soft. Tenderness: There is no abdominal tenderness. There is no guarding. Musculoskeletal: Cervical back: Neck supple. Skin: General: Skin is warm and dry. Neurological: General: No focal deficit present. Mental Status: She is alert and oriented to person, place, and time. Psychiatric: Mood and Affect: Mood normal. Behavior: Behavior normal. Assessment/Plan Aline was seen today for follow up of asthma/bronchitis. Patient states she feels she is under antibiotic and feels like it is now turned into sinus infection. START doxycycline. I will resend Pulmicort nebs with updated diagnosis code. Another prescription for albuterol ProAir PARM[facility]ER sent to pharmacy. Labs ordered. Follow up 1 week or sooner if needed. Patient agreeable with plan. Diagnoses and all orders for this visit: Moderate persistent asthma without complication - budesonide (PULMICORT) 0.25 mg/2 mL nebulizer solution; Inhale 2 mL (0.25 mg total) by nebulization in the morning and 2 mL (0.25 mg total) before bedtime. - PROAIR HFA 90 mcg/actuation inhaler; Inhale 2 puffs every 4 (four) hours as needed for wheezing or shortness of breath. Bronchitis - doxycycline (VIBRAMYCIN) 100 mg capsule; Take 1 capsule (100 mg total) by mouth in the morning and 1 capsule (100 mg total) before bedtime. Do all this for 7 days. Renal agenesis, unilateral - Comprehensive metabolic panel; Future - Microalbumin - Albumin: Creatinine Urine Ratio; Future Other fatigue - Thyroid profile includes TSH FT4; Future [facility] Miscellaneous Notes Aline was in to see you on Monday per her Grandmother and needs medication for her nebulizer, she says she uses albuterol and pulmicort in the nebulizer but they are not on the medication list. She uses [facility] in [place]. She has a cough, can barely breath and has a low grade fever and also is asking if you could send an antibiotic for her Please use this reference when calling patient back documented in this encounter [facility] 07-31-2024 Telephone encounter Note Aline was in to see you on Monday per her Grandmother and needs medication for her nebulizer, she says she uses albuterol and pulmicort in the nebulizer but they are not on the medication list. She uses [facility] in [place]. She has a cough, can barely breath and has a low grade fever and also is asking if you could send an antibiotic for her [facility] 07-31-2024 Telephone encounter Note Please use this reference when calling patient back [facility] 07-31-2024 Miscellaneous Notes Patient is calling in stating that her symptoms are getting worse and the medications are not helping. She was to call in if not better. What has worsened? Is she having a fever? Cough more productive? Wheezing? Is she using her Pulmicort inhaler twice a day? How often is she using her proair inhaler? She has a fever 99.8, she is wheezing, non-productive cough,. She is using pulmicort twice daily and proair every 4-6 hours. Spoke with patient. She states that she has a nebulizer machine from years ago. She does not have Albuterol or Pulmicort solution. Sent albuterol nebulizer solution, prednisone, and azithromycin to pharmacy. She needs to continue to use pulmicort inhaler BID routinely. She needs to make an appt next week to see Dr. Rose for follow up and specialist referrals Patient informed. Appointment made. Aline says she really gets better results when she uses the pulmicort solution in her nebulizer and is asking if you will send that to the pharmacy I sent the nebulizer solution and she needs to stop pulmicort inhaler while she is doing the nebulizer. She also can only do the pulmicort nebulizer twice a day Addended by: ALEJANDRA CORONEL on: 07/31/2024 02:58 PM Modules accepted: Orders documented in this encounter [facility] 07-31-2024 Note Addended by: ALEJANDRA CORONEL on: 07/31/2024 02:58 PM Modules accepted: Orders [facility] 07-31-2024 Telephone encounter Note Patient is calling in stating that her symptoms are getting worse and the medications are not helping. She was to call in if not better. [facility] 07-31-2024 Telephone encounter Note What has worsened? Is she having a fever? Cough more productive? Wheezing? Is she using her Pulmicort inhaler twice a day? How often is she using her proair inhaler? [facility] 07-31-2024 Telephone encounter Note She has a fever 99.8, she is wheezing, non-productive cough,. She is using pulmicort twice daily and proair every 4-6 hours. [facility] 07-31-2024 Telephone encounter Note Spoke with patient. She states that she has a nebulizer machine from years ago. She does not have Albuterol or Pulmicort solution. [facility] 07-31-2024 Telephone encounter Note Sent albuterol nebulizer solution, prednisone, and azithromycin to pharmacy. She needs to continue to use pulmicort inhaler BID routinely. She needs to make an appt next week to see Dr. Rose for follow up and specialist referrals [facility] 07-31-2024 Telephone encounter Note Patient informed. Appointment made. [facility] 07-31-2024 Telephone encounter Note Aline says she really gets better results when she uses the pulmicort solution in her nebulizer and is asking if you will send that to the pharmacy [facility] 07-31-2024 Telephone encounter Note I sent the nebulizer solution and she needs to stop pulmicort inhaler while she is doing the nebulizer. She also can only do the pulmicort nebulizer twice a day [facility] 07-29-2024 Hospital Discharg e instructions Edwin Paredes II, PA-C - 07/29/2024 2:34 PM EDT You will receive a survey in the next couple days regarding your experience in the ED. We are constantly striving to improve our care and welcome your feedback. Thank you very much for your time. The emergency department evaluation is not a complete evaluation, you're always required to followup with another doctor within the next few days to assess how your symptoms are progressing and to ensure that there is no indication for further testing or returning to the hospital. Even with treatment sometimes your condition worsens and you will need to return to the hospital. If you are having pain and it is getting worse you should return to the hospital. If you have any new symptoms that were not addressed at your original visit you should return to the hospital. If you're having difficulty breathing but it is getting worse you should return to the hospital. If you're vomiting and cannot take the medicines that were prescribed you should return to the hospital. If you're having persistent fevers you should return to the hospital. If you have any question of whether or not your symptoms are serious enough or for any other urgent concerns- always return to the hospital for repeat evaluation. The following attachments cannot be sent through Care Everywhere.URI (Upper Respiratory Infection): Viral (Mongolian)documented in this encounter [facility] 07-29-2024 History of Presen t illness Narrative Subjective Patient ID: Aline Booker is a 18 y.o. female is here today due to coughing. Patient says that she has been coughing started today. Congestion and sinus pressure, she says that her chest hurts to breath. Born 2 months early and is prone to pneumonia easily. Nasal Congestion This is a new problem. The current episode started in the past 7 days. The problem has been gradually worsening since onset. There has been no fever. Associated symptoms include congestion, coughing (started this morning and is nonproductive), ear pain (posteriorly bilaterally and ears feel plugged), sinus pressure and a sore throat (mild on but worsened Monday after she sent the night in a house with cats). Pertinent negatives include no headaches. Treatments tried: tok claritin for 2 days and flonase for 2 days without relief. she took tylenol last night. The following portions of the patient's history were reviewed and updated as appropriate: allergies, current medications, past medical history, past social history, past surgical history, problem list, and medication reconciliation was completed including current medication and post discharge medication. Review of Systems Constitutional: Negative for appetite change and fever. HENT: Positive for congestion, ear pain (posteriorly bilaterally and ears feel plugged), sinus pressure and sore throat (mild on but worsened Monday after she sent the night in a house with cats). Respiratory: Positive for cough (started this morning and is nonproductive) and wheezing (this morning). Took pulmicort on Monday and did not notice any change to her congestion but never felt she needed her ventolin inhaler. Gastrointestinal: Positive for nausea (very mild). Negative for abdominal pain and diarrhea. Skin: Negative for rash. Neurological: Negative for dizziness and headaches. Psychiatric/Behavioral: Negative for sleep disturbance. Current Outpatient Medications on File Prior to Visit Medication Sig Dispense Refill budesonide (PULMICORT) 90 mcg/actuation inhaler Inhale 2 puffs in the morning and 2 puffs before bedtime. CHILDREN'S IBUPROFEN ORAL Take 0.5 tablets by mouth. fluticasone propionate (FLONASE ALLERGY RELIEF) 50 mcg/actuation nasal spray Administer 1 spray into each nostril in the morning. loratadine (CLARITIN) 10 mg tablet Take 1 tablet (10 mg total) by mouth. polyethylene glycol (GLYCOLAX) 17 gram packet Take 17 g by mouth daily as needed. No current facility-administered medications on file prior to visit. Objective BP 110/80 (BP Site: Left Arm, BP Postition: Sitting) Pulse 96 Temp 36.6 C (97.9 F) (Tympanic) Ht 149.9 cm (4' 11 ) Wt 77.1 kg (170 lb) SpO2 98% Comment: RA BMI 34.34 kg/m Physical Exam Vitals reviewed. Constitutional: Appearance: Normal appearance. HENT: Head: Normocephalic and atraumatic. Right Ear: Tympanic membrane, ear canal and external ear normal. Left Ear: Tympanic membrane, ear canal and external ear normal. Nose: Nose normal. Mouth/Throat: Mouth: Mucous membranes are moist. Pharynx: No posterior oropharyngeal erythema. Cardiovascular: Rate and Rhythm: Normal rate and regular rhythm. Heart sounds: No murmur heard. Pulmonary: Effort: Pulmonary effort is normal. No respiratory distress. Breath sounds: Normal breath sounds. No wheezing. Musculoskeletal: General: Deformity (thoracic spine scoliosis) present. Cervical back: Neck supple. Lymphadenopathy: Cervical: No cervical adenopathy. Neurological: Mental Status: She is alert. Gait: Gait normal. Psychiatric: Mood and Affect: Mood normal. Behavior: Behavior normal. Thought Content: Thought content normal. Judgment: Judgment normal. Assessment/Plan Aline was seen today for cough. Diagnoses and all orders for this visit: Mild intermittent asthma without complication - levocetirizine (XYZAL) 5 mg tablet; Take 1 tablet (5 mg total) by mouth nightly. - albuterol (PROAIR HFA) 90 mcg/actuation inhaler; Inhale 2 puffs every 6 (six) hours as needed for wheezing. Discussed this is likely secondary to seasonal allergies and cat allergy Advised patient to resume pulmicort inhaler BID consistently for 1 wk to help with symptoms and use proair inhaler prn VATER syndrome Advised patient to contact primary provider to discuss referrals to specialists to follow up on her chronic conditions [facility] Dis[facility] instructions Anastasia Baldwin PA-C - 06/23/2024 6:57 PM EST Elevate, ice, and rest. Use Tylenol and Motrin as needed. The following attachments cannot be sent through Care Everywhere.Contusion (Mongolian)documented in this encounter [facility] 04-18-2024 History of Presen t illness Narrative Subjective Patient ID: Aline Booker is a 18 y.o. female that presents for congestion, sore throat, and cough that started Monday. She has been taking children's tylenol. She denies any fever. HPI Pt presents for URI symptoms x 3 days. C/o cough, congestion, runny nose, sore throat. No fever, chills, SOB, wheezing, nvd. She is predisposed to getting pneumonia so her grandmother brought her in right away. She says she can't swallow pills and needs liquid. The following portions of the patient's history were reviewed and updated as appropriate: allergies, current medications, past family history, past medical history, past social history, past surgical history, problem list, and medication reconciliation was completed including current medication and post discharge medication. Review of Systems Constitutional: Negative for chills and fever. HENT: Positive for congestion, postnasal drip, rhinorrhea and sore throat. Respiratory: Positive for cough. Negative for shortness of breath and wheezing. Gastrointestinal: Negative for diarrhea, nausea and vomiting. All other systems reviewed and are negative. Objective Physical Exam Vitals and nursing note reviewed. Constitutional: General: She is not in acute distress. Appearance: Normal appearance. She is not ill-appearing. HENT: Head: Normocephalic and atraumatic. Right Ear: Tympanic membrane, ear canal and external ear normal. Left Ear: Tympanic membrane, ear canal and external ear normal. Nose: Congestion and rhinorrhea present. Mouth/Throat: Mouth: Mucous membranes are moist. Pharynx: Oropharynx is clear. No oropharyngeal exudate or posterior oropharyngeal erythema. Eyes: Extraocular Movements: Extraocular movements intact. Conjunctiva/sclera: Conjunctivae normal. Pupils: Pupils are equal, round, and reactive to light. Cardiovascular: Rate and Rhythm: Normal rate and regular rhythm. Heart sounds: Normal heart sounds. Pulmonary: Effort: Pulmonary effort is normal. Breath sounds: Normal breath sounds. Musculoskeletal: Cervical back: Neck supple. Skin: General: Skin is warm and dry. Neurological: General: No focal deficit present. Mental Status: She is alert and oriented to person, place, and time. Psychiatric: Mood and Affect: Mood normal. Behavior: Behavior normal. Assessment/Plan Aline was seen today for sore throat, cough and nasal congestion. Will treat with azithromycin to hopefully prevent this from progressing. Continue supportive care. Return precautions given. Pt and grandmother agreeable w/ plan. Diagnoses and all orders for this visit: Bronchitis - azithromycin (ZITHROMAX) 200 mg/5 mL suspension; Take 19.7 mL (788 mg total) by mouth in the morning for 5 days. Give 788 mg (19.7 ml) by mouth first day then 392 mg (9.8 ml) by mouth daily x 4 days. SYLVIA ROSE DO 04/18/24 1:16 PM [facility] History of Presen t illness Narrative [facility] Outpatient Physical Therapy Daily Note Patient: Aline Booker : 2005 CSN #: [id number] Referring Physician: Yunior Ferrari,* Date: 04/01/2024 Diagnosis: M76.51 Patellar tendinitis, right knee Treatment Diagnosis: R knee pain. Onset Date: 12/05/23 PT Insurance Information: [facility] [place] medicaid Total # of Visits Approved: 8 Per Physician Order Total # of Visits to Date: 7 No Show: 0 Canceled Appointment: 1 04/05/24 Plan of Care/Recert Due Pre-Treatment Pain: 05/10 Subjective: Pt reports 1/10 pain today. She goes to see knee doctor on Monday Exercises: Exercise 5: Star trac SL R knee ext/flexion iso 30s hold x10 ea, Star trac HS curl 25# x10 R LE Exercise 7: B hip abduction and extension OTB x15, monster laps 2x BTB, side stepping at counter BTB x2 laps Exercise 11: Squat hover 8# ball 3 x20 (not today), SL squat with assist on chair x10, Deadlift SL x10 5# Exercise 12: 3 step RLE heel taps x10 Exercise 13: Supine: bridges x10, SL bridges x10 ea Modality: CP to R knee following tx to reduce soreness x10 min Assessment Assessment: Continued to progress quad strengthening ther ex this date focusing on eccentric control with pt tolerating well. No reports of increased pain throughout. Will continue Activity Tolerance Activity Tolerance: Patient tolerated treatment well Patient Education Patient Education: HEP, exercise technique and neutral joint alignment Pt verbalized/demonstrated good understanding: [x] Yes [] No, pt required further clarification. Post Treatment Pain: 05/10 Plan Plan Frequency: 2 Plan weeks: 4 Goals (Total # of Visits to Date: 7) Short Term Goals Time Frame for Short Term Goals: 2 weeks Short Term Goal 1: Pt will be inititated with HEP. -MET Short Term Goal 2: Pt will tolerate 30-40 minutes of ther ex to improve function with ADL's. -MET Senior Care Goals Time Frame for Wedding Makeup Artist Goals : 6 weeks Wedding Makeup Artist Goal 1: Pt will independant and compliant with HEP to maintain functional gains made at therapy. Wedding Makeup Artist Goal 2: Pt will report 0/10 R knee pain on average to facilitate completion of ADL's. Senior Care Goal 3: Pt to improve R knee flexion to 4+/5 w/o pain for ease with ambulation. Wedding Makeup Artist Goal 4: Pt to tolerate 10 x 45s R knee isometric holds to display improved patellar tendon strength. Wedding Makeup Artist Goal 5: Pt to improve self report impiarment from 50% to 10% or less for increased QOL. Minutes Tracking: Time In: 1500 Time Out: 1550 Minutes: 50 Timed Code Treatment Minutes: 40 Minutes Palak Mixon PTA Date: 04/01/2024 documented in this encounter [facility] 03-25-2024 Hospital Discharg e instructions Anastasia Baldwin PA-C - 03/25/2024 5:48 PM EST Use Tylenol, Motrin, elevate, and ice. Your x-ray shows no broken bones. The following attachments cannot be sent through Care Everywhere.Bites: Animal (Mongolian)documented in this encounter [facility] 03-21-2024 History of Presen t illness Narrative Subjective Patient ID: Aline Booker is a 18 y.o. female who presents today for an ADHD/anxiety consult. Patient states she has trouble focusing and can not concentrate a lot of the time. She feels anxiety a lot. HPI Has had issues with focusing and completing tasks since she was a child. Never formally diagnosed w/ ADHD but she and her father both feel she has had ADHD since a young age. Is currently in college. Struggling w/ classes and failing chemistry. The following portions of the patient's history were reviewed and updated as appropriate: allergies, current medications, past family history, past medical history, past social history, past surgical history, problem list, and medication reconciliation was completed including current medication and post discharge medication. Review of Systems Constitutional: Negative for chills and fever. HENT: Negative for congestion and rhinorrhea. Respiratory: Negative for cough and shortness of breath. Gastrointestinal: Negative for diarrhea, nausea and vomiting. All other systems reviewed and are negative. Objective Physical Exam Vitals and nursing note reviewed. Constitutional: General: She is not in acute distress. Appearance: Normal appearance. She is not ill-appearing. HENT: Head: Normocephalic and atraumatic. Right Ear: External ear normal. Left Ear: External ear normal. Eyes: Extraocular Movements: Extraocular movements intact. Conjunctiva/sclera: Conjunctivae normal. Pupils: Pupils are equal, round, and reactive to light. Cardiovascular: Rate and Rhythm: Normal rate and regular rhythm. Heart sounds: Normal heart sounds. Pulmonary: Effort: Pulmonary effort is normal. Breath sounds: Normal breath sounds. Musculoskeletal: Cervical back: Neck supple. Skin: General: Skin is warm and dry. Neurological: General: No focal deficit present. Mental Status: She is alert and oriented to person, place, and time. Psychiatric: Mood and Affect: Mood normal. Behavior: Behavior normal. Assessment/Plan Aline was seen today for anxiety and adhd. Diagnoses and all orders for this visit: Attention deficit hyperactivity disorder (ADHD), predominantly inattentive type - atomoxetine (STRATTERA) 25 mg capsule; Take 1 capsule (25 mg total) by mouth in the morning. documented in this encounter [facility] 03-20-2024 History of Presen t illness Narrative [facility] Outpatient Physical Therapy Daily Note Patient: Aline Booker : 2005 CSN #: [id number] Referring Physician: Yunior Ferrari,* Date: 03/20/2024 Diagnosis: M76.51 Patellar tendinitis, right knee Treatment Diagnosis: R knee pain. Onset Date: 12/05/23 PT Insurance Information: [facility] [place] medicaid Total # of Visits Approved: 8 Per Physician Order Total # of Visits to Date: 4 No Show: 0 Canceled Appointment: 1 04/05/24 Plan of Care/Recert Due Pre-Treatment Pain: 5/10 Subjective: Pt with increased R knee pain today mostly d/t rain and cold. Pain is 5/10. Exercises: Exercise 3: squat holds DL 3 x 30s SL 3 x 30s Exercise 5: Star trac SL R knee ext iso 30s hold x7, Star trac HS curl 20# x10 R LE Exercise 6: Partial staggered wall squat 3 x 30 Exercise 8: R quad stretch at steps 2x60 Exercise 9: SCI FIT lvl 2 x 10 min Exercise 10: 4 inch heel tap 2 x 10 Assessment Assessment: Progressed R knee isometrics today to 7 x 30s holds on startrac knee ext with no repors of increased pain. Progressed to staggered partial wall sit and added 4inch heel tap with good tolerance. Pt requries mod verbal cueing to prevent valgus of R knee with total gym squat holds and with heel taps. Will continue to progress. Activity Tolerance Activity Tolerance: Patient tolerated treatment well Patient Education Patient Education: HEP, exercise technique and neutral joint alignment Pt verbalized/demonstrated good understanding: [x] Yes [] No, pt required further clarification. Post Treatment Pain: 3/10 Plan Plan Frequency: 2 Plan weeks: 4 Goals (Total # of Visits to Date: 4) Short Term Goals Time Frame for Short Term Goals: 2 weeks Short Term Goal 1: Pt will be inititated with HEP. -MET Short Term Goal 2: Pt will tolerate 30-40 minutes of ther ex to improve function with ADL's. -MET Senior Care Goals Time Frame for Senior Care Goals : 6 weeks Senior Care Goal 1: Pt will independant and compliant with HEP to maintain functional gains made at therapy. Senior Care Goal 2: Pt will report 0/10 R knee pain on average to facilitate completion of ADL's. Wedding Makeup Artist Goal 3: Pt to improve R knee flexion to 4+/5 w/o pain for ease with ambulation. Wedding Makeup Artist Goal 4: Pt to tolerate 10 x 45s R knee isometric holds to display improved patellar tendon strength. Wedding Makeup Artist Goal 5: Pt to improve self report impiarment from 50% to 10% or less for increased QOL. Minutes Tracking: Time In: 1500 Time Out: 1542 Minutes: 42 Timed Code Treatment Minutes: 40 Minutes MARCIA MCMANUS PT, DPT Date: 03/20/2024 documented in this encounter [facility] 03-15-2024 History of Presen t illness Narrative [facility] Inpatient/Observation/Outpatien t Rehabilitation Date: 03/15/2024 Patient Name: Aline Booker [x] Outpatient : 2005 04/05/24 Plan of Care/Recert ends [x] Pt cancelled due to: [x] Sick/ill Therapist/Oil Well Shooter will attempt to see this patient, at our earliest opportunity. Palak Mixon, E COMMERCE MANAGER Date: 03/15/2024 documented in this encounter [facility] 03-08-2024 History of Presen t illness Narrative [facility] Outpatient Physical Therapy Evaluation Date: 03/08/2024 Patient: Aline Booker : 2005 CSN #: [id number] Referring Physician: Yunior Ferrari,* Medical Diagnosis: M76.51 Patellar tendinitis, right knee Treatment Diagnosis: R knee pain. Onset Date: 12/05/23 PT Insurance Information: [facility] [place] medicaid Total # of Visits Approved: 8 Total # of Visits to Date: 1 No Show: 0 Canceled Appointment: 0 [x] This mortgage or loan underwriter acknowledges review of patient history form Subjective Subjective: Pt reports falling in november onto her R knee and has been having knee pain since. Pain is 5/10 at worst and 0/10 at best. Additional Pertinent Hx: visual issues, kidneye problems, asthma Objective AROM General AROM LE: Right WNL, Left WNL Right AROM General AROM LE: Right WNL, Left WNL Strength Strength LLE L Hip Flexion: 4-/5 L Hip ABduction: 4+/5 L Hip ADduction: 4+/5 L Knee Flexion: 4/5 L Knee Extension: 4/5 Right Strength Strength RLE R Hip Flexion: 4-/5 R Hip ABduction: 4+/5 R Hip ADduction: 4+/5 R Knee Flexion: 4+/5 R Knee Extension: (painful) Exercises: Exercise 1: HEP: BTB knee ext iso, partial wall sit, standing quad stretch Exercise 2: * begin knee ext iso on startrac (20s hold x 4-5) should be progressing to 10 x 45s holds * any quad isometric strength such as wall sits, squat holds (DL/SL) on total gym, stay away from full squats for now, can do hip strength per tolerance Functional Outcome Measures Pt self report impairment: 50% Assessment Body Structures, Functions, Activity Limitations Requiring Skilled Therapeutic Intervention: Decreased functional mobility , Decreased strength, Increased pain Assessment: Pt is a 18 y.o. female who presents to therapy with symptoms of patellar tendinitis. Upon exam pt demos decreaed R knee strength into ext with pain at 4-/5 compared to L. TTP to patellar tendon at inferior pole of patella. Pt with increased pain at work when standing in place for too long with knees locked out. History of low back pain, scoliosis and congenital hip displasia create some malalignment of B LE's in standing but is comfortable for pt to stand that way. Pt would benefit from skilled therapy in order to address these deficits and return to PLOF. Therapy Prognosis: Good Decision Making: Low Complexity Patient Education Patient Education: Pt educatated on PT POC, HEP Pt verbalized/demonstrated good understanding: [X] Yes [] No, pt required further clarification. Goals Short Term Goals Time Frame for Short Term Goals: 2 weeks Short Term Goal 1: Pt will be inititated with HEP. Short Term Goal 2: Pt will tolerate 30-40 minutes of ther ex to improve function with ADL's. Senior Care Goals Time Frame for Wedding Makeup Artist Goals : 6 weeks Wedding Makeup Artist Goal 1: Pt will independant and compliant with HEP to maintain functional gains made at therapy. Wedding Makeup Artist Goal 2: Pt will report 0/10 R knee pain on average to facilitate completion of ADL's. Wedding Makeup Artist Goal 3: Pt to improve R knee flexion to 4+/5 w/o pain for ease with ambulation. Wedding Makeup Artist Goal 4: Pt to tolerate 10 x 45s R knee isometric holds to display improved patellar tendon strength. Wedding Makeup Artist Goal 5: Pt to improve self report impiarment from 50% to 10% or less for increased QOL. Minutes Tracking: Time In: 1245 Time Out: 1325 Minutes: 40 Timed Code Treatment Minutes: 38 Minutes MARCIA MCMANUS PT, DPT 03/08/2024 [facility] Outpatient Physical Therapy Date: 03/08/2024 Patient: Aline Booker : 2005 CSN #: [id number] Referring Physician: Yunior Ferrari,* [x] Plan of Care [] Updated Plan of Care Dates of Service to Include: 03/08/2024 to 04/05/24 Diagnosis: M76.51 Patellar tendinitis, right knee Rehab (Treatment) Diagnosis: R knee pain. Onset Date: 12/05/23 Attendance Total # of Visits to Date: 1 No Show: 0 Canceled Appointment: 0 Assessment Body Structures, Functions, Activity Limitations Requiring Skilled Therapeutic Intervention: Decreased functional mobility , Decreased strength, Increased pain Assessment: Pt is a 18 y.o. female who presents to therapy with symptoms of patellar tendinitis. Upon exam pt demos decreaed R knee strength into ext with pain at 4-/5 compared to L. TTP to patellar tendon at inferior pole of patella. Pt with increased pain at work when standing in place for too long with knees locked out. History of low back pain, scoliosis and congenital hip displasia create some malalignment of B LE's in standing but is comfortable for pt to stand that way. Pt would benefit from skilled therapy in order to address these deficits and return to PLOF. Goals Short Term Goals Time Frame for Short Term Goals: 2 weeks Short Term Goal 1: Pt will be inititated with HEP. Short Term Goal 2: Pt will tolerate 30-40 minutes of ther ex to improve function with ADL's. Senior Care Goals Time Frame for Wedding Makeup Artist Goals : 6 weeks Senior Care Goal 1: Pt will independant and compliant with HEP to maintain functional gains made at therapy. Senior Care Goal 2: Pt will report 0/10 R knee pain on average to facilitate completion of ADL's. Wedding Makeup Artist Goal 3: Pt to improve R knee flexion to 4+/5 w/o pain for ease with ambulation. Senior Care Goal 4: Pt to tolerate 10 x 45s R knee isometric holds to display improved patellar tendon strength. Wedding Makeup Artist Goal 5: Pt to improve self report impiarment from 50% to 10% or less for increased QOL. Prognosis Therapy Prognosis: Good Treatment Plan Plan Frequency: 2 Plan weeks: 4 [x] HP/CP [x] Electrical Stim [x] Therapeutic Exercise [] Gait Training [] Aquatics [] Ultrasound [x] Patient Education/HEP [x] Manual Therapy [] Traction [x] Neuro-edgard [x] Soft Tissue Mobs [x] Therapeutic Activity [] Iontophoresis [] Orthotic casting/fitting [] Dry Needling [] Blood Flow Restriction [x] Vasopneumatic Compression Electronically signed by: MARCIA MCMANUS PT, DPT Date: 03/08/2024 Date: 03/08/2024 Physician Signature documented in this encounter [facility] 02-08-2024 History of Presen t illness Narrative Subjective Patient ID: Aline Booker is a 18 y.o. female who presents today to establish care. She is accompanied by her mother HPI Pt presents to count includes the [facility] care. PMH significant for VATER syndrome, asthma and scoliosis. Says asthma remains controlled and only uses Pulmicort inhaler when she gets sick. Also has albuterol which she does not need regularly. 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 Needs yearly blood work to monitor renal function. Is not due for this for another year. 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 The following portions of the patient's history were reviewed and updated as appropriate: allergies, current medications, past family history, past medical history, past social history, past surgical history, problem list, and medication reconciliation was completed including current medication and post discharge medication. Review of Systems Constitutional: Negative for chills and fever. HENT: Negative for congestion and rhinorrhea. Respiratory: Negative for cough and shortness of breath. Cardiovascular: Negative for chest pain. Gastrointestinal: Negative for diarrhea, nausea and vomiting. All other systems reviewed and are negative. Objective Physical Exam Vitals and nursing note reviewed. Constitutional: General: She is not in acute distress. Appearance: Normal appearance. She is not ill-appearing. HENT: Head: Normocephalic and atraumatic. Right Ear: External ear normal. Left Ear: External ear normal. Nose: Nose normal. Mouth/Throat: Mouth: Mucous membranes are moist. Eyes: Extraocular Movements: Extraocular movements intact. Conjunctiva/sclera: Conjunctivae normal. Pupils: Pupils are equal, round, and reactive to light. Cardiovascular: Rate and Rhythm: Normal rate and regular rhythm. Heart sounds: Normal heart sounds. Pulmonary: Effort: Pulmonary effort is normal. Breath sounds: Normal breath sounds. Musculoskeletal: Cervical back: Neck supple. Skin: General: Skin is warm and dry. Neurological: General: No focal deficit present. Mental Status: She is alert and oriented to person, place, and time. Psychiatric: Mood and Affect: Mood normal. Behavior: Behavior normal. Assessment/Plan Aline was seen today for count includes the [facility] care. Past medical history reviewed in chart updated. She is up-to-date on routine screening labs. Asthma remains controlled. She will follow-up with me in 1 year for next annual wellness visit. Patient and mother agreeable plan. Diagnoses and all orders for this visit: Routine adult health maintenance VATER syndrome Renal agenesis, unilateral Mild intermittent asthma without complication SYLVIA ROSE DO This note is dictated with the use of M*Modal. Please note that this dictation was completed with computer voice recognition software. Quite often unanticipated grammatical, syntax, homophones, and other interpretive errors are inadvertently transcribed by the computer software. Please disregard these errors and excuse any errors that have escaped final proofreading. documented in this encounter [facility] [employer] [facility] 12-16-2023 [facility] Discharg e instructions Chris Workman MD - 12/16/2023 6:03 PM EDT Please use Benadryl cream for itchiness. Please contact Dr. Begum on Monday if you do not want to keep monitor. Symptoms worsen you may take Benadryl prior to bed. The following attachments cannot be sent through Care Everywhere.Allergic Reaction (Mongolian)documented in this encounter [facility] 11-26-2023 [facility] Discharg e instructions eLna Coulter DO - 11/26/2023 10:01 PM EDT Please follow-up with sugar sampler, increase your water intake, return to ER for worsening chest pain shortness of breath or difficulty breathing. documented in this encounter [facility] 04-14-2023 [facility] Discharg e instructions Anastasia Baldwin PA-C - 04/14/2023 4:47 PM EST Wear the splint on your wrist. Elevate, ice, and rest. Use tylenol and motrin. Follow-up at [facility] for reevaluation of your wrist injury. documented in this encounter [facility] 10-23-2022 Hospital Discharg e instructions Nicola Gasca PA-C - 10/23/2022 3:18 PM EDT Follow-up with orthopedic doctor. Follow RICE instructions take Tylenol as directed for discomfort. Promptly return to emergency department for new, changing, worsening of symptoms or other concerns. The following attachments cannot be sent through Care Everywhere.Knee Sprain (Mongolian)RICE: Rest - Ice - Compression - Elevation: Video (Mongolian)documented in this encounter [facility] 06-20-2022 History of Presen t illness Narrative [facility] [address] [facility] [place] [address] [facility] [id number] Dept: [phone] Katie Rashid MD [facility] 16 y.o. female Patient presents with a chief complaint of preauricular pit excision (Post op) Ht 4' 11 Wt 72.6 kg (160 lb) BMI 32.32 kg/m History of Presenting Illness: The patient/caregiver reports a history of complaint with the following features: She reports her left ear wound is healing well without pain or discharge. Review of systems covering 10 systems is reviewed and pertinent positives and negatives are noted as above. Past Medical History: Diagnosis Date Asthma Kidney congenitally absent, right Scoliosis Current Outpatient Medications: albuterol 90 mcg/actuation inhaler, Inhale 2 (two) puffs every 6 (six) hours as needed ., Disp: , Rfl: budesonide (PULMICORT) 0.5 mg/2 mL nebulizer solution, 2 mL (0.5 mg total) 2 (two) times a day ., Disp: , Rfl: fluticasone propionate (FLONASE) 50 mcg/actuation nasal spray, 1 (one) spray every night at bedtime ., Disp: , Rfl: loratadine (CLARITIN) 10 mg tablet, Take 1 (one) tablet (10 mg total) by mouth daily as needed for allergies ., Disp: , Rfl: montelukast (Singulair) 5 MG chewable tablet, , Disp: , Rfl: Allergies Allergen Reactions Tylenol [Acetaminophen] Dizziness only Adult dose patient takes trev strength Tylenol Past Surgical History: Procedure Laterality Date EXCISION LESION HEAD/NECK Left 06/10/2022 Procedure: EXCISON OF PREAURICULAR PIT, LEFT; Surgeon: Katie Rashid MD; Location: Main OR; Service: Otolaryngology excision of perauricular pit Right 2020 HERNIA REPAIR INGUINAL LAPAROSCOPIC Left 5 years old perforated anus 3 months old right dislocated hip Right 6 months old URETERAL REIMPLANTATION PEDIATRICS Left 1 year old Social History Socioeconomic History Marital status: Single Tobacco Use Smoking status: Never Passive exposure: Never Smokeless tobacco: Never Substance and Sexual Activity Alcohol use: Never Drug use: Never History reviewed. No pertinent family history. PHYSICAL EXAM: The patient was examined today 06/20/2022 with findings as follows: CONSTITUTIONAL: General Appearance: well-appearing, nontoxic, alert, no acute distress Communication: normal voicing, hearing intact to spoken voice HEAD/FACE: Head: atraumatic, normocephalic, no lesions Facial Inspection: no lesions, healthy skin Facial Strength: motor strength normal, symmetric strength, symmetric movement EYES: Pupils: PERRLA, extra-ocular movements intact, no nystagmus, sclera white, no redness of eyes, no watering of eyes EARS: Bilateral External Ears: no pits, no tags Right External Ear: normally formed, no lesions, no mastoid tenderness Left External Ear: healing excision site, suture removed, normally formed, no lesions, no mastoid tenderness Right External Auditory Canal: normal, healthy skin, no obstructing cerumen, no discharge Left External Auditory Canal: normal, healthy skin, no obstructing cerumen, no discharge NECK: Neck: no masses, trachea midline, normal range of motion, no cysts or pits, no tenderness to palpation LYMPH NODES: Cervical: no palpable lymph node enlargement SKIN: General Appearance: no lesions, warm and dry, normal turgor, no bruising PSYCHIATRIC: Mood and affect: normal mood, normal affect Assessment and Plan: Pathology was consistent with an inflamed pre-auricular cyst. This appears to be excised in full. The patient is doing well after surgery with good healing. We have discussed ongoing wound care and any anticipated changes with healing. Repeat assessment is recommended as scheduled. The patient/caregiver is to notify the office if no improvement or worsening of symptoms is noted prior to the scheduled follow-up for sooner evaluation. The patient and/or caregiver is able to state an understanding of these recommendations and is agreeable to the treatment plan. 1. Congenital preauricular pit Return if symptoms worsen or fail to improve. The patient and/or caregiver is to notify the office if no improvement or worsening of symptoms is noted prior to the scheduled follow-up for sooner evaluation. The patient and/or caregiver is able to state an understanding of these recommendations and is agreeable to the treatment plan. --Katie Rashid MD on 06/20/2022 at 9:29 AM An electronic signature was used to authenticate this note. documented in this encounter [facility] 05-17-2022 Instructions Katie Rashid MD - 05/17/2022 10:25 AM EST SKIN LESION BIOPSY/EXCISION Growths or lesions of this skin may be either benign (non-cancerous) or malignant (cancerous). These can include common moles, warts, and skin tags which are non-cancerous lesions. Common cancers of the skin include basal cell, squamous cell, and melanoma type cancers, although there are many other types of cancers that can occur from, or appear on, the skin and may require treatment. The leading cause of skin cancer is sun exposure and smoking, and the head, face, and neck are common sites for skin cancers to occur. REASONS FOR SURGERY- How is the decision made? Surgery on skin lesions is a decision to be made between the surgeon and the patient or family. Skin lesions may be biopsied (a small portion removed for identification by the pathologist,) or excised (surgically removed) for treatment. Generally, surgery is recommended when one or more of the following symptoms or findings are noted: ? Skin lesions that grow, bleed, itch, are painful, fail to heal, are discolored relative to the surrounding skin, that have irregular edges or coloration, or that rub or catch on clothing ? A mass, tumor, cyst, or infection in the skin has been identified that cannot be managed with medication or other treatment ? A biopsy has found cancer or cells suspicious for cancer in a skin lesion ? Skin lesions that are cosmetically unappealing or impair normal function ? Other problems as discussed with your doctor SURGICAL TREATMENT- What are the Risks, Alternatives, Potential Complications, and Benefits? ? Risks- The risks from skin excision include: scar formation, change in the flexibility, coloration, or shape in the excised area, temporary or permanent numbness of the area, bleeding, or infection at the surgical site. There is a small risk from local anesthesia of adverse or allergic reactions. Smoking and excess sun exposure may reduce healing and increase the risks of infection, scar formation, as well as increase risk of skin cancers. ? Alternatives- Some conditions of the skin may be observed, and some cancerous lesions may be treated with radiation or treatment other than surgery. Sometimes a decision to not have treatment can have serious consequences that you should discuss with your doctor. ? Complications- There are some complications of excision of skin lesions. These include bleeding, infection, scar formation, or change of shape or function of the area of skin removal. Notify your doctor immediately if redness, discharge, rapid swelling, worsening pain, and/or excessive bleeding at the surgical site is noted after surgery. ? Benefits- Most skin excisions are without severe complications and with a good functional and cosmetic outcome. Success in relieving most conditions is good to excellent depending on the severity of the underlying disease. RECOVERY- What should I expect? Recovery from the excision of skin lesions is usually rapid, and return to normal activity the same or next day can be expected. Recovery from infections or cancers may require longer periods and need additional treatment. Most biopsies are performed in the office. Excision of lesions may be performed either in the office, or in a hospital setting, but you should expect to go home afterwards unless otherwise instructed by your doctor. Call your doctor if you have any questions or concerns that are not answered here. ? Pain- Pain is an expected part of recovery after surgery. Pain is usually mild and localized to the excision site. This can be treated with oral pain medication prescribed by your doctor. Take only the medication prescribed by your doctor. Over the counter medications such as Tylenol?, Aspirin?, Advil?, Motrin?, Aleve?, and ibuprofen are generally adequate for relief of pain. Narcotic pain medications are seldom needed. If pain is severe, worsens, or is not relieved by the pain medication listed above, call your doctor. ? Swelling or bleeding at the incision site- A small amount of bleeding that subsides over the first day is normal. Bleeding beyond this time, or bleeding soaking through several gauze pads, is not normal. If you notice this, please notify your doctor immediately. ? Fever- A fever is not expected after excision of a skin lesion and if present may be a sign of infection. Call your doctor for a fever over 101.5 F. ? Eating and drinking- You may resume your regular diet after surgery. ? Activity- Normal household activity is usually fine after excision of a skin lesion. Avoid activities that pull or rub at the excision site. Keep the excision site dry for the first 48 hours (2 days.) After that time, it is OK to gently wash the site with a washcloth or in the shower, but do not submerge the area until it is fully healed, usually after 1-2 weeks or after any sutures have been removed. Do not drive or operate machinery while on narcotic pain medications. ? MEDICATIONS- Ask your doctor about resuming your home medications. Do not take herbal medications without asking your doctor as these often have blood thinning properties which can increase the risk of bleeding. CONTINUING CARE- What additional care do I need after surgery? Follow-up- Your doctor will see you for follow-up evaluation in approximately 1-2 weeks after surgery unless another time has been arranged. Sutures on the face, if present, are usually removed in 5-7 days. Call the office if an appointment has not been previously scheduled. You will likely be seen for several visits to ensure that healing is progressing well and that no complications have been encountered. If surgery was performed for the treatment of cancer, radiation treatment or chemotherapy may be advised as well as regular follow-up visits to monitor for any recurrent disease, sometimes for many years. Smoking, as well as excess sun exposure or the use of tanning beds, should be avoided to promote healing and to reduce the risk of scarring or discoloration and the possibility of recurrent disease. Protecting the area from excess sun exposure can help to reduce the risk of scar or differences in pigmentation from the surrounding skin. If you experience any problems or have any concerns during your recovery, please call the office. NOTICE: THIS DOCUMENT IS INTENDED SOLELY FOR PATIENT EDUCATIONAL PURPOSES AND IS PROVIDED A COURTESY TO PATIENTS OF DR. KATEI RASHID MD. IT IS NOT INTENDED A SUBSTITUTE FOR PROFESSIONAL MEDICAL CARE OR ADVICE. THE PATIENT SHOULD SEEK ADVICE FROM THE PHYSICIAN IF THERE ARE ANY QUESTIONS ABOUT THE CONTENTS OR DIRECTIONS PROVIDED IN THIS DOCUMENT documented in this encounter [facility] 05-17-2022 History of Presen t illness Narrative [facility] [address] [facility] [place] [address] [facility] [id number] Dept: [phone] Katie Rashid MD Aline Xiong 16 y.o. female Patient presents with a chief complaint of NPV preauricular cyst (New patient) BP 122/78 Pulse 86 Ht 4' 11 Wt 74.8 kg (165 lb) SpO2 94% BMI 33.33 kg/m History of Presenting Illness: The patient/caregiver reports a history of complaint with the following features: Onset: started last week Timing: abrupt onset Duration: one week Quality: redness and swelling left pre-auricular pit Location: left ear Severity: pain mild Risk factors: similar infection right ear that resolved after excision of cyst Alleviating factors: antibiotic, warm compresses Aggravating factors: nothing makes Associated factors: no hearing loss Review of systems covering 10 systems is reviewed and pertinent positives and negatives are noted as above. History reviewed. No pertinent past medical history. Current Outpatient Medications: albuterol 90 mcg/actuation inhaler, Inhale 2 (two) puffs every 6 (six) hours as needed ., Disp: , Rfl: amoxicillin-clavulanate (AUGMENTIN) 250-62.5 mg/5 mL suspension, , Disp: , Rfl: budesonide (PULMICORT) 0.5 mg/2 mL nebulizer solution, 2 mL (0.5 mg total) 2 (two) times a day ., Disp: , Rfl: cetirizine (ZYRTEC) 10 MG tablet, , Disp: , Rfl: fluticasone propionate (FLONASE) 50 mcg/actuation nasal spray, 1 (one) spray every night at bedtime ., Disp: , Rfl: Allergies Allergen Reactions Tylenol [Acetaminophen] Dizziness only History reviewed. No pertinent surgical history. Social History Socioeconomic History Marital status: Single Tobacco Use Smoking status: Never Passive exposure: Never Smokeless tobacco: Never Substance and Sexual Activity Alcohol use: Never History reviewed. No pertinent family history. PHYSICAL EXAM: The patient was examined today 05/17/2022 with findings as follows: CONSTITUTIONAL: General Appearance: well-appearing, nontoxic, alert, no acute distress Communication: understanding at normal conversational tones, normal voicing, speech intelligible HEAD/FACE: Head: atraumatic, normocephalic, no lesions Facial Inspection: no lesions, healthy skin Facial Strength: motor strength normal, symmetric strength, symmetric movement Sinuses: no sinus tenderness Salivary Glands: no enlargements of parotid glands, no tenderness of parotid glands, no masses of parotid glands, clear salivary flow on palpation from Stensen's ducts, no duct stones of Stensen's duct, no enlargement of submandibular glands, no tenderness of submandibular glands, no masses of submandibular glands, clear salivary flow from [place]'s ducts, no stones of [place]'s ducts Temporomandibular Joint: no crepitus with motion, no tenderness on palpation, no trismus, motion symmetric EYES: Pupils: PERRLA, extra-ocular movements intact, no nystagmus, sclera white, no redness of eyes, no watering of eyes EARS: Bilateral External Ears: no pits, no tags Right External Ear: normally formed, no lesions, no mastoid tenderness, well healed excision scar Left External Ear: tender pre-auricular pit with mild induration, no mastoid tenderness Right External Auditory Canal: normal, healthy skin, no obstructing cerumen, no discharge Left External Auditory Canal: normal, healthy skin, no obstructing cerumen, no discharge Right Tympanic Membrane: normal landmarks, translucent, mobile to pneumatic otoscopy, no perforation Left Tympanic Membrane: normal landmarks, translucent, mobile to pneumatic otoscopy, no perforation Hearing: intact to spoken voice NOSE: Nasal Skin: no lesions, no lacerations, no scars Nasal Dorsum: symmetric with no visible or palpable deformities Nasal Tip: normal symmetric nasal tip, normal nasal valves Nasal Mucosa: normal, pink and moist Septum: not markedly deformed, midline, no exposed vessels, no bleeding, no septal granuloma Turbinates: normal size and conformation Nasopharynx: normal ORAL CAVITY/MOUTH: Lips, teeth, gums: normal lips, normal gums, dentition intact, no dental pain on palpation Oral Mucosa: normal, moist, no lesions Palate: normal hard palate, normal soft palate, symmetric palatal elevation Floor of Mouth: normal floor of mouth Tongue: normal tongue, no lesions, no edema, no masses, normal mucosa, mobile Tonsils: normal tonsils, symmetric, no lesions Posterior pharynx: normal NECK: Neck: no masses, trachea midline, normal range of motion, no cysts or pits, no tenderness to palpation Thyroid: normal thyroid, no enlargement, no tenderness, no nodules LYMPH NODES: Cervical: no palpable lymph node enlargement RESPIRATORY: Inspection/Auscultation: good air movement, chest expands symmetrically, normal breath sounds, no wheezing, no stridor CARDIOVASCULAR SYSTEM: Auscultation: regular rate and rhythm, carotid pulse normal, no carotid thrills, no carotid bruits Observation/Palpation of Peripheral Vascular System: no varicosities, no cyanosis, no edema SKIN: General Appearance: no lesions, warm and dry, normal turgor, no bruising NEUROLOGICAL SYSTEM: Orientation: oriented to time, oriented to place, oriented to person Cranial Nerves: Cranial Nerves II-XII intact, normal facial movement PSYCHIATRIC: Mood and affect: normal mood, normal affect Assessment and Plan: She presents with a left pre-auricular pit that has started with a pattern of swelling and tenderness and infection. This has cleared with antibiotic, but a recurrence pattern is anticipated with this type of lesion. She has had an excellent result after excision of her right pit which had caused significant infection and excision of the left is advised as this appears to now have a similar issue. 1. Congenital preauricular pit 2. Soft tissue infection No follow-ups on file. The patient and/or caregiver is to notify the office if no improvement or worsening of symptoms is noted prior to the scheduled follow-up for sooner evaluation. The patient and/or caregiver is able to state an understanding of these recommendations and is agreeable to the treatment plan. --Katie Rashid MD on 05/17/2022 at 10:16 AM An electronic signature was used to authenticate this note. Review of Systems Constitutional: Negative. HENT: Positive for ear discharge and ear pain. Eyes: Negative. Respiratory: Negative. Cardiovascular: Negative. Gastrointestinal: Negative. Endocrine: Negative. Genitourinary: Negative. Musculoskeletal: Negative. Skin: Negative. Allergic/Immunologic: Negative. Neurological: Positive for headaches. Hematological: Negative. Psychiatric/Behavioral: Negative. documented in this encounter [facility] 06-25-2021 Note REASON FOR EXAM: Def ormity PROCEDURE: XR SCOLIOSIS - PA AND LATERAL COMPARISON: None TECHNIQUE: Radiography of the thoracolumbar spine. POSITION: Standing PA and lateral FINDINGS: There are 14 right-sided ribs and 12 left-sided ribs. Lower thoracic vertebral fusion/segmentation anomalies are present but not clearly defined. HARDWARE: None CURVATURE: S-shaped spinal curvature. T9-L1: Levoconvex curvature measuring 67 degrees. L1-L5: Dextroconvex curvature measuring 54 degrees. SHOULDER HEIGHTS: Right coracoid process measures 0.8 cm lower than the left coracoid process PELVIC TILT: Right iliac crest projects 2 cm lower than the left iliac crest. RISSER GRADE: 4 LUNGS: Clear. ABDOMEN: Bowel gas pattern is within normal limits. 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 There is prominent kyphotic deformity at the thoracolumbar junction with relative straightening of the more cephalad thoracic spine. LUMBAR LORDOSIS (L1-L5): degrees. No spondylolysis or spondylolisthesis. There is right-sided coxa valga suggested with mild acetabular coverage of the lateral portion of the femoral head. IMPRESSION: 1. Congenital scoliosis 2. Right inferior pelvic tilt 3. 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 Up to restroom, void sufficient amount. Yes 1. Minimum 30 minutes after last dose of sedative medication, minimum 120 minutes after last dose of reversal agent. Yes 2. Systolic BP stable within 20 mmHg for 30 minutes & systolic BP between 90 & 180 or within 10 mmHg of baseline. Yes 3. Pulse between 60 and 100 or within 10 bpm of baseline. Yes 4. Spontaneous respiratory rate >/= 10 per minute. Yes 5. SaO2 >/= 95 or >/= baseline. Yes 6. Able to cough and swallow or return to baseline function. Yes 7. Alert and oriented or return to baseline mental status. Yes 8. Demonstrates controlled, coordinated movements, ambulates with steady gait, or return to baseline activity function. Yes 9. Minimal or no pain or nausea, or at a level tolerable and acceptable to patient. Yes 10. Takes and retains oral fluids as allowed. Yes 11. Procedural / perioperative site stable. Minimal or no bleeding. Yes 12. If GI endoscopy procedure, minimal or no abdominal distention or passing flatus. Yes 13. Written discharge instructions and emergency telephone number provided. Yes 14. Accompanied by a responsible adult. Yes Adult patient discharged from facility without responsible person meets above criteria plus the following: a) remains awake without stimulus for 30 minutes b) oriented appropriate for age c) all vital signs stable d) no significant risk of losing protective reflexes e) able to maintain pre-procedure mobility without assistance f) no nausea or dizziness g) transportation arrangements that do not require patient to operate motor Vehicle. 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 No LMP recorded. (Menstrual status: Other - See Notes). Do you take blood thinners? [] Yes [x] No Instructed to stop blood thinners prior to procedure? [] Yes [] No [x] N/A Do you have sleep apnea? [] Yes [x] No Do you have acid reflux ? [] Yes [x] No Do you have hiatal hernia? [] Yes [x] No Do you ever experience motion sickness? [] Yes [x] No Have you had a respiratory infection or sore throat in last 4 weeks before surgery? [] Yes [x] No Do you have poorly controlled asthma or COPD? Difficulty with intubation in past? [] Yes [x] No [] Yes [x] No Do you have a history of angina in the last month or symptomatic arrhythmia? [] Yes [x] No Do you have significant central nervous system disease? [] Yes [x] No Have you had an EKG, labs, or chest xray in last 12 months? If yes provide copies to anesthesia [] Yes [x] No [] Lab [] EKG [] CXR Have you had a stress test? [] Yes [x] No When/where: Was it normal? [] Yes [] No Do you or your family have a history of Malignant Hyperthermia? [] Yes [x] No Do you smoke? [] Yes [x] No Please refrain from smoking on the day of surgery. Patient instructed on: [x] NPO Status [x] Meds to Take [x] Ride Home [x]No Jewelry/Contact Lenses/Nail Gabonese [] Prep/Lax/Clear Liquids [] Chlorhexidene DOS Patient Needs [] HCG [] Blood Sugar [] PT/INR [] T&S COVID Vaccinated? [] Yes [x] No Patient instructed on the pre-operative, intra-operative, and post-operative process? Yes Medication instructions reviewed with patient? Yes documented in this encounter [email or web address] Phone: 11-04-2020 Hospital Discharg e instructions Juan R Childress PA-C - 11/04/2020 Warm compresses 4-5 times daily Avoid using the headphones Tylenol or Motrin for pain Follow-up with ENT in 1 to 2 days The following attachments cannot be sent through Care Everywhere.Abscess: Skin: Pediatric (Mongolian)documented in this encounter [email or web address] Phone: 09-20-2020 [facility] Discharg e instructions Lena Coulter DO - 09/20/2020 Take tylenol for pain, okay to apply ice to areas of pain for 15 minutes at a time off and on throughout the day. Use the lidoderm patch for your back. Follow up with your primary care doctor, return to Er for worsening back pain, numbness, tingling or weakness. documented in this encounter [email or web address] Phone: 08-26-2020 [facility] Discharg e instructions Anastasia Jama MD - 08/26/2020 Please follow up with Dr. Rick WALKER. Please take Antibiotics as prescribed. Can use warm compresses to area to aid in draining. If swelling, redness, or drainage increases please follow up with your PCP or return to the ER. The following attachments cannot be sent through Care Everywhere.Abscess: Skin: Pediatric (Mongolian)documented in this encounter [email or web address] Phone: 05-24-2019 [facility] Discharg e instructions Samantha Martini PA-C - 05/24/2019 Rest ice and elevate your knee. Follow-up with orthopedic physician listed below if you have any continued pain. The following attachments cannot be sent through Care Everywhere.Knee Pain or Injury: Pediatric (Mongolian)documented in this encounter [email or web address] Phone: Evaluation note Diagnosis Abscess- Primary Cellulitis and abscess of unspecified site documented in this encounter [email or web address] Phone: evaluation note* Diagnosis Fall, initial encounter- Primary Midline low back pain without sciatica, unspecified chronicity Acute pain of right knee Acute right ankle pain documented in this encounter [email or web address] Phone: evaluation note* Diagnosis Facial cellulitis- Primary Cellulitis and abscess of face documented in this encounter [email or web address] Phone: evaluation note* Diagnosis Cyst, dermoid, face- Primary Benign neoplasm of skin of other and unspecified parts of face documented in this encounter [email or web address] Phone: evaluation note* Diagnosis Abscess of preauricular sinus- Primary documented in this encounter [facility] [employer] Phone: [email or web address] note* Diagnosis Injury of left knee, initial encounter- Primary documented in this encounter [facility] [employer] Phone: evaluation note* Diagnosis Sprain of left hand, initial encounter- Primary documented in this encounter [facility] Phone: evaluation note* Diagnosis Congenital preauricular pit- Primary Other specified congenital anomaly of face and neck Soft tissue infection Unspecified infectious and parasitic diseases Congenital preauricular pit Other specified congenital anomaly of face and neck Soft tissue infection Unspecified infectious and parasitic diseases Congenital preauricular pit Other specified congenital anomaly of face and neck Soft tissue infection Unspecified infectious and parasitic diseases [facility] Congenital preauricular pit- Primary Other specified congenital anomaly of face and neck Soft tissue infection Unspecified infectious and parasitic diseases Renal agenesis, 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 Other specified congenital anomaly of face and neck Soft tissue infection Unspecified infectious and parasitic diseases Congenital preauricular pit Other specified congenital anomaly of face and neck Soft tissue infection Unspecified infectious and parasitic diseases [facility] Diagnosis Congenital preauricular pit- Primary Other specified congenital anomaly of face and neck [facility] Diagnosis Sprain of right knee, unspecified ligament, initial encounter- Primary [facility]* Diagnosis Left wrist injury, initial encounter- Primary [facility]* Diagnosis Chest pain, unspecified type- Primary [facility]* Diagnosis Allergic reaction, initial encounter- Primary [facility]* Diagnosis Palpitations documented in this encounter [facility] note* Diagnosis Dog bite of right hand, initial encounter- Primary [facility]* Diagnosis Bronchitis- Primary Bronchitis, not specified as acute or chronic [facility] Diagnosis Routine adult health maintenance- Primary VATER syndrome Other specified congenital anomalies, so described Renal agenesis, unilateral Congenital renal agenesis and dysgenesis Mild intermittent asthma without complication [facility]* Diagnosis Attention deficit hyperactivity disorder (ADHD), predominantly inattentive type- Primary [facility]* Diagnosis Contusion of right knee, initial encounter- Primary documented in this encounter [facility] note* Diagnosis Upper respiratory tract infection, unspecified type- Primary documented in this encounter [facility] note* Diagnosis Mild intermittent asthma without complication- Primary VATER syndrome Other specified congenital anomalies, so described [facility]* Diagnosis Mild intermittent asthma without complication- Primary [facility]* Diagnosis Mild intermittent asthma without complication [facility]* Diagnosis Moderate persistent asthma without complication- Primary Bronchitis Bronchitis, not specified as acute or chronic Renal agenesis, unilateral Congenital renal agenesis and dysgenesis Other fatigue [facility]* Attachments The following attachments cannot be sent through Care Everywhere. * Cellulitis: Pediatric (Mongolian) * Abscess: Skin: Pediatric (Mongolian) [facility] Discharge [facility]* Attachments The following attachments cannot be sent through Care Everywhere. * Skin Cyst: Pediatric (Mongolian) documented in this [facility] [employer] [facility] Phone: Hospital Discharge instructions* Instructions* Zoë Comer PA - 12/01/2020 Pain- Pain is an expected part of recovery after surgery. Pain may be noted at the incision, or with speaking or swallowing. This can be treated with oral pain medication prescribed by your doctor. Take only the medication prescribed by your doctor. Over the counter medications such as Aspirin?, Advil?, Motrin?, Aleve?, and ibuprofen may cause an increased risk of bleeding and should be used withcaution. If pain is severe, worsens, or is not relieved by the pain medication listed above, call your doctor. Difficulty breathing or swallowing- Please notify your doctor immediately if severe problems with breathing or swallowing develop. Mild changes may be normal and should improve with healing. Swelling, redness, drainage or bleeding at the incision site- This is not normal. If you notice this, please notify your doctor immediately. Nausea and vomiting- These are usually due to the effects of anesthesia and should subside in the first day or two. If they continue beyond this, are related to taking pain medication, or contain blood, call your doctor. Fever- A low grade temperature of less than 102 F for a few days after surgery is normal. Notify your doctor for fever above this, or one that persists for greater than 3 days. Eating and drinking- You may resume your regular diet after surgery unless a special diet is advised by your doctor. Do not eat if a feeding tube has been placed until instructed to do so by your doctor. Activity- It is recommended that heavy lifting, exertion, and other strenuous activity be avoided for one to two weeks after surgery. Do not drive or operate machinery while on narcotic pain medications. [facility]: Hospital Discharge instructions* Attachments The following attachments cannot be sent through Care Everywhere. * Hand Sprain: Pediatric (Mongolian) [facility] [employer] Phone: InstructionsNot on filedocumented in this encounter [facility] [employer] SystemInstructionsNot on filedocumented in this encounter [facility] [employer] SystemInstructions* Attachments The following attachments cannot be sent through Care Everywhere. * Seasonal Allergies ED (Mongolian) documented in this encounterProFibroblast SystemInstructionsNot on file documented [facility] SystemInstructionsNot on file documented in this [facility] SystemInstructionsNot on file documented in this encounterProHock[facility]GT [facility] SystemInstructionsNot on file documented in this [facility] Summary Purpose Family History No Family History Records FoundNo Family History Records FoundNo Family History Records FoundNo Family History Records FoundNo Family History Records FoundNo Family History Records FoundNo Family History Records FoundNo Family History Records FoundNo Family History Records Found Advance Directives Documents on File Type Date Recorded Patient Factory Manager Expl anation Advance Directives and Living Will Power of Deodorizer Operator Latest Code Status on File Code Status Date Activated Date Inactivated Comments Full Code 04/09/2018 3:46 AM 04/11/2018 6:54 PM Documents on File Type Date Recorded Patient Factory Manager Expl anation ACP-Advance Directive ACP-Power of Deodorizer Operator Documents on File Type Date Recorded Patient Factory Manager Expl anation ACP-Advance Directive ACP-Power of Deodorizer Operator Latest Code Status on File Code Status Date Activated Date Inactivated Comments Full Code 12/01/2020 10:14 AM Full Code 12/01/2020 7:36 AM 12/01/2020 10:14 AM Full Code 04/09/2018 3:46 AM 04/11/2018 6:54 PM Latest Code Status on File Code Status Date Activated Date Inactivated Comments Full Code 12/01/2020 10:14 AM 12/01/2020 2:04 PM Full Code 12/01/2020 7:36 AM 12/01/2020 10:14 AM Full Code 04/09/2018 3:46 AM 04/11/2018 6:54 PM Documents on File Type Date Recorded Patient Factory Manager Expl anation Guardianship Papers 05/17/2022 aguilar james Latest Code Status on File Code Status Date Activated Date Inactivated Comments Full Code 06/10/2022 1:16 PM 06/10/2022 4:40 PM Latest Code Status on File Code Status Date Activated Date Inactivated Comments Full Code 12/01/2020 10:14 AM 12/01/2020 2:04 PM Code Status History Code Status Date Activated Date Inactivated Comments Full Code 12/01/2020 7:36 AM 12/01/2020 10:14 AM Full Code 04/09/2018 3:46 AM 04/11/2018 6:54 PM Date Activated Date Inactivated Comments 12/01/2020 10:14 AM 12/01/2020 2:04 PM Date Activated Date Inactivated Comments 12/01/2020 7:36 AM 12/01/2020 10:14 AM Date Activated Date Inactivated Comments 04/09/2018 3:46 AM 04/11/2018 6:54 PM Date Activated Date Inactivated Comments 12/01/2020 10:14 AM 12/01/2020 2:04 PM Date Activated Date Inactivated Comments 12/01/2020 7:36 AM 12/01/2020 10:14 AM Date Activated Date Inactivated Comments 04/09/2018 3:46 AM 04/11/2018 6:54 PM Discharge Instructions * Attachments The following attachments cannot be sent through Care Everywhere. * Ankle Sprain: Rehab Exercises (Mongolian) * Ankle Sprain: Teen (Mongolian) * RICE: General Info (Mongolian) documented in this encounter* Instructions* Demetrius Orlando MD - 07/23/2020 Please take all medications as prescribed. Please follow up with your primary care physician by calling today, or as soon as possible, for thefirst available appointment. If you do not have a primary care physician, please contact a physician or clinic listed below today to establish care. Please return to the emergency department IMMEDIATELY if you develop uncontrolled fevers, uncontrolled vomiting, change in symptoms, worsening of symptoms, or ANY other concerns. * Attachments The following attachments cannot be sent through Care Everywhere. * Abscess: Skin: Pediatric (Mongolian) documented in this encounter* Instructions* Samantha Martini PA-C - 03/02/2019 Keep shoulder in sling. Follow-up with orthopedic provider for further evaluation of continued painof your shoulder. * Attachments The following attachments cannot be sent through Care Everywhere. * Shoulder Pain (Mongolian) documented in this encounter* Instructions* Meghana Cabral MD - 08/03/2020 Keep clean with soap and water. Apply small amount of antibiotic ointment twice daily to affected area. Keep covered with a loose sterile dressing. Take Bactrim as directed until complete. Follow-up with ENT as soon as possible. You must seek medical attention immediately if you develop any worsening redness pain or any other acute concerns. documented in this encounter Assessments Diagnosis Sprain of right ankle, unspecified ligament, initial encounter- Primary Diagnosis Abscess- Primary Cellulitis and abscess of unspecified site Diagnosis Shoulder injury, left, initial encounter- Primary Diagnosis Abscess- Primary Cellulitis and abscess of unspecified site Reason for Referral Specialty Diagnoses / Procedures Referred By Contac t Referred To Contact Diagnoses Palpitations Procedures Extended cardiac holter monitor (3 days-14 day) OR EXTERNAL ECG REC>48HR<7D REVIEW & INTERPRETATION OR EXTERNAL ECG REC>48HR<7D RECORDING OR EXTERNAL ECG REC>7D<15D RECORDING OR EXTERNAL ECG REC>7D<15D REVIEW & INTERPRETATION Torsten Begum MD [address] [place] [address] [place] [address] Referral ID Status Reason Start Date Expiration Date V isits Requested Visits Authorized [id number] Not Required - RTA 12/15/2023 12/14/2024 1 1 Additional Source Comments INFORMATION SOURCE (unrecogn ized section and content) DATE CREATED AUTHOR 02/07/2019 [facility] DATE CREATED AUTHOR AUTHOR'S ORGANIZ ATION 08/28/2020 [facility] DATE CREATED AUTHOR AUTHOR'S ORGANIZ ATION 12/04/2020 [facility] DATE CREATED AUTHOR AUTHOR'S ORGANIZ ATION 06/29/2021 [facility] DATE CREATED AUTHOR AUTHOR'S ORGANIZ ATION 06/20/2022 [facility] DATE CREATED AUTHOR AUTHOR'S ORGANIZ ATION 09/04/2022 [facility] DATE CREATED AUTHOR AUTHOR'S ORGANIZ ATION 03/03/2024 [facility] DATE CREATED AUTHOR AUTHOR'S ORGANIZ ATION 07/31/2024 [facility] DATE CREATED AUTHOR AUTHOR'S ORGANIZ ATION 08/14/2024 [facility] Reason for Visit (unrecogniz ed section and content) Reason Comments Ankle Pain right ankle pain. pa tient injured right ankel 1.5 weeks ago Reason Comments Other swelling of right th at started 07/19, pt being treated with atb Reason Comments Shoulder Injury left shoulder, lande d on it after tripping on water Reason Comments Wound Check right ear abscess Abscess Reason Comments Abscess above right ear, paula inage Reason Comments Fall fall x2 at work, c/o of lower back pain and pain from right knee to right foot, denies hitting head or LOC Reason Comments Facial Pain pain and reddness at right side of face, onset ongoing Reason Comments Facial Swelling right sided; onset o zunilda night; seen in ED last evening; pt taking doxycycline Reason Comments Abscess right side of face i nfront of ear; treated for this before; started getting red last evening Status Reason Specialty Diagnoses / Procedures Referre d By Contact Referred To Contact Diagnoses Preauricular sinus and cyst Right preaurcular sinus and fistula Procedures OR EXCISION BRACH CLFT CYST,SUPERFICIAL BRANCHIAL CLEFT CYST EXCISION Katie Rashid MD [address] [place] [id number] [facility] Reason Comments Knee Pain left knee Reason Comments Hand Injury Pt injured left hand yesterday after she twisted it while carrying a chair. PMS intact. Pt has ROM. Ice pack applied in triage Reason Comments NPV preauricular cyst New patient Reason Comments preauricular pit excision Post op Reason Comments Knee Injury Patient fell onto he r knee last week. Reason Comments Wrist Injury While using a whelpe r to cut metal the patient pushed against left hand bending left wrist patient heard a pop and pain since 1100 this AM. Reason Comments Nasal Congestion Patient states that she feels congested and every time she tries to talk in a deep breathe, she looses her breath. States she used her inhaler but no positive changes. Reason Comments Chest Pain Pt to ED from the [facility] with c/o chest pain and shortness of breath.Pt reports a heaviness mid chest.Onset of symptoms x1.5 hours ago.Pt also report headache and dizziness.Pt was evaluated by the event's EMS personnel andadvised to seek evaluation at the ED. Dizziness Headache Shortness of Breath Reason Comments Allergic Reaction Pt to ED from home w ith c/o allergic reaction.Pt had heart monitor placed 12/15/23 in MD office.Pt noticed redness around the monitor and began to itch shortly after placement. Specialty Diagnoses / Procedures Referred By Elif t Referred To Contact Diagnoses Palpitations Procedures Extended cardiac holter monitor (3 days-14 day) OR EXTERNAL ECG REC>48HR<7D REVIEW & INTERPRETATION OR EXTERNAL ECG REC>48HR<7D RECORDING OR EXTERNAL ECG REC>7D<15D RECORDING OR EXTERNAL ECG REC>7D<15D REVIEW & INTERPRETATION Torsten Begum MD [address] [place] [address] [place] [address] Referral ID Status Reason Start Date Expiration Date V isits Requested Visits Authorized [id number] Not Required - RTA 12/15/2023 12/14/2024 1 1 Reason Comments Animal Bite Patient bitten by he r dog last night, concerned with bruising going on around the thumb area. Reason Comments Sore Throat Cough Nasal Congestion Reason Comments Establish Care Reason Comments Anxiety ADHD Reason Comments Fall Pt to ED from home w ith c/o fall with right knee injury/pain.Pt fell and hit knee on tree stump x1 day ago.Pt tripped over a tree branch.Pt took Motrin yesterday. Knee Injury Knee Pain Reason Comments Cough Patient complains of cough that has been ongoing since last week, patient saw her PCP this AM. Patient complains of cough, congestion and concern that she has an infection due to being born early. Patient diagnosed with viral illness by PCP. Reason Comments Cough Reason Onset Date Comments Med Refill 07/31/2024 Reason Comments Cough Ordered Prescriptions (unrec ognized section and content) Prescription Sig Dispensed Refills Start Date End Da te sulfamethoxazole-trimethop rim (BACTRIM;SEPTRA) 200-40 MG/5ML suspension Take 20 mLs by mouth 2 times daily for 7 days 280 mL 0 07/23/2020 07/30/2020 Prescription Sig Dispensed Refills Start Date End Da te sulfamethoxazole-trimeth oprim (BACTRIM;SEPTRA) 200-40 MG/5ML suspension Take 20 mLs by mouth 2 times daily for 7 days 280 mL 0 08/03/2020 08/10/2020 mupirocin (BACTROBAN) 2 % cream Apply topically 3 times daily. 1 Tube 1 08/03/2020 09/02/2020 mupirocin (BACTROBAN) 2 % ointment Apply topically 3 times daily. 22 g 0 08/03/2020 08/03/2020 sulfamethoxazole-trimeth oprim (BACTRIM;SEPTRA) 200-40 MG/5ML suspension Take 20 mLs by mouth 2 times daily for 7 days 280 mL 0 08/03/2020 08/03/2020 Prescription Sig Dispensed Refills Start Date End Da te lidocaine (LIDODERM) 5 % Place 1 patch onto the skin daily 12 hours on, 12 hours off. 6 patch 0 09/20/2020 Prescription Sig Dispensed Refills Start Date End Da te doxycycline monohydrate (ADOXA) 100 MG tablet Take 1 tablet by mouth 2 times daily for 7 days 14 tablet 0 09/24/2020 10/01/2020 doxycycline monohydrate (ADOXA) 100 MG tablet Take 1 tablet by mouth 2 times daily for 10 days 20 tablet 0 09/24/2020 10/04/2020 Prescription Sig Dispensed Refills Start Date End Da te doxycycline monohydrate (ADOXA) 100 MG tablet Take 1 tablet by mouth 2 times daily for 10 days 20 tablet 0 11/04/2020 11/14/2020 Prescription Sig Dispensed Refills Start Date End Da te cephALEXin (KEFLEX) 500 MG capsule Take 1 capsule by mouth 4 times daily for 7 days 28 capsule 0 12/01/2020 12/08/2020 acetaminophen (TYLENOL) 325 MG tablet Take 2 tablets by mouth every 6 hours as needed for Pain 1 tablet 0 12/01/2020 ibuprofen (ADVIL;MOTRIN) 200 MG tablet Take 2 tablets by mouth every 6 hours as needed for Pain 1 tablet 0 12/01/2020 Prescription Sig Dispensed Refills Start Date End Da te diphenhydrAMINE-zinc acetate (BENADRYL) 1-0.1 % cream Apply topically 3 times daily as needed. 28 g 12/16/2023 Prescription Sig Dispensed Refills Start Date End Da te lidocaine (LIDODERM) 5 % Place 1 patch onto the skin daily 12 hours on, 12 hours off. 30 patch 06/23/2024 Scheduled Active and Recently Administ ered Medications (unrecognized section and content) Medication Order 09/18/2020 09/19/2020 09/20/2020 acetaminophen (TYLENOL) tablet 650 mg (COMPLETED) 650 mg, Oral, ONCE, On 09/20/20 at 2145, For 1 dose 2137 (Given - Provid er: Kelsey Mcmullen RN) lidocaine 4 % external patch 1 patch 1 patch, Transdermal, Administer over 12 Hours, ONCE, On 09/20/20 at 2245, For 1 dose, Apply patch to right lower back. Patch may remain in place for up to 12 hours in any 24 hour period. 2249 (Patch Applied - Provider: Kathi Cole RN) Scheduled Medication Order 11/02/2020 11/03/2020 11/04/2020 clindamycin (CLEOCIN) 600 mg in dextrose 5 % 50 mL IVPB (COMPLETED) 600 mg, Intravenous, ONCE, 1 dose, On Mon11/04/20 at 1315 1358 (New Bag - Prov ider: Liberty Morales, RN)1430 (Stopped - Provider: Liberty Morales RN) Continuous Medication Order 11/02/2020 11/03/2020 11/04/2020 0.9 % sodium chloride infusion 1,000 mL, Intravenous, at 125 mL/hr, Administer over 8 Hours, CONTINUOUS, Starting on Mon11/04/20 at 1200 1232 (New Bag - Prov ider: Liberty Morales RN)1553 (Stopped - Provider: Liberty Morales RN) PRN Medication Order 11/02/2020 11/03/2020 11/04/2020 iopamidol (ISOVUE-370) 76 % injection 75 mL (COMPLETED) 75 mL, Intravenous, IMG ONCE PRN, Other, Starting on Mon11/04/20 at 1403, For 1 dose 1408 (Given - Provid er: Avi Centeno) Scheduled Medication Order 11/29/2020 11/30/2020 12/01/2020 sodium chloride flush 0.9 % injection 5-40 mL 5-40 mL, Intravenous, EVERY 12 HOURS SCHEDULED (2 times per day), First dose on Mon12/01/20 at 1030, For Line Patency: Peripheral IV = 5 mL; Midline or Central Line = 10 mL/lumen. If following IV push medication, administer flush at same rate as the IV push. Flush volume is determined by type of infusion therapy being given. For non-viscous solutions use: Peripheral IV = 5 mL Midline or Central Line = 10 mL/lumen For viscous solutions (i.e. blood components, parenteral nutrition, contrast media, or after obtaining blood sample) use: Peripheral IV = 10 mL Midline or Central Line = 20 mL/lumen, Post-op 1030 (Due)2100 (Due) Continuous Medication Order 11/29/2020 11/30/2020 12/01/2020 lactated ringers infusion Intravenous, at 50 mL/hr, CONTINUOUS, Starting on Mon12/01/20 at 0800, Pre-op (day of surgery) 0759 (New Bag - Prov ider: Emely Bernardo RN)0831 (NoRateChange - Provider: Katie Rashid MD) PRN Medication Order 11/29/2020 11/30/2020 12/01/2020 0.9 % sodium chloride infusion 25 mL, Intravenous, at 100 mL/hr, PRN, If patient receiving piggyback infusions without ordered maintenance IV fluids or with frequent/long duration piggyback infusions, Starting on Mon12/01/20 at 1014, Administer at the same rate as the piggyback being infused., Post-op acetaminophen (TYLENOL) tablet 650 mg 650 mg, Oral, EVERY 4 HOURS PRN, post-op pain, Starting on Mon12/01/20 at 1014, Maximum dose of acetaminophen is 4000 mg from all sources in 24 hours., Post-op ibuprofen (ADVIL;MOTRIN) 100 MG/5ML suspension 400 mg 400 mg, Oral, EVERY 6 HOURS PRN, Pain Mild (1-3), Starting on Mon12/01/20 at 1059 1106 (Given - Provid er: Jumana Alejo RN) lidocaine-EPINEPHrine 1 %-1:617455 injection (CANCELED) PRN, Starting on Mon12/01/20 at 1003, Intra-op 1003 (Given - Provid er: Katie Rashid MD - Comment: RIGHT PERIARICULAR AREA) sodium chloride flush 0.9 % injection 5-40 mL 5-40 mL, Intravenous, PRN, Line Care, Starting on Mon12/01/20 at 1014, After every IV line use, Post-op Scheduled Medication Order 04/12/2023 04/13/2023 04/14/2023 ibuprofen (ADVIL;MOTRIN) tablet 800 mg 800 mg, Oral, ONCE, 1 dose, On Mon04/14/23 at 1645 1705 (Not Given - Pr ovider: Gianna Alberto RN - Reason: Patient/family refused) Scheduled Medication Order 11/24/2023 11/25/2023 11/26/2023 ketorolac (TORADOL) injection 30 mg (COMPLETED) 30 mg, IntraVENous, ONCE, 1 dose, On Mon11/26/23 at 2100, Do not administer for more than 5 days. 2048 (Given - Provid er: Kelsey Mcmullen RN) sodium chloride 0.9 % bolus 1,000 mL (COMPLETED) 1,000 mL (12.6 mL/kg), IntraVENous, at 1,000 mL/hr, Administer over 1 Hours, ONCE, On Mon11/26/23 at 2015, For 1 dose 2025 (New Bag - Prov ider: Kelsey Mcmullen RN)2148 (Stopped - Provider: Kelsey Mcmullen RN) Scheduled Medication Order 03/23/2024 03/24/2024 03/25/2024 acetaminophen (TYLENOL) tablet 325 mg (COMPLETED) 325 mg, Oral, ONCE, 1 dose, On Mon03/25/24 at 1715, Maximum dose of acetaminophen is 4000 mg from all sources in 24 hours. 1710 (Given - Provid er: Marcela Sloan RN) ibuprofen (ADVIL;MOTRIN) tablet 200 mg (COMPLETED) 200 mg, Oral, ONCE, 1 dose, On Mon03/25/24 at 1715 1711 (Given - Provid er: Marcela Sloan RN) Scheduled Medication Order 06/21/2024 06/22/2024 06/23/2024 ibuprofen (ADVIL;MOTRIN) tablet 200 mg 200 mg, Oral, ONCE, 1 dose, On 06/23/24 at 1900 1906 (Not Given - Pr ovider: Kelsey Mcmullen RN - Reason: Patient/family refused) lidocaine 4 % external patch 1 patch 1 patch, TransDERmal, Administer over 12 Hours, DAILY, First dose on 06/23/24 at 1900, Apply patch to knee. The civil engineering project manager's recommendations for the number of patches that can be applied within a 24-hour period varies from 1 to 4 times daily and the duration of application varies from 8 to 24 hours; refer to the civil engineering project manager's labeling for product-specific recommendations. 1906 (Not Given - Pr ovider: Kelsey Mcmullen RN - Reason: Patient/family refused) Care Teams (unrecognized sec tion and content) Operator Helper Relationship Specialty Start Date End Date Diego Farr MD [address] [address] PCP - General 04/16/13 Operator Helper Relationship Specialty Start Date End Date Norma Burgos MD [address] [place] [address] PCP - General Pediatrics 05/11/22 Operator Helper Relationship Specialty Start Date End Date Norma Burgos MD [address] [place] [address] PCP - General Pediatrics 05/11/22 Operator Helper Relationship Specialty Start Date End Date Norma Burgos MD [address] [place], [place] [id number] PCP - General Pediatrics 05/11/22 Operator Helper Relationship Specialty Start Date End Date Norma Burgos MD [address] [place] [phone] PCP - General Pediatrics 10/23/22 Operator Helper Relationship Specialty Start Date End Date Norma Burgos MD [address] [place] [phone] PCP - General Pediatrics 10/23/22 Operator Helper Relationship Specialty Start Date End Date Norma Burgos MD [address] [place] [phone] PCP - General Pediatrics 10/23/22 Operator Helper Relationship Specialty Start Date End Date Norma Burgos MD [address] [place] [phone] PCP - General Pediatrics 10/23/22 Operator Helper Relationship Specialty Start Date End Date Norma Burgos MD [address] [place] [phone] PCP - General Pediatrics 10/23/22 Operator Helper Relationship Specialty Start Date End Date Norma Burgos MD [address] [place] [phone] PCP - General Pediatrics 10/23/22 Operator Helper Relationship Specialty Start Date End Date Sylvia Rose DO PCP - General 03/07/24 Operator Helper Relationship Specialty Start Date End Date RoseBrianna jacksoncheryl Harding PCP - General 03/07/24 Operator Helper Relationship Specialty Start Date End Date Sylvia Rose PCP - General 03/07/24 Operator Helper Relationship Specialty Start Date End Date Rose, Sylvia Harding DO PCP - General 03/07/24 Operator Helper Relationship Specialty Start Date End Date Rose Sylvia L, DO PCP - General 03/07/24 Operator Helper Relationship Specialty Start Date End Date RoseSylvia DO PCP - General 03/07/24 Operator Helper Relationship Specialty Start Date End Date RoseBrianna jacksoncheryl Harding DO PCP - General 03/07/24 Operator Helper Relationship Specialty Start Date End Date RoseBrianna jacksoncheryl Harding DO [address] [place] [address] PCP - General Family Medicine 02/08/24 Operator Helper Relationship Specialty Start Date End Date RoseBrianna jacksoncheryl Harding DO [address] [place] [address] PCP - General Family Medicine 02/08/24 Operator Helper Relationship Specialty Start Date End Date Sylvia Rose DO [address] [place] [address] PCP - General Family Medicine 02/08/24 Operator Helper Relationship Specialty Start Date End Date Sylvia Rose DO [facility] 03/07/24 Operator Helper Relationship Specialty Start Date End Date Sylvia Rose DO [facility] 03/07/24 Operator Helper Relationship Specialty Start Date End Date Sylvia Rose DO [address] [place] [address] [facility] 02/08/24 Operator Helper Relationship Specialty Start Date End Date Sylvia Rose DO [address] [facility] [address] [facility] 02/08/24 Operator Helper Relationship Specialty Start Date End Date Sylvia Rose DO [address] [place] [address] [facility] 02/08/24 FOR RECORDS PERTAINING TO PATIENTS WHO ARE OR HAVE BEEN ENROLLED IN A CHEMICAL DEPENDENCY/SUBSTANCEABUSE PROGRAM, SOME INFORMATION MAY BE OMITTED. This clinical summary was aggregated from multiple sources. Caution should be exercised in using it in the provision of clinical care. This summary normalizes information from multiple sources, and as a consequence, information in this document may materially change the coding, format and clinical context of patient data. In addition, data may be omitted in some cases. CLINICAL DECISIONS SHOULD BE BASED ON THE PRIMARY CLINICAL RECORDS. [employer] [facility]. provides no warranty or guarantee of the accuracy or completeness of information in this document.
--- NOTE | 2024-10-06 18:50 | ECG_ITS ---
The [facility] Test Date: 2024-10-06 Pat Name: ALINE VALDEZ Department: Room: - Gender: Female Audit Mgr: : 2005 Requested By: [id number] Order Number: [id number] Reading MD: JENNIFFER BINGHAM M.D. Measurements Intervals [place] Rate: 79 P: 34 [place]: 122 QRS: 13 QRSD: 94 T: 28 QT: 358 QTc: 393 Interpretive Statements 1100 Sinus rhythm 1108 Marked sinus arrhythmia 2420 RSR (QR) in lead V1/V2, consistent with right ventricular conduction delay 8102 Low QRS voltage in chest leads 9130 borderline ECG No previous ECG available for comparison Electronically Signed On 10-06-2024 20:08:45 EDT by JENNIFFER BINGHAM M.D.
--- NOTE | 2024-10-06 18:51 | XR_ITS ---
The [address] [address] Patient Name: ALINE VALDEZ MRN: [id number] date: 2005 Sex: F Assigned Patient Location: ER Current Patient Location: ER Accession/Order Number: [id number] Exam Date: 10/06/2024 19:41 Report Date: 10/06/2024 19:42 At the request of: NIKHIL ISAAC Procedure: XR chest 2V Plain film chest 2 view HISTORY: Chest pain. Shortness of breath COMPARISON: None FINDINGS: SUPPORT DEVICES: None POSTSURGICAL CHANGES: None HEART: Within normal limits PULMONARY ROCCO: Within normal limits MEDIASTINUM: Unremarkable LUNGS AND PLEURA: No acute lung process, pleural effusion or pneumothorax identified. BONY STRUCTURES: Scoliosis ADDITIONAL FINDINGS None XR/XR chest 2V IMPRESSION: No acute process. Impression dictated by: Aníbal Coronel M.D. 10/06/2024 7:42 PM Dictation Location: [facility] Electronically authenticated by: [id number] Y Date: 10/06/2024 19:42
--- NOTE | 2024-10-06 18:53 | ED.GENADUL1 ---
HPI HPI - General Adult General Chief complaint: Chest Pain Stated complaint: CHEST PAIN, SOB Time Seen by Provider: 10/06/24 18:05 Mode of arrival: walk-in History of Present Illness HPI narrative: Patient is a 19-year-old female who presents to the ER with concern of chest pain. 10-05 Patient states she was working upstairs in our facility when she developed a sensation in her epigastric area that went into the substernal chest region. She notes that it does go down and wraparound to her back. She denies any nausea, notes mild shortness of breath with a history of anxiety. She denies any significant pleuritic chest pain in her chest is tender to touch along with her epigastric region. She ate chips earlier today before symptoms started she denies any nausea vomiting or diarrhea. 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 She has had no prior history of PE or DVT. No esophageal or cardiac abnormalities reported from her history since . Patient appears nontoxic and in no acute distress. She did not take any medication for her symptoms and has stable vital signs on arrival. Onset (ago): hour(s) (1 hour prior to arrival ) Radiation: Reports back Severity: moderate Quality: Reports burning, aching and constant Relieving factors: Reports none Exacerbating factors: Reports none Related Data Home Medications ?Medication ?Instructions ?Recorded ?Confirmed loratadine 10 mg tablet (Claritin) 10 mg PO DAILY 09/04/24 10/06/24 albuterol sulfate 2.5 mg/3 mL 2.5 mg inhalation Q6H PRN 10/06/24 10/06/24 (0.083 %) solution for nebulization shortness of breath or wheezing albuterol sulfate 90 mcg/actuation 2 inh inhalation Q6H PRN shortness 10/06/24 10/06/24 aerosol inhaler of breath or wheezing budesonide 0.25 mg/2 mL suspension 0.25 mg inhalation Q12H PRN 10/06/24 10/06/24 for nebulization shortness of breath or wheezing Previous Rx's ?Medication ?Instructions ?Recorded tizanidine 2 mg tablet 2 mg PO .qhs PRN muscle spasticity 10/06/24 5 days #5 tabs Allergies Allergy/AdvReac Type Severity Reaction Status Date / Time albuterol (From Ventolin HFA) AdvReac thrush Verified 10/06/24 18:10 Opioid HPI Opioid Management Most Recent Opioid Data: Last Pain Scale 8 Today, 20:58 Last ED Pain Assessment Today, 18:33 Last MAR Pain Assessment Today, 20:58 Review of Systems ROS Constitutional Denies: fever or chills Eyes Denies: change in vision, blurry vision or seeing flashes Ears, nose, mouth, and throat Denies: throat pain or neck pain Cardiovascular Denies: chest pain or palpitations Respiratory Denies: shortness of breath Gastrointestinal Reports: abdominal pain (epigastrig), nausea, vomiting and diarrhea; Denies: heartburn or constipation Genitourinary Denies: painful urination or urinary frequency Musculoskeletal Denies: back pain, neck pain or extremity pain Integumentary/Breast Denies: rash Neurological Denies: headache Psychiatric Denies: anxiety Endocrine Denies: excessive urination Hematologic/Lymphatic Denies: easy bruising PFSH PFSH Social History Little interest or pleasure in doing things: not at all Feeling down, depressed, or hopeless: not at all Exam Narrative Exam Narrative: Nurses notes and vital signs reviewed and patient is not hypoxic. General: The patient appears well and in no apparent distress. Patient is resting comfortably on cart. Skin: Warm, dry, no pallor noted. Head: Normocephalic, atraumatic. Neck: Supple, trachea mid-line, no tenderness, no lymphadenopathy Eye: Pupils are equal, round and reactive to light, EOMI Ears, Nose, Mouth, and Throat: external inspection unremarkable. Cardiovascular: Regular Rate and Rhythm Respiratory: Patient is in no distress, no accessory muscle use, lungs are clear to auscultation, no wheezing, rales or rhonchi. Chest Wall: Tenderness with palpation of the sternum Back: non-tender, no CVA tenderness mild scoliotic curvature mid thoracic. Musculoskeletal: normal ROM, no tenderness, no swelling GI: Normal bowel sounds, epigastric region is tender to palpation, right lower and left lower quadrants of the abdomen are nontender., no masses appreciated. No rebound, guarding, or rigidity noted. Neurological: A&O x4 Psychiatric: Cooperative Constitutional Vital Signs, click to edit/add: Last Vital Signs Temp 98.3 F 10/06/24 18:10 Pulse 68 10/06/24 20:30 Resp 19 10/06/24 19:30 BP 96/46 L 10/06/24 20:30 Pulse Ox 98 10/06/24 20:30 O2 Del Method Room Air 10/06/24 18:10 Course Vital Signs Vital signs: Vital Signs Temperature 98.3 F 10/06/24 18:10 Pulse Rate 73 10/06/24 18:10 Respiratory Rate 20 10/06/24 18:10 Blood Pressure 128/82 10/06/24 18:10 Pulse Oximetry 98 10/06/24 18:10 Oxygen Delivery Method Room Air 10/06/24 18:10 Temperature 98.3 F 10/06/24 18:10 Pulse Rate 68 10/06/24 20:30 Respiratory Rate 19 10/06/24 19:30 Blood Pressure 96/46 L 10/06/24 20:30 Pulse Oximetry 98 10/06/24 20:30 Oxygen Delivery Method Room Air 10/06/24 18:10 Medical Decision Making [facility] Narrative Medical decision making narrative: Patient presents with history of known genetic condition and mother and father present at bedside to confirm her history no current history of any cardiac or esophageal concerns. She has not experienced any chest or epigastric pain in the past and symptoms started 1 hour prior to arrival she was eating chips earlier today around 430. She is given Pepcid IV and GI cocktail. We will check labs and reassess patient's symptoms. Patient reevaluated, nursing staff reported that her symptoms were worse upon my entry to the room the patient states her symptoms are unchanged oral and IV medication given. We discussed her laboratory studies she is agreeable to an IV dose of Toradol but has requested half doses of medication her only having 1 kidney. She is aware that her kidney function was normal . She will also be given oral Tylenol. Her pulse ox has remained 100% on room air. Her blood pressure has dropped slightly at rest and is being rechecked by nursing staff. We discussed the utility of a CTA of the chest which would involve IV contrast. Patient states she has had IV contrast in the past but mother initially states that she is allergic to it herself and is apprehensive about her receiving contrast with only having 1 kidney. The mother then states that the patient has been very active in the past few days working on the floor in the hospital and also visiting a local [employer] doing things such as riding a 4 jackson and being very active and feels this could just be musculoskeletal if all the labs are within normal limits. They have compromised to do a D-dimer test as she appears very low risk and we will hold on CTA of the chest if negative. Family and pt decline CT with contrast with concern of her 1 kidney and feels her chest pain is musculoskeletal with recent activity. In reviewing the medical record the patient did have a visit here on 11/22 for thoracic back pain and was given a mild muscle relaxant. Patient's mother at bedside along with father we discussed her D-dimer test being within normal limits. The patient appears in no distress with stable vitals her blood pressure has been between 115/76-100 systolic with discussion. Patient history of riding a 4 jackson that was large consistent with more likely chest wall strain given her reproducible pain on palpation in her recent history. She also notes that her thoracic back pain has been present with her scoliosis and she did not get her muscle relaxant filled with prior ER visit but has been dealing with symptoms as they occur. She declines the Tylenol dose here stating that she takes a much more reduced dose because it can make her feel dizzy and lightheaded. We discussed the potential side effects of an oral muscle relaxant and recommend she take it only at bedtime if needed 2 mg dose will be prescribed of tizanidine with risks and benefits discussed. She is mostly encouraged to follow-up with her family doctor to discuss potential physical therapy referral given her medication aversion. Patient and mother along with father agree with disposition home given her symptoms and stable vitals for ongoing evaluation. The patient is to followup with primary care physician in next 1-2 days or to return to the emergency department should any of the signs or symptoms worsen or new symptoms develop. Patient had questions answered. The patient agrees with the following Diagnosis and Treatment plan and the patient will be discharged home. Lab Data Labs: Lab Results 10/06/24 Range/Units 19:50 WBC 10.0 (4.0-11.0) 10^3/uL RBC 4.97 (4.20-5.40) 10^6/uL Hgb 13.9 (12.0-16.0) g/dL Hct 40.1 (36.0-48.0) % MCV 80.7 L (81.0-99.0) fL MCH 28.0 (26.7-34.0) pg MCHC 34.7 (29.9-35.2) g/dL RDW 13.2 (11.0-15.0) % Plt Count 311 (150-450) 10^3/uL MPV 9.9 (9.5-13.5) fL Neut % (Auto) 54.1 (43.0-75.0) % Lymph % (Auto) 33.6 (20.5-60.0) % Lea % (Auto) 9.0 (1.7-12.0) % Eos % (Auto) 2.2 (0.9-7.0) % Baso % (Auto) 0.9 (0.2-2.0) % Neut # (Auto) 5.4 (1.4-6.5) 10^3/uL Lymph # (Auto) 3.4 (1.2-3.8) 10^3/uL Lea # (Auto) 0.9 H (0.3-0.8) 10^3/uL Eos # (Auto) 0.2 (0.0-0.7) 10^3/uL Baso # (Auto) 0.1 (0.0-0.1) 10^3/uL Abs Immat Gran (auto) 0.02 (0.00-0.03) 10^3/uL Imm/Tot Granulo (auto) 0.2 (0.0-0.5) % D-Dimer <0.19 (<=0.59) mg/L FEU Sodium 143 (136-145) mmol/L Potassium 3.4 L (3.5-5.1) mmol/L Chloride 102 (98-107) mmol/L Carbon Dioxide 27.9 (21.0-32.0) mmol/L Anion Gap 16.5 BUN 15.0 (7.0-18.0) mg/dL Creatinine 0.80 (0.55-1.02) mg/dL Est GFR ( Amer) >60 (>=60 mL/min/1.73m^2) Est GFR (Non-Af Amer) >60 (>=60 mL/min/1.73m^2) BUN/Creatinine Ratio 18.8 Glucose 75 (74-106) mg/dL Calcium 9.6 (8.5-10.1) mg/dL Total Bilirubin 0.5 (0.2-1.0) mg/dL AST 32 (15-37) U/L ALT 53 (14-59) U/L Alkaline Phosphatase 89 (46-116) U/L Troponin I High Sens 4.1 (4.0-51.3) pg/mL Total Protein 8.0 (6.4-8.2) g/dL Albumin 4.3 (3.4-5.0) g/dL Globulin 3.7 g/dL Albumin/Globulin Ratio 1.2 Amylase 45 (25-115) U/L Lipase 27.0 (16.0-77.0) U/L Imaging Data Chest x-ray: Radiologist's impression: ITS Impressions Chest X-Ray 10/06/24 18:51 IMPRESSION: No acute process. Impression dictated by: Aníbal Coronel M.D. 10/06/2024 7:42 PM Dictation Location: [employer] Electronically authenticated by: [id number] Y Date: 10/06/2024 19:42 ECG Data Attestation: I personally reviewed and interpreted this ECG as follows: Interpretation: EKG interpretation: Emergency Department physician interpretation, normal sinus rhythm 79 bpm, no ectopy, no ST segment elevation, normal axis. Discharge Plan Discharge Chief Complaint: Chest Pain Clinical Impression: Myofascial pain, Anterior chest wall pain, Chest pain Patient Disposition: Home, Self-Care Time of Disposition Decision: 21:03 Condition: Good Prescriptions / Home Meds: New tizanidine 2 mg tablet 2 mg PO .qhs PRN (Reason: muscle spasticity) 5 Days Qty: 5 0RF No Action loratadine [Claritin] 10 mg tablet 10 mg PO DAILY albuterol sulfate 2.5 mg /3 mL (0.083 %) solution for nebulization 2.5 mg inhalation Q6H PRN (Reason: shortness of breath or wheezing) albuterol sulfate 90 mcg/actuation HFA aerosol inhaler 2 inh INHALATION Q6H PRN (Reason: shortness of breath or wheezing) budesonide 0.25 mg/2 mL suspension for nebulization 0.25 mg inhalation Q12H PRN (Reason: shortness of breath or wheezing) Print Language: Gabonese Instructions: Chest Pain (ED), Musculoskeletal Pain (ED) Additional Instructions: Call pcp to discuss symptoms- consider Physical therapy Referrals: Sylvia Cleaning, DO [Primary Care Provider] - As soon as possible
[2024-10-06] MEDS: lidocaine HCL 15 ML, MAG HYDROX/ALUMINUM HYD/SIMETH 30 ML, HYOSCYAMINE SULFATE 0.25 MG PO (18:55)
[2024-10-06 20:08] LABS: Basophils Absolute Auto 0.1 10^3/uL (0.0-0.1); Basophils Percent Auto 0.9 % (0.2-2.0); Eosinophils Absolute Auto 0.2 10^3/uL (0.0-0.7); Eosinophils Percent Auto 2.2 % (0.9-7.0); Hematocrit 40.1 % (36.0-48.0); Hemoglobin 13.9 g/dL (12.0-16.0); Immature Granulocytes Abs Auto 0.02 10^3/uL (0.00-0.03); Immature Granulocytes Pct Auto 0.2 % (0.0-0.5); Lymphocytes Absolute Auto 3.4 10^3/uL (1.2-3.8); Lymphocytes Percent Auto 33.6 % (20.5-60.0); Mean Corpuscular HGB Conc 34.7 g/dL (29.9-35.2); Mean Corpuscular Volume 80.7 fL (81.0-99.0); Mean Platelet Volume 9.9 fL (9.5-13.5); Monocytes Absolute Auto 0.9 10^3/uL (0.3-0.8); Neutrophils Absolute Auto 5.4 10^3/uL (1.4-6.5); Neutrophils Percent Auto 54.1 % (43.0-75.0); Platelet Count 311 10^3/uL (150-450); Red Blood Count 4.97 10^6/uL (4.20-5.40); Red Cell Distribution Width 13.2 % (11.0-15.0)
[2024-10-06] MEDS: FAMOTIDINE/PF 20 MG/2 ML VIAL IV (20:08)
[2024-10-06 20:27] LABS: Alanine Aminotransferase 53 U/L (14-59); Albumin Globulin Ratio 1.2; Albumin Level 4.3 g/dL (3.4-5.0); Alkaline Phosphatase 89 U/L (46-116); Anion Gap 16.5; Aspartate Amino Transferase 32 U/L (15-37); BUN Creatinine Ratio 18.8; Bilirubin Total 0.5 mg/dL (0.2-1.0); Calcium 9.6 mg/dL (8.5-10.1); Carbon Dioxide 27.9 mmol/L (21.0-32.0); Chloride 102 mmol/L (98-107); Estimated GFR (African America >60 (>=60 mL/min/1.73m^2); Estimated GFR (Non-African Ame >60 (>=60 mL/min/1.73m^2); Globulin 3.7 g/dL; Glucose 75 mg/dL (74-106); Potassium 3.4 mmol/L (3.5-5.1); Sodium 143 mmol/L (136-145)
[2024-10-06 20:31] LABS: Amylase 45 U/L (25-115); Troponin I High Sensitivity 4.1 pg/mL (4.0-51.3)
[2024-10-06 20:55] LABS: D Dimer <0.19 mg/L FEU (<=0.59)
[2024-10-06] MEDS: KETOROLAC TROMETHAMINE 30 MG/ML VIAL 15 MG IVP (20:58)
== END 2024-10-06 21:15 | disposition home or self-care (01) ==
PROVIDERS: Personal Emergency Response Attendant; Emergency Provider Emergency Medicine; PCP Family Medicine
DX: R07.89 Other chest pain (principal); M79.18 Myalgia, other site; R06.02 Shortness of breath; R10.13 Epigastric pain; F41.9 Anxiety disorder, unspecified; Q87.2 Congenital malformation syndromes predominantly involving limbs
CPT/HCPCS: 36415; 71046; 80053; 81001; 82150; 83690; 84484; 85025; 85378; 93005; 96374; 96375; 99285; J1885; J3490